=== PATIENT | male | born 1985 | race Caucasian/White ===

== ENCOUNTER → 2018-04-28 09:22 | Outpatient (REF) | payer SELFPAY | LOC: OM 09:22 | PROVIDERS: Visit Provider Nurse Practitioner Family | DX: Z02.83 Encounter for blood-alcohol and blood-drug test (principal) ==

== ENCOUNTER → 2018-04-28 09:23 | Outpatient (REF) | payer SELFPAY | LOC: OM 09:23 | PROVIDERS: Visit Provider Nurse Practitioner Family | DX: Z02.1 Encounter for pre-employment examination (principal) ==

== ENCOUNTER 2018-06-07 15:41 | Emergency (ER) | payer SELFPAY ==
[2018-06-07 15:52] VITALS: BP 126/80; PULSE 61; RESP 18; TEMP 36.8; O2SAT 99
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
[2018-06-07 17:30] LABS: Abs Immature Grans 0.01 k/cumm (0.0-0.09); Absolute Basophil Count 0.04 k/cumm (0.0-0.2); Absolute Eosinophil Count 0.17 k/cumm (0.0-0.7); Absolute Monocyte Count 0.71 k/cumm (0.11-0.7); Basophils % 0.4; Eosinophils % 1.8; HCT 44.5 % (40.0-50.0); Immature Grans % 0.1; Lymphocytes % 31.5; Mean Corp. HGB Concentration 33.7 g/dL (32.0-36.0); Mean Corpuscular Hemoglobin 30.4 pg (27.0-33.0); Mean Corpuscular Volume 90.3 fL (80-95); Mean Platelet Volume 10.9 fL (8.0-11.0); Monocytes % 7.5; Neutrophils % 58.7; Platelet Count 217 x1000/uL (130-400); RBC 4.93 m/cumm (4.50-6.00); RBC Distribution Width 12.9 % (11.8-14.1); White Blood Cell Count 9.53 k/cumm (4.4-10.8)
[2018-06-07 17:38] LABS: Bilirubin Negative (Negative); Blood Negative (Negative); Clarity Clear; Glucose Negative (Negative); Ketones Negative (Negative); Leukocyte Esterase Negative (Negative); Nitrite Negative (Negative); Urobilinogen 0.2 EU/dL (Up TO 0.2); pH 5.5 (5-8)
[2018-06-07] MEDS: Lidocaine 5% Patch 1 PATCH TP (17:43)
[2018-06-07 17:44] LABS: ALT 18 U/L (12-78); AST 22 U/L (15-37); Albumin 4.1 g/dL (3.4-5.0); Alkaline Phosphatase 68 U/L (46-116); Anion Gap 7.3 mmol/L (3-11); BUN 14 mg/dL (7-18); Bilirubin, Total 0.4 mg/dL (0.2-1.0); CO2 30.7 mmol/L (21.0-32.0); Chloride 101 mmol/L (98-107); Glucose 88 mg/dL (70-100); Magnesium 1.9 mg/dL (1.8-2.4); Potassium 4.1 mmol/L (3.5-5.1); Sodium 139 mmol/L (136-145); Total Protein 7.5 g/dL (6.4-8.2)
[2018-06-07] MEDS: Normal Saline 1,000 ML 150 ML IV (17:44)
[2018-06-07 17:45] LABS: Troponin I < 0.02 ng/mL (0.00-0.06)
--- NOTE | 2018-06-08 09:09 | PDOC.ERCMPRO ---
Care Management Progress Note 06/08/18-Pt seen on 06/07/18 with back pain by LYDIA Malin. Referral for f/u within one week and pcp establish sent to [facility] as Narendra Alvarado is registered nurse practitioner.
--- NOTE | 2018-06-18 16:36 | NUR.NOTE ---
IV D/C'D at 1830 Nursing Note:
== END 2018-06-07 19:15 | disposition home or self-care (01) ==
PROVIDERS: Emergency Provider Physician Assistant
DX: M53.3 Sacrococcygeal disorders, not elsewhere classified (principal); M54.41 Lumbago with sciatica, right side
CPT/HCPCS: 80053; 93005; 99283; 81003; 83735; 84484; 85025; 93010

== ENCOUNTER 2018-07-09 17:12 | Emergency (ER) | payer SELFPAY ==
[2018-07-09 17:26] VITALS: BP 137/97; PULSE 78; RESP 18; TEMP 36.7; O2SAT 99
[2018-07-09] MEDS: Penicillin V POTASSIUM 500 MG TAB PO (17:53)
[2018-07-09] MEDS: Ketorolac 60 MG/2 ML VIAL IM (17:53)
--- NOTE | 2018-07-09 18:04 | W.ED.GENAD ---
Discharge Plan Disposition Patient Disposition: HOME Condition: Stable Discharge Details Chief Complaint: FacialProb Clinical Impression: Infected dental caries Primary Care Provider: NONE,NONE ED Provider: Marin Holley Home Meds and New Rx's Prescriptions: New penicillin V potassium 500 mg tablet 500 mg PO QID 7 Days Qty: 28 RF: 0 No Action aspirin-caffeine [Prieto Back and Body] 1 EACH tablet 2 tab PO PRN PRNRF: 0 Discharge Instructions Instructions: Dental Abscess (ED), Dental Caries (ED) Additional Instructions: Return for any new or significant worsening of symptoms. Otherwise take your antibiotics as prescribed and until fully gone and follow-up with a dentist preferably in the next week. Until 2 AM please use acetaminophen as needed for pain control. Then you may take 600 mg of ibuprofen every 6 hours as needed for discomfort. Referrals: Primary Care Provider [Outside] (Follow-up with dentist preferably next week) Discharge Data Discharge Date/Time-TO BE ENTERED AT DEPARTURE: 07/09/18 18:38 Medical Decision Making Patient presents the emergency department chief complaint of dental pain. Patient states his he has had chronic dental issues and has not taken good care of his teeth but over the last 3 days he has noticed significant worsening of his discomfort. Patient denies any injury or trauma does state an old fractured tooth #6 that has been bothering him for a while but biggest concern is some slight swelling to his face and severe pain to tooth #31 and #2. Physical exam shows tenderness to the above-mentioned teeth but no significant fluctuance, induration, tongue and rest of oral cavity is normal and no trismus is noted. Doubt retropharyngeal or peritonsillar abscess, David's angina, severe abscess. Patient does have mild right-sided anterior cervical lymphadenopathy otherwise exam is unremarkable. Patient states that he does not have any insurance and does not have much financial resources. Patient placed up on Pen-V K for 1 week. Patient offered dental block emergency department which he declined at this time. Patient was given IM ketorolac for pain control. Patient encouraged to take antibiotic as prescribed until fully completed and use dsyq-axk-[id number] pain medication as needed for discomfort. After discussion of diagnosis and plan of care patient has no further needs, questions, or concerns and states clear understanding to return to the emergency department for any worsening symptoms. HPI General Mode of arrival: ambulatory. Date/Time Provider Initiated Documentation: 07/09/18 17:30. Limitations to Documentation: no limitations. Information obtained by: patient. History of Present Illness 33 year old M presents to the emergency department with the chief complaint of Dental pain, described as severe, with intensity rated at 10. Quality is described as sharp, and is localized to the mouth. and it has been constant. No relieving factors improve symptom(s), Patient notes no other symptoms.. Patient did receive the following treatments prior to arrival, NSAID Related Data Home Medications Medication Instructions Recorded Confirmed aspirin-caffeine [Prieto Back & 2 tab PO PRN PRN 10/27/16 07/09/18 Body Caplet] penicillin V potassium 500 mg PO QID 7 Days #28 tab 07/09/18 Previous Rx's Medication Instructions Recorded penicillin V potassium 500 mg PO QID 7 Days #28 tab 07/09/18 Allergies Allergy/AdvReac Type Severity Reaction Status Date / Time iodine Allergy Intermediate rash/swelli Unverified 06/07/18 15:57 ng codeine AdvReac Mild vomiting Unverified 06/07/18 15:57 General Stated Complaint: FacialProb ANH: 3 Review of Systems Constitutional Denies chills and Denies fever(s) ENT Reports as per HPI, Denies change in voice, Reports dental pain, Denies dysphagia, Reports mouth pain and Denies tongue swelling Cardiovascular Denies chest pain and Denies dyspnea Respiratory Denies dyspnea Gastrointestinal Denies dysphagia Integumentary/Breasts Denies rash Allergic/Immunologic Denies tongue swelling PFS Social History Smoking/Tobacco Use Status: Current every day Exam Const General: cooperative Orientation: alert, awake and oriented x3 Limitations: mental status not altered [facility] Head: normal to inspection, normocephalic and atraumatic Ears: hearing grossly normal bilaterally, normal mastoids bilaterally and no periauricular adenopathy General nose exam: external nose normal Mouth: oropharynx normal, no drooling, no muffled voice, normal tongue and no trismus Teeth and gingiva: abnormal tooth or associated gingiva, caries, poor dentition and other (Partially fractured tooth #6 with erythema surrounding the base of the tooth) Throat: posterior oropharynx normal, tonsils normal and uvula midline Eyes General: appearance normal, both eyes and all related structures Pupils: PERRL Neck Neck: normal visual inspection, full ROM, no lymphadenopathy, no meningeal signs, trachea midline, supple, no anterior neck swelling and no midline deformity Resp Effort & Inspection: normal respiratory effort and able to speak in complete sentences Course Vital Signs Temperature 36.7 C 07/09/18 17:26 Pulse 78 07/09/18 17:26 Respiratory Rate 18 07/09/18 17:26 Blood Pressure 137/97 H 07/09/18 17:26 Pulse Oximetry 99 07/09/18 17:26 Temperature 36.7 C 07/09/18 17:26 Temperature Source Skin 07/09/18 17:26 Pulse 78 07/09/18 17:26 Respiratory Rate 18 07/09/18 17:26 Respiratory Effort 07/09/18 17:30 Blood Pressure 137/97 H 07/09/18 17:26 Blood Pressure Position Sitting 07/09/18 17:26 Pulse Oximetry 99 07/09/18 17:26 Oxygen Delivery Method Room Air 07/09/18 17:26 Oxygen Flow Rate 0 07/09/18 17:26 Pain Level 10 07/09/18 17:53
--- NOTE | 2018-07-09 18:20 | NUR.NOTE ---
Nursing Note: Per [employer] VO, patient given 3 tabs of penicillin vk 500 mg for home use
[2018-07-09] MEDS: Penicillin V POTASSIUM 500 MG TAB 1500 MG (18:24)
== END 2018-07-09 18:38 | disposition home or self-care (01) ==
PROVIDERS: Emergency Provider Nurse Practitioner Family
DX: K04.7 Periapical abscess without sinus (principal); F17.210 Nicotine dependence, cigarettes, uncomplicated
CPT/HCPCS: 96372; 99284; J1885

== ENCOUNTER 2018-08-21 10:38 | Emergency (ER) | payer MEDICAID, SELFPAY ==
[2018-08-21 10:42] VITALS: BP 110/87; PULSE 66; RESP 16; TEMP 36.9; O2SAT 99
--- NOTE | 2018-08-21 11:01 | W.ED.GENAD ---
Discharge Plan Disposition Patient Disposition: HOME Condition: Good Discharge Details Chief Complaint: DentalOral Clinical Impression: Dental abscess Primary Care Provider: None,None ED Provider: Kendall Osorio Home Meds and New Rx's Prescriptions: New penicillin V potassium 500 mg tablet 500 mg PO QID Qty: 40 RF: 0 Discharge Instructions Instructions: Dental Abscess (ED) Referrals: Marin Mcknight [DENTIST] - Sindhu Jung DDS [DENTIST] - Gretchen Sue DDS [MD CONSULTING PHYSICIAN] - Medical Decision Making With history of IVDU and recurrent dental abscess we will treat with Pen VK for ten days. We discussed the risk of IVDU and dental infection and complications with pericarditis. He did not want to stay for any cardiac workup for his intermittent CP. I explained he should return if symptoms worsen. Otherwise with dentist SEAN. He verbally agreed. HPI General Date/Time Provider Initiated Documentation: 08/21/18 10:40. Limitations to Documentation: no limitations. Information obtained by: patient and family. History of Present Illness 33 year old M presents to the emergency department with the chief complaint of dental abscess, HPI Narrative: 33 y/o male here with c/o dental pain with abscess. Has chronic dental issues with last antibiotics for dental abscess approximately one month ago, prescribed out of this ED. Last night he felt a pop and drainage to the right lower back dentition. He has previous history of IVDU but not for a few years. Denies fever or chills. Last time his face and throat swelled up and he is concerned that might happen again. He has a dentist and previously was offered root canal and/or losing the tooth. He was trying to salvage the tooth but feels he may have to have them pulled. Related Data Home Medications Medication Instructions Recorded Confirmed penicillin V potassium 500 mg PO QID #40 tab 08/21/18 Previous Rx's Medication Instructions Recorded penicillin V potassium 500 mg PO QID #40 tab 08/21/18 Allergies Allergy/AdvReac Type Severity Reaction Status Date / Time iodine Allergy Intermediate rash/swelli Unverified 08/21/18 10:47 ng codeine AdvReac Mild vomiting Unverified 08/21/18 10:47 General Stated Complaint: DentalOral ANH: 4 Review of Systems Eyes Reports system reviewed and no additional complaints, except as docu ENT Reports dental pain (with abscess) Cardiovascular Reports chest pain (intermittently ) Respiratory Reports system reviewed and no additional complaints, except [facility] Gastrointestinal Reports system reviewed and no additional complaints, except as [facility] Neurologic Reports system reviewed and no additional complaints, except as [facility] Social History Smoking/Tobacco Use Status: Current every day Exam Const General: cooperative, comfortable and no acute distress Nutritional Appearance: well nourished Orientation: alert, awake and oriented x3 HENMT Head: atraumatic Ears: hearing grossly normal bilaterally, external ears normal and TM's normal bilaterally General nose exam: external nose normal and nares normal Mouth: oral mucosae normal, lip normal, tongue normal, oropharynx normal and moist mucous membranes Teeth and gingiva: dentition normal and gingiva abnormal tender (at tooth number 32 and behind) Throat: posterior oropharynx normal Eyes General: appearance normal, both eyes and all related structures Neck Neck: normal visual inspection, full ROM and no lymphadenopathy Resp Effort & Inspection: normal respiratory effort Auscultation: clear to auscultation bilaterally Cardio Rate: regular rate Rhythm: regular rhythm Heart Sounds: S1 normal, S2 normal and no murmurs Skin General skin exam: no rashes or lesions noted Neuro General: alert, awake, oriented x3 and gait normal Extrem General: full ROM and normal capillary refill Psych Appearance: grossly normal and well kempt Mental Status: mental status grossly normal Speech and Movement: speech and movement normal Mood: congruent mood Affect: normal affect Attitude: cooperative Course Vital Signs Temperature 36.9 C 08/21/18 10:42 Pulse 66 08/21/18 10:42 Respiratory Rate 16 08/21/18 10:42 Blood Pressure 110/87 08/21/18 10:42 Pulse Oximetry 99 08/21/18 10:42 Temperature 36.9 C 08/21/18 10:42 Temperature Source Skin 08/21/18 10:42 Pulse 66 08/21/18 10:42 Respiratory Rate 16 08/21/18 10:42 Respiratory Effort Non-Labored 08/21/18 10:45 Blood Pressure 110/87 08/21/18 10:42 Pulse Oximetry 99 08/21/18 10:42 Pain Level 2 08/21/18 10:48
--- NOTE | 2018-08-21 11:05 | ED.GENADUL_ITS ---
Discharge Plan Disposition Patient Disposition: HOME Condition: Good Discharge Details Chief Complaint: DentalOral Clinical Impression: Dental abscess Primary Care Provider: None,None ED Provider: Kendall Osorio Home Meds and New Rx's Prescriptions: New penicillin V potassium 500 mg tablet 500 mg PO QID Qty: 40 RF: 0 Discharge Instructions Instructions: Dental Abscess (ED) Referrals: Marin Mcknight [DENTIST] - Sindhu Jung DDS [DENTIST] - Gretchen Sue DDS [MD CONSULTING PHYSICIAN] - Medical Decision Making With history of IVDU and recurrent dental abscess we will treat with Pen VK for ten days. We discussed the risk of IVDU and dental infection and complications with pericarditis. He did not want to stay for any cardiac workup for his intermittent CP. I explained he should return if symptoms worsen. Otherwise with dentist SEAN. He verbally agreed. HPI General Date/Time Provider Initiated Documentation: 08/21/18 10:40 . Limitations to Documentation: no limitations . Information obtained by: patient and family . History of Present Illness 33 year old M presents to the emergency department with the chief complaint of dental abscess, HPI Narrative: 33 y/o male here with c/o dental pain with abscess. Has chronic dental issues with last antibiotics for dental abscess approximately one month ago, prescribed out of this ED. Last night he felt a pop and drainage to the right lower back dentition. He has previous history of IVDU but not for a few years. Denies fever or chills. Last time his face and throat swelled up and he is concerned that might happen again. He has a dentist and previously was offered root canal and/or losing the tooth. He was trying to salvage the tooth but feels he may have to have them pulled. Related Data Home Medications Medication Instructions Recorded Confirmed penicillin V potassium 500 mg PO QID #40 tab 08/21/18 Previous Rx's Medication Instructions Recorded penicillin V potassium 500 mg PO QID #40 tab 08/21/18 Allergies Allergy/AdvReac Type Severity Reaction Status Date / Time iodine Allergy Intermediate rash/swelli Unverified 08/21/18 10:47 ng codeine AdvReac Mild vomiting Unverified 08/21/18 10:47 General Stated Complaint: DentalOral ANH: 4 Review of Systems Eyes Reports system reviewed and no additional complaints, except as docu ENT Reports dental pain (with abscess) Cardiovascular Reports chest pain (intermittently ) Respiratory Reports system reviewed and no additional complaints, except [facility] Gastrointestinal Reports system reviewed and no additional complaints, except as [facility] Neurologic Reports system reviewed and no additional complaints, except as [facility] Social History Smoking/Tobacco Use Status: Current every day Exam Const General: cooperative, comfortable and no acute distress Nutritional Appearance: well nourished Orientation: alert, awake and oriented x3 HENMT Head: atraumatic Ears: hearing grossly normal bilaterally, external ears normal and TM's normal bilaterally General nose exam: external nose normal and nares normal Mouth: oral mucosae normal, lip normal, tongue normal, oropharynx normal and moist mucous membranes Teeth and gingiva: dentition normal and gingiva abnormal tender (at tooth number 32 and behind) Throat: posterior oropharynx normal Eyes General: appearance normal, both eyes and all related structures Neck Neck: normal visual inspection, full ROM and no lymphadenopathy Resp Effort & Inspection: normal respiratory effort Auscultation: clear to auscultation bilaterally Cardio Rate: regular rate Rhythm: regular rhythm Heart Sounds: S1 normal, S2 normal and no murmurs Skin General skin exam: no rashes or lesions noted Neuro General: alert, awake, oriented x3 and gait normal Extrem General: full ROM and normal capillary refill Psych Appearance: grossly normal and well kempt Mental Status: mental status grossly normal Speech and Movement: speech and movement normal Mood: congruent mood Affect: normal affect Attitude: cooperative Course Vital Signs Temperature 36.9 C 08/21/18 10:42 Pulse 66 08/21/18 10:42 Respiratory Rate 16 08/21/18 10:42 Blood Pressure 110/87 08/21/18 10:42 Pulse Oximetry 99 08/21/18 10:42 Temperature 36.9 C 08/21/18 10:42 Temperature Source Skin 08/21/18 10:42 Pulse 66 08/21/18 10:42 Respiratory Rate 16 08/21/18 10:42 Respiratory Effort Non-Labored 08/21/18 10:45 Blood Pressure 110/87 08/21/18 10:42 Pulse Oximetry 99 08/21/18 10:42 Pain Level 2 08/21/18 10:48
== END 2018-08-21 11:18 | disposition home or self-care (01) ==
LOC: ER 11:18
PROVIDERS: Emergency Provider Nurse Practitioner Family
DX: R68.84 Jaw pain (principal); K04.7 Periapical abscess without sinus
CPT/HCPCS: 99283

== ENCOUNTER 2018-09-27 20:12 | Outpatient (REF) | payer MEDICAID, SELFPAY ==
[2018-09-27 21:12] LABS: ALT 26 U/L (12-78); AST 28 U/L (15-37); Albumin 4.2 g/dL (3.4-5.0); Alkaline Phosphatase 68 U/L (46-116); Anion Gap 8.1 mmol/L (3-11); BUN 19 mg/dL (7-18); Bilirubin, Total 0.3 mg/dL (0.2-1.0); CO2 28.9 mmol/L (21.0-32.0); CREATININE 0.95 mg/dL (0.70-1.30); Calcium 9.4 mg/dL (8.5-10.1); Chloride 103 mmol/L (98-107); Glucose 82 mg/dL (70-100); Sodium 140 mmol/L (136-145); Total Protein 7.1 g/dL (6.4-8.2)
[2018-09-27 21:45] LABS: Abs Immature Grans 0.01 k/cumm (0.0-0.09); Absolute Basophil Count 0.04 k/cumm (0.0-0.2); Absolute Eosinophil Count 0.13 k/cumm (0.0-0.7); Absolute Lymphocyte Count 2.85 k/cumm (1.2-3.4); Absolute Monocyte Count 0.38 k/cumm (0.11-0.7); Absolute Neutrophil Count 5.25 k/cumm (1.2-6.7); Basophils % 0.5; Eosinophils % 1.5; Immature Grans % 0.1; Lymphocytes % 32.9; Mean Corp. HGB Concentration 34.1 g/dL (32.0-36.0); Mean Corpuscular Hemoglobin 30.8 pg (27.0-33.0); Mean Corpuscular Volume 90.1 fL (80-95); Mean Platelet Volume 11.8 fL (8.0-11.0); Monocytes % 4.4; Neutrophils % 60.6; Platelet Count 209 x1000/uL (130-400); RBC 4.55 m/cumm (4.50-6.00); RBC Distribution Width 12.7 % (11.8-14.1); White Blood Cell Count 8.66 k/cumm (4.4-10.8)
[2018-09-29 11:30] LABS: Hepatitis C Ab w Rflx HCV PCR Reactive (NEGAT)
[2018-09-30 15:40] LABS: HCV RNA Detection Quantitative Undetected IU/mL (UNDECT)
== END 2018-09-27 20:32 ==
LOC: NCHCN 20:12
PROVIDERS: Visit Provider Nurse Practitioner Family
DX: F43.20 Adjustment disorder, unspecified (principal); B19.20 Unspecified viral hepatitis C without hepatic coma; F19.10 Other psychoactive substance abuse, uncomplicated; M54.5 Low back pain; M54.31 Sciatica, right side; K04.7 Periapical abscess without sinus
CPT/HCPCS: 80053; 86803; 85025; 87522

== ENCOUNTER 2018-12-26 19:08 | Emergency (ER) | payer MEDICAID, SELFPAY ==
[2018-12-26 19:16] VITALS: BP 135/76; PULSE 64; RESP 17; TEMP 36.6; O2SAT 100
--- NOTE | 2018-12-26 19:34 | W.ED.GENAD ---
Discharge Plan Disposition Patient Disposition: HOME Condition: Good Discharge Details Chief Complaint: DentalOral Clinical Impression: Pain, dental Primary Care Provider: Adriana Mercer ED Provider: Walt Beatty Home Meds and New Rx's Prescriptions: New acetaminophen [Mapap Extra Strength] 500 MG tablet 1,000 mg PO Q6H 5 Days Qty: 60 RF: 0 ibuprofen [Motrin IB] 200 MG tablet 600 mg PO Q6H 5 Days Qty: 60 RF: 0 clindamycin HCl 150 mg capsule 450 mg PO TID 7 Days Qty: 63 RF: 0 Discharge Instructions Instructions: Toothache (ED) Additional Instructions: Please take the medication as directed. Please follow-up immediately with your dentist. Please take the antibiotic with yogurt to prevent any diarrhea. If you notice any worsening of your symptoms, or any new symptoms such as vomiting, diarrhea, fever, chills, shortness of breath, chest pain, numbness, weakness, or fainting , please return immediately to the emergency department for reevaluation. Please follow up with your primary care provider as soon as possible for reassessment and reevaluation. As always, it was a pleasure participating in your medical care today. Referrals: Adriana Mercer [Primary Care Provider] - Medical Decision Making This is a 33-year-old male who presents for evaluation of left frontal upper dental pain for the last 24 hours. Physical exam demonstrates evidence of poor dentition, no evidence of a significantly fractured tooth. No evidence of abscess requiring drainage. Physical exam is concerning for colitis, most likely secondary to chronic underlying dental caries and infection. We will start clindamycin for the patient as he is tolerated this well before. He does not want a dental block. We discussed red flags which return the importance of close follow-up with his dentist as well as Tylenol Motrin at home. The patient understands. I have extensively reviewed the treatment plan and discharge instructions with the patient. I have addressed all patient concerns at this time. The patient was made aware of what symptoms to monitor for that would warrant a return to the emergency department. Discussed the plan with the patient, they demonstrate verbal understanding and agreement with our assessment and plan at this time. HPI General Date/Time Provider Initiated Documentation: 12/26/18 19:34. HPI Narrative: This is a 33-year-old male with past medical history of dental caries, who is already had these from 2-3 place, who presents today for evaluation of left frontal upper tooth pain. It occurred 24 hours while he was eating, he was chewing something hard and felt a pop. Since then he has had notable pain for his left upper frontal tooth. He denies any fever or chills. He has had similar symptoms like this in the past which have required antibiotics before. He denies any fever, chills, headache, chest pain, shortness of breath. He denies any other medical problems, IV illicit drug use or other pertinent history. He has contacted his dentist who recommended antibiotics prior to evaluation for tooth extraction. Related Data Home Medications Medication Instructions Recorded Confirmed acetaminophen [Mapap Extra 1,000 mg PO Q6H 5 Days #60 tab 12/26/18 Strength] clindamycin HCl 450 mg PO TID 7 Days #63 cap 12/26/18 ibuprofen [Motrin Ib] 600 mg PO Q6H 5 Days #60 tab 12/26/18 Previous Rx's Medication Instructions Recorded acetaminophen [Mapap Extra 1,000 mg PO Q6H 5 Days #60 tab 12/26/18 Strength] clindamycin HCl 450 mg PO TID 7 Days #63 cap 12/26/18 ibuprofen [Motrin Ib] 600 mg PO Q6H 5 Days #60 tab 12/26/18 Allergies Allergy/AdvReac Type Severity Reaction Status Date / Time iodine Allergy Intermediate rash/swelli Unverified 12/26/18 19:19 ng codeine AdvReac Mild vomiting Unverified 12/26/18 19:19 General Stated Complaint: DentalOral ANH: 4 Review of Systems Review of Systems All systems reviewed & are unremarkable except as noted in HPI and below PFSH Social History Smoking/Tobacco Use Status: Current every day Drug use: Daily Substance use type: marijuana Do you feel safe at home: Yes Do you feel safe in your relationship?: Yes Exam Narrative Exam Narrative: 1.Const: Well-nourished, Well-developed, appearing stated age 2.Eyes: PERRL, no conjunctival injection, and symmetrical lids. 3.ENT: Atraumatic external nose and ears. Moist MM. Neck: Symmetric, trachea midline, No thyromegaly. Mildly poor dentition throughout, left upper tooth #11 demonstrates notable tenderness, no evidence of fracture or abscess. No evidence of periapical swelling. No signs of discharge. No evidence of perioral or periodontal abscess. 4.CVS: +S1/S2, No murmurs or gallops. Peripheral pulses 2+ and equal in all extremities. Brisk capillary refill in all extremities. 5.RESP: Unlabored respiratory effort. Clear to auscultation bilaterally. No wheezes rales or rhonchi 6.GI: Soft, Nontender/Nondistended, No hepatosplenomegaly. No guarding or rebound. 7.MSK: Normocephalic/Atraumatic, Extremities w/o deformity or ttp No cyanosis or clubbing, Normal movement of all extremities 8.Skin: Warm, Dry. No rashes or lesions. 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 Sensation grossly intact, no focal neurologic deficits. 10.Psych: (AAO) x3. Appropriate mood and affect Course Vital Signs Temperature 36.6 C 12/26/18 19:16 Pulse 64 12/26/18 19:16 Respiratory Rate 17 12/26/18 19:16 Blood Pressure 135/76 12/26/18 19:16 Pulse Oximetry 100 12/26/18 19:16 Temperature 36.6 C 12/26/18 19:16 Temperature Source Temporal Artery Scan 12/26/18 19:16 Pulse 64 12/26/18 19:16 Respiratory Rate 17 12/26/18 19:16 Respiratory Effort Non-Labored 12/26/18 19:19 Blood Pressure 135/76 12/26/18 19:16 Blood Pressure Position Sitting 12/26/18 19:16 Pulse Oximetry 100 12/26/18 19:16 Oxygen Delivery Method Room Air 12/26/18 19:16 Oxygen Flow Rate 0 12/26/18 19:16 Pain Level 4 12/26/18 19:16
[2018-12-26 19:45] VITALS: BP 135/76; PULSE 64; RESP 17; TEMP 36.6; O2SAT 100
== END 2018-12-26 19:50 | disposition home or self-care (01) ==
PROVIDERS: Emergency Provider Student in an Organized Health Care Education/Training Program; PCP Nurse Practitioner
DX: K08.89 Other specified disorders of teeth and supporting structures (principal); F17.210 Nicotine dependence, cigarettes, uncomplicated
CPT/HCPCS: 99283

== ENCOUNTER 2019-01-14 12:09 | Emergency (ER) | payer MEDICAID, SELFPAY ==
[2019-01-14 12:12] VITALS: BP 138/88; PULSE 98; RESP 20; TEMP 37.1; O2SAT 96
[2019-01-14 12:17] VITALS: RESP 20
--- NOTE | 2019-01-14 12:32 | ED.GENADUL_ITS ---
Discharge Plan Disposition Patient Disposition: HOME Condition: Improving Discharge Details Chief Complaint: GenMedical Clinical Impression: Frontal sinusitis Primary Care Provider: Adriana Mercer ED Provider: Srinivas Crump Home Meds and New Rx's Prescriptions: New amoxicillin-pot clavulanate 875-125 mg tablet 1 tab PO BID 10 Days Qty: 20 RF: 0 Discharge Instructions Instructions: Sinusitis (ED) Additional Instructions: Please stop the previously prescribed Clindamycin and begin Augmentin. Follow-up with Chadd in clinic at [facility] for recheck. Call for an appointment time. May continue Tylenol and ibuprofen as prescribed previously. Medical Decision Making 33-year-old male presents complaining of headache, recurrent dental infection, as well as chest tightness and anxiety due to legal issues regarding in the custody of a child. He is afebrile, anxious, but well-appearing with normal blood pressure, pulse in the 90s. Differential diagnosis is broad in this gentleman and therefore screening head CT ordered to rule out acute sinusitis, screening EKG and troponin obtained given his complaints of chest tightness, as well screening basic chemistries obtained patient given oral Ativan. CT does reveal mild sinusitis of the frontal and ethmoid sinuses. No acute brain findings. Labs are reassuring. Discussed findings with patient. I feel he will have better response to Augmentin and will have him discontinue the clindamycin. He understands need to follow-up with dentistry as well as in primary care clinic for recheck. Stable for discharge to home at this time Lab Data Lab results reviewed: Yes I reviewed the patient's lab results. Laboratory Results - last 24 hr 01/14/19 01/14/19 12:57 12:57 WBC 8.13 RBC 4.42 L Hgb 13.4 L Hct 39.8 L MCV 90.0 MCH 30.3 MCHC 33.7 RDW 12.4 Plt Count 171 MPV 10.4 Immature Gran % 0.1 Neutrophils % 53.7 Lymphocytes % 37.5 Monocytes % 5.7 Eosinophils % 2.5 Basophils % 0.5 Absolute Neutrophils 4.37 Absolute Lymphocytes 3.05 Absolute Monocytes 0.46 Absolute Eosinophils 0.20 Absolute Basophils 0.04 Sodium 139 Potassium 4.0 Chloride 104 Carbon Dioxide 27.3 Anion Gap 7.7 BUN 16 Creatinine 0.86 Estimated GFR/1.73 m2 >= 60.00 Glucose 86 Calcium 9.1 Total Bilirubin 0.2 AST 22 ALT 29 Alkaline Phosphatase 56 Troponin I < 0.02 Total Protein 6.6 Albumin 3.6 ECG Data Attestation: I personally reviewed and interpreted this ECG (s) as follows: Interpretation: Normal sinus rhythm with a rate of 91, QRS is narrow, no ST segment elevation HPI General Mode of arrival: ambulatory . Date/Time Provider Initiated Documentation: 01/14/19 12:09 . Limitations to Documentation: no limitations . Information obtained by: patient . History of Present Illness 33 year old M presents to the emergency department with the chief complaint of Headache and anxiety and tooth pain, described as moderate, Quality is described as aching, dull and constant, and is localized to the head, face and mouth. Patient reports no radiation. Patient started experiencing this day(s) and it has been constant. No relieving factors improve symptom(s), No exacerbating factors reported . Patient notes other (Anxiety regarding custody of daughter and chest tightness); denies fever/chills, loss of appetite and nausea/vomiting. Patient did receive the following treatments prior to arrival, none Related Data Home Medications Medication Instructions Recorded Confirmed amoxicillin-pot clavulanate 1 tab PO BID 10 Days #20 tab 01/14/19 Previous Rx's Medication Instructions Recorded amoxicillin-pot clavulanate 1 tab PO BID 10 Days #20 tab 01/14/19 Allergies Allergy/AdvReac Type Severity Reaction Status Date / Time iodine Allergy Intermediate rash/swelli Unverified 01/14/19 12:16 ng codeine AdvReac Mild vomiting Unverified 01/14/19 12:16 General Stated Complaint: GenMedical ANH: 3 Review of Systems Review of Systems Taking clindamycin since yesterday. Admits to a great deal of stress regarding custody of his daughter. Positive anxiety. No fall or trauma. No facial numbness or weakness. No change to hearing. 8 systems reviewed and otherwise neg PFSH Social History Smoking/Tobacco Use Status: Current every day Alcohol Intake: former Drug use: Daily Substance use type: marijuana Do you feel safe at home: Yes Do you feel safe in your relationship?: Yes Exam Narrative Exam Narrative: GEN: awake, alert, oriented 3. Pleasant, well groomed, interactive and anxious. HEAD: Normocephalic, atraumatic ENT: Mucous membranes moist, oropharynx with few dental caries, tender to percussion of maxillary central incisors, External ear exam unremarkable EYES: PERRL, EOMI NECK: Full ROM, no MICHI, no menigismus CHEST/RESP: Nontender, clear to auscultation bilateral, no wheeze/rhonchi/rales CARDIOVASCULAR: RRR, no murmur, rub spencer. 2+ Rad pulse bilateral ABDOMEN: Soft, nontender, no mass. +Bowel sounds EXT: Full ROM, no edema, no rash Neuro: Grossly normal neurologic exam, conversant, interactive. Psych: Speech fluent, thoughts congruent, affect anxious Course Vital Signs Temperature 37.1 C 01/14/19 12:12 Pulse 98 H 01/14/19 12:12 Respiratory Rate 20 01/14/19 12:12 Blood Pressure 138/88 01/14/19 12:12 Pulse Oximetry 96 01/14/19 12:12 Temperature 37.1 C 01/14/19 12:12 Temperature Source Temporal Artery Scan 01/14/19 12:12 Pulse 98 H 01/14/19 12:12 Respiratory Rate 20 01/14/19 12:17 Respiratory Effort Non-Labored 01/14/19 12:17 Respiratory Depth Normal 01/14/19 12:17 Respiratory Pattern Normal 01/14/19 12:17 Blood Pressure 138/88 01/14/19 12:12 Pulse Oximetry 96 01/14/19 12:12 Oxygen Delivery Method Room Air 01/14/19 12:12 Oxygen Flow Rate 0 01/14/19 12:12 Pain Level 0 01/14/19 12:12
[2019-01-14] MEDS: Acetaminophen 500 MG TAB 1000 MG PO (13:05)
[2019-01-14] MEDS: LORazepam 1 MG TAB PO (13:05)
[2019-01-14 13:06] LABS: Abs Immature Grans 0.01 k/cumm (0.0-0.09); Absolute Basophil Count 0.04 k/cumm (0.0-0.2); Absolute Lymphocyte Count 3.05 k/cumm (1.2-3.4); Absolute Monocyte Count 0.46 k/cumm (0.11-0.7); Absolute Neutrophil Count 4.37 k/cumm (1.2-6.7); Basophils % 0.5; Eosinophils % 2.5; HCT 39.8 % (40.0-50.0); HGB 13.4 g/dL (13.5-17.5); Immature Grans % 0.1; Lymphocytes % 37.5; Mean Corp. HGB Concentration 33.7 g/dL (32.0-36.0); Mean Corpuscular Hemoglobin 30.3 pg (27.0-33.0); Mean Platelet Volume 10.4 fL (8.0-11.0); Monocytes % 5.7; Neutrophils % 53.7; Platelet Count 171 x1000/uL (130-400); RBC 4.42 m/cumm (4.50-6.00); RBC Distribution Width 12.4 % (11.8-14.1); White Blood Cell Count 8.13 k/cumm (4.4-10.8)
--- NOTE | 2019-01-14 13:25 | DI.CT_ITS ---
SYMPTOMS/DIAGNOSIS: RECENT DENTAL INFECTIONS, HEADACHE CRANIAL CT: Noncontrast cranial CT was performed. The ventricular system is normal in appearance. There is no evidence of acute intracranial hemorrhage, mass effect or midline shift. The orbital and temporal bone structures appear intact. Please see accompanying sinus CT for evaluation of the paranasal sinuses. CONCLUSION: No evidence of intracranial process. SINUS CT: CT examination of the paranasal sinuses was performed without contrast administration. There is mild mucoperiosteal thickening involving frontal and ethmoid sinuses bilaterally and minimal mucoperiosteal thickening is present in the maxillary antra bilaterally. The ostiomeatal complexes of the maxillary antra appear intact bilaterally. Sphenoid sinuses are clear. No bony abnormality seen. CONCLUSION: Findings consistent with minimal chronic sinusitis predominantly involving frontal and ethmoid sinuses.
[2019-01-14 13:28] LABS: ALT 29 U/L (12-78); AST 22 U/L (15-37); Albumin 3.6 g/dL (3.4-5.0); Alkaline Phosphatase 56 U/L (46-116); Anion Gap 7.7 mmol/L (3-11); BUN 16 mg/dL (7-18); Bilirubin, Total 0.2 mg/dL (0.2-1.0); CO2 27.3 mmol/L (21.0-32.0); CREATININE 0.86 mg/dL (0.70-1.30); Calcium 9.1 mg/dL (8.5-10.1); Chloride 104 mmol/L (98-107); Glucose 86 mg/dL (70-100); Sodium 139 mmol/L (136-145); Total Protein 6.6 g/dL (6.4-8.2)
[2019-01-14 13:30] LABS: Troponin I < 0.02 ng/mL (0.00-0.06)
== END 2019-01-14 13:40 | disposition home or self-care (01) ==
LOC: ER 13:43
PROVIDERS: Emergency Provider Emergency Medicine; PCP Nurse Practitioner
DX: J01.10 Acute frontal sinusitis, unspecified (principal); F41.9 Anxiety disorder, unspecified; K04.7 Periapical abscess without sinus
CPT/HCPCS: 36415; 80053; 93005; 99285; 70450; 70486; 84484; 85025; 93010; 99284

== ENCOUNTER 2019-02-14 13:27 | Emergency (ER) | payer MEDICAID, SELFPAY ==
[2019-02-14 13:32] VITALS: BP 126/76; PULSE 82; RESP 20; TEMP 36.8; O2SAT 100
--- NOTE | 2019-02-14 14:00 | W.ED.GENAD ---
Discharge Plan Discharge Details Chief Complaint: Nausea/Vomit/Diar Primary Care Provider: Adriana Mercer ED Provider: Katina Bermeo Home Meds and New Rx's Prescriptions: No Action ibuprofen 600 mg Tablet 600 mg PO TID RF: 0 Discharge Data Discharge Date/Time-TO BE ENTERED AT DEPARTURE: 02/14/19 16:48 Medical Decision Making Rashid Penn is a 33 y/o man with h/o IVDU, hepatitis C, who presented to the emergency department with 5 days of watery stool after multiple courses of abx in the recent past. Denies abd pain. Pt is well and non-toxic appearing on exam, benign cardiopulmonary and abd exam, appears well hydrated. Concern for c. diff vs other possible instestinal pathogen, possible metabolic/lyte disturbance. Plan for screening labs, stool studies. CMP okay. Pt provided stool sample. C. diff not yet resulted. Pt states that he would like to leave, wants to go eat dinner, and does not want to wait any longer for his test results. He states that he wants to leave now, and would like to be called in the am with results. He drank fluids without issue in the ED. I had a lengthy discussion with the Pt re: risks of leaving [facility]MA inc /permanent disability, Pt continued to wish to leave, states he is tired of waiting and feels overall fine. I had a lengthy discussion with the Pt re: RTED precautions, that he may change his mind at any time and RTED, and importance of outpt f/u. Pt verbalized understanding of the plan and was amenbale. All questions answered. Pt dced to home with clear plan for outpt f/u. Pt elected to leave ED without d/c paperwork, d/c information discussed in detail prior to his departure. I contacted the Pt on the evening of 02/15/19 by phone, flagyl prescribed, Pt feeling somewhat improved after one dose, no fevers or pain, outpt f/u has been scheduled. I again discussed RTED precautions, importance of outpt f/u. Medical Records Medical records reviewed: Yes I reviewed the patient's medical records. Lab Data Lab results reviewed: Yes I reviewed the patient's lab results. HPI General Mode of arrival: ambulatory. Date/Time Provider Initiated Documentation: 02/14/19 13:35. Limitations to Documentation: no limitations. Information obtained by: patient, family, RN notes reviewed and old records reviewed. HPI Narrative: Rashid Penn is a 33-year-old man with history of hepatitis C, IV drug use, poor dentition presenting to the emergency department with diarrhea. Patient reports that he has been treated 9 times with antibiotics for dental infection in the past year. He reports that he finished his last course of antibiotics for dental infection approximately 1.5 weeks ago. Patient reports that several days after that he had a tooth removed. He reports that after the tooth removal and approximately 5 days ago, he developed copious watery diarrhea. Patient reports that he has too many episodes of diarrhea to count per day. He reports his symptoms have been unchanged since onset and are severe. No bloody or dark stool. Patient reports that since the dental extraction he has had pain in his left forehead when he clenches his jaw, but otherwise has no pain. No fevers, no vomiting, no rash, no shortness of breath, no cough. He states he has been eating and drinking as usual, but has a bowel movement essentially immediately after any PO intake. Related Data Home Medications Medication Instructions Recorded Confirmed ibuprofen 600 mg PO TID 02/14/19 02/14/19 Allergies Allergy/AdvReac Type Severity Reaction Status Date / Time iodine Allergy Intermediate rash/swelli Unverified 02/14/19 13:34 ng codeine AdvReac Mild vomiting Unverified 02/14/19 13:34 General Stated Complaint: Nausea/Vomit/Diar NAH: 3 Review of Systems Review of Systems Constitutional: denies fevers Eyes: denies eye pain ENT: reports pain in his left hindu when clenching his jaw, denies dental pain, sore throat Cardiovascular: denies chest pain Respiratory: denies SOB, cough GI: denies abdominal pain, vomiting, reports diarrhea : denies flank pain MSK: denies back pain, neck pain, arthralgias, myalgias Skin: denies rash Neuro: denies headaches, weakness PFSH Social History Smoking/Tobacco Use Status: Current every day Alcohol Intake: former Drug use: Daily Substance use type: marijuana Do you feel safe at home: Yes Do you feel safe in your relationship?: Yes Exam Narrative Exam Narrative: Constitutional: well and [id number], pleasant, conversing normally, walking about the ED without issue HENT: head atraumatic/normocephalic/normal inspection, mucous membranes moist, dental extraction site healing well without erythema or discharge, no intraoral lesion, no TTP over left TMJ, over left facial bones, or over area of pain in left hindu, no facial rash Eyes: conjunctiva normal, sclera normal, pupils 3mm b/l Neck: no stridor, normal ROM, trachea midline Resp: normal work of breathing, LCTAB Cardio: normal rate, normal rhythm, no murmur appreciated GI: abdomen soft, non-tender, non-distended Skin: warm, dry, normal color, no rash Neuro: alert, not altered, grossly non-focal, normal tone Ext: moving all extremities equally Psych: normal mood, normal affect, normal behavior Course Vital Signs Temperature 36.8 C 02/14/19 13:32 Pulse 82 02/14/19 13:32 Respiratory Rate 20 02/14/19 13:32 Blood Pressure 126/76 02/14/19 13:32 Pulse Oximetry 100 02/14/19 13:32 Temperature 36.8 C 02/14/19 13:32 Temperature Source Temporal Artery Scan 02/14/19 13:32 Pulse 82 02/14/19 13:32 Respiratory Rate 20 02/14/19 13:32 Respiratory Effort Non-Labored 02/14/19 13:32 Blood Pressure 126/76 02/14/19 13:32 Blood Pressure Position Sitting 02/14/19 13:32 Pulse Oximetry 100 02/14/19 13:32 Oxygen Delivery Method Room Air 02/14/19 13:32 Oxygen Flow Rate 0 02/14/19 13:32 Pain Level 3 02/14/19 13:32
[2019-02-14 16:08] LABS: Abs Immature Grans 0.03 k/cumm (0.0-0.09); Absolute Basophil Count 0.04 k/cumm (0.0-0.2); Absolute Eosinophil Count 0.09 k/cumm (0.0-0.7); Absolute Monocyte Count 0.81 k/cumm (0.11-0.7); Basophils % 0.3; Eosinophils % 0.7; HCT 42.9 % (40.0-50.0); Immature Grans % 0.2; Lymphocytes % 17.7; Mean Corpuscular Volume 88.6 fL (80-95); Mean Platelet Volume 10.5 fL (8.0-11.0); Monocytes % 6.4; Neutrophils % 74.7; Platelet Count 190 x1000/uL (130-400); RBC 4.84 m/cumm (4.50-6.00); RBC Distribution Width 12.3 % (11.8-14.1); White Blood Cell Count 12.62 k/cumm (4.4-10.8)
[2019-02-14 16:09] LABS: Bilirubin Negative (Negative); Blood Negative (Negative); Clarity Clear; Glucose Negative (Negative); Ketones Negative (Negative); Leukocyte Esterase Negative (Negative); Nitrite Negative (Negative); Specific Gravity <= 1.005 (1.005-1.025); Urobilinogen 0.2 EU/dL (Up TO 0.2); pH 5.5 (5-8)
[2019-02-14 16:11] LABS: Absolute Lymphocyte Count 2.23 k/cumm (1.2-3.4); Absolute Neutrophil Count 9.43 k/cumm (1.2-6.7)
--- NOTE | 2019-02-14 16:11 | ED.GENADUL_ITS ---
Discharge Plan Discharge Details Chief Complaint: Nausea/Vomit/Diar Primary Care Provider: Adriana Mercer ED Provider: Katina Bermeo Home Meds and New Rx's Prescriptions: No Action ibuprofen 600 mg Tablet 600 mg PO TID RF: 0 Discharge Data Discharge Date/Time-TO BE ENTERED AT DEPARTURE: 02/14/19 16:48 Medical Decision Making Rashid Penn is a 33 y/o man with h/o IVDU, hepatitis C, who presented to the emergency department with 5 days of watery stool after multiple courses of abx in the recent past. Denies abd pain. Pt is well and non-toxic appearing on exam, benign cardiopulmonary and abd exam, appears well hydrated. Concern for c. diff vs other possible instestinal pathogen, possible metabolic/lyte disturbance. Plan for screening labs, stool studies. CMP okay. Pt provided stool sample. C. diff not yet resulted. Pt states that he would like to leave, wants to go eat dinner, and does not want to wait any longer for his test results. He states that he wants to leave now, and would like to be called in the am with results. He drank fluids without issue in the ED. I had a lengthy discussion with the Pt re: risks of leaving [facility] /permanent disability, Pt continued to wish to leave, states he is tired of waiting and feels overall fine. I had a lengthy discussion with the Pt re: RTED precautions, that he may change his mind at any time and RTED, and importance of outpt f/u. Pt verbalized understanding of the plan and was amenbale. All questions answered. Pt dced to home with clear plan for outpt f/u. Pt elected to leave ED without d/c paperwork, d/c information discussed in detail prior to his departure. I contacted the Pt on the evening of 02/15/19 by phone, flagyl prescribed, Pt feeling somewhat improved after one dose, no fevers or pain, outpt f/u has been scheduled. I again discussed RTED precautions, importance of outpt f/u. Medical Records Medical records reviewed: Yes I reviewed the patient's medical records. Lab Data Lab results reviewed: Yes I reviewed the patient's lab results. HPI General Mode of arrival: ambulatory . Date/Time Provider Initiated Documentation: 02/14/19 13:35 . Limitations to Documentation: no limitations . Information obtained by: patient, family, RN notes reviewed and old records reviewed . HPI Narrative: Rashid Penn is a 33-year-old man with history of hepatitis C, IV drug use, poor dentition presenting to the emergency department with diarrhea. Patient reports that he has been treated 9 times with antibiotics for dental infection in the past year. He reports that he finished his last course of antibiotics for dental infection approximately 1.5 weeks ago. Patient reports that several days after that he had a tooth removed. He reports that after the tooth removal and approximately 5 days ago, he developed copious watery diarrhea. Patient reports that he has too many episodes of diarrhea to count per day. He reports his symptoms have been unchanged since onset and are severe. No bloody or dark stool. Patient reports that since the dental extraction he has had pain in his left forehead when he clenches his jaw, but otherwise has no pain. No fevers, no vomiting, no rash, no shortness of breath, no cough. He states he has been eating and drinking as usual, but has a bowel movement essentially immediately after any PO intake. Related Data Home Medications Medication Instructions Recorded Confirmed ibuprofen 600 mg PO TID 02/14/19 02/14/19 Allergies Allergy/AdvReac Type Severity Reaction Status Date / Time iodine Allergy Intermediate rash/swelli Unverified 02/14/19 13:34 ng codeine AdvReac Mild vomiting Unverified 02/14/19 13:34 General Stated Complaint: Nausea/Vomit/Diar ANH: 3 Review of Systems Review of Systems Constitutional: denies fevers Eyes: denies eye pain ENT: reports pain in his left roman catholic when clenching his jaw, denies dental pain, sore throat Cardiovascular: denies chest pain Respiratory: denies SOB, cough GI: denies abdominal pain, vomiting, reports diarrhea : denies flank pain MSK: denies back pain, neck pain, arthralgias, myalgias Skin: denies rash Neuro: denies headaches, weakness PFSH Social History Smoking/Tobacco Use Status: Current every day Alcohol Intake: former Drug use: Daily Substance use type: marijuana Do you feel safe at home: Yes Do you feel safe in your relationship?: Yes Exam Narrative Exam Narrative: Constitutional: well and [id number], pleasant, conversing normally, walking about the ED without issue HENT: head atraumatic/normocephalic/normal inspection, mucous membranes moist, dental extraction site healing well without erythema or discharge, no intraoral lesion, no TTP over left TMJ, over left facial bones, or over area of pain in left roman catholic, no facial rash Eyes: conjunctiva normal, sclera normal, pupils 3mm b/l Neck: no stridor, normal ROM, trachea midline Resp: normal work of breathing, LCTAB Cardio: normal rate, normal rhythm, no murmur appreciated GI: abdomen soft, non-tender, non-distended Skin: warm, dry, normal color, no rash Neuro: alert, not altered, grossly non-focal, normal tone Ext: moving all extremities equally Psych: normal mood, normal affect, normal behavior Course Vital Signs Temperature 36.8 C 02/14/19 13:32 Pulse 82 02/14/19 13:32 Respiratory Rate 20 02/14/19 13:32 Blood Pressure 126/76 02/14/19 13:32 Pulse Oximetry 100 02/14/19 13:32 Temperature 36.8 C 02/14/19 13:32 Temperature Source Temporal Artery Scan 02/14/19 13:32 Pulse 82 02/14/19 13:32 Respiratory Rate 20 02/14/19 13:32 Respiratory Effort Non-Labored 02/14/19 13:32 Blood Pressure 126/76 02/14/19 13:32 Blood Pressure Position Sitting 02/14/19 13:32 Pulse Oximetry 100 02/14/19 13:32 Oxygen Delivery Method Room Air 02/14/19 13:32 Oxygen Flow Rate 0 02/14/19 13:32 Pain Level 3 02/14/19 13:32
[2019-02-14 16:19] LABS: ALT 20 U/L (12-78); AST 20 U/L (15-37); Alkaline Phosphatase 67 U/L (46-116); Anion Gap 6.6 mmol/L (3-11); BUN 18 mg/dL (7-18); Bilirubin, Total 0.3 mg/dL (0.2-1.0); CO2 29.4 mmol/L (21.0-32.0); CREATININE 0.92 mg/dL (0.70-1.30); Calcium 9.4 mg/dL (8.5-10.1); Chloride 102 mmol/L (98-107); Glucose 91 mg/dL (70-100); Potassium 3.9 mmol/L (3.5-5.1); Sodium 138 mmol/L (136-145); Total Protein 7.4 g/dL (6.4-8.2)
--- NOTE | 2019-02-15 08:55 | W.ED.FU ---
Follow Up Plan: Patient called the emergency department and requesting results. Results were reviewed and patient was C. difficile positive which was not noted on yesterday's documentation or visit. Patient continues to have symptoms. Discussed oral hydration methods with patient and called in vancomycin 125mg every 6 hours for 10 days. Review of yesterday's vital signs show that vital signs are stable with no significant tachycardia hypotension and over the phone not stating any worsening of condition discontinued symptoms. Called primary care office to have them contact patient for follow-up appointment and reexamination. Return precautions were discussed over the phone.
--- NOTE | 2019-02-15 09:50 | NUR.NOTE ---
Appt made for patient with pcp Chadd Quigley 02/21/19 at 12:15Nursing Note:
[2019-02-16 11:26] LABS: Campylobacter PCR SEE COMMENTS; Salmonella PCR SEE COMMENTS; Shiga Toxin PCR SEE COMMENTS; Shigella/Enteroinvasive Ecoli SEE COMMENTS
== END 2019-02-14 16:48 ==
PROVIDERS: Emergency Provider Student in an Organized Health Care Education/Training Program; PCP Nurse Practitioner
DX: R19.7 Diarrhea, unspecified (principal); Z53.29 Procedure and treatment not carried out because of patient's decision for other reasons
CPT/HCPCS: 36415; 80053; 87505; 99283; 81003; 85025; 87324

== ENCOUNTER 2019-04-18 11:31 | Emergency (ER) | payer MEDICAID, SELFPAY ==
[2019-04-18 11:40] VITALS: BP 116/68; PULSE 72; RESP 15; TEMP 36.5; O2SAT 100
[2019-04-18 12:31] LABS: Bilirubin Negative (Negative); Blood Negative (Negative); Clarity Clear (Clear); Glucose Negative (Negative); Ketones Negative (Negative); Leukocyte Esterase Negative (Negative); Nitrite Negative (Negative); Specific Gravity 1.015 (1.005-1.025); Urobilinogen 0.2 EU/dL (Up TO 0.2)
--- NOTE | 2019-04-18 12:54 | W.ED.GENAD ---
Discharge Plan Disposition Patient Disposition: HOME Condition: Good Discharge Details Chief Complaint: Urinary Clinical Impression: Encounter for medical screening examination Primary Care Provider: Chadd Quigley ED Provider: Walt Beatty Home Meds and New Rx's Prescriptions: No Action ibuprofen 600 mg Tablet 600 mg PO TID RF: 0 Discharge Instructions Additional Instructions: You will be contacted if your urine screens come back positive. Please follow-up closely with your primary care provider. If you notice any worsening of your symptoms, or any new symptoms such as burning when you pee, discharge from your penis, vomiting, diarrhea, fever, chills, shortness of breath, chest pain, numbness, weakness, or fainting , please return immediately to the emergency department for reevaluation. Please follow up with your primary care provider as soon as possible for reassessment and reevaluation. As always, it was a pleasure participating in your medical care today. Referrals: Chadd Quigley, COMPANY DOCTOR [Primary Care Provider] - Discharge Data Discharge Date/Time-TO BE ENTERED AT DEPARTURE: 04/18/19 13:09 Medical Decision Making This is a pleasant 33-year-old male who presents today for evaluation of medical screening exam. The patient significant other was diagnosed with bacterial vaginosis 2 weeks ago. She received a full course of Flagyl. At one episode of intercourse after this. The patient significant other has symptoms of mild nausea and epigastric pain, and Jed is concerned that this may be secondary to continued bacterial vaginosis and wants to be checked. He also wants to be checked for all other STDs. We discussed that the bacterial vaginosis diagnosis is just an overgrowth of normal bacteria and not true STI. The patient will be checked for gonorrhea, chlamydia, and trichomoniasis. He denies any other complaints at this time. Urine will be sent for testing. Patient will be contacted if his results are positive by case management. I have extensively reviewed the treatment plan and discharge instructions with the patient. I have addressed all patient concerns at this time. The patient was made aware of what symptoms to monitor for that would warrant a return to the emergency department. Discussed the plan with the patient, they demonstrate verbal understanding and agreement with our assessment and plan at this time. HPI General Date/Time Provider Initiated Documentation: 04/18/19 11:39. HPI Narrative: This is a 33-year-old male with a past medical history of previous C. difficile, dental caries and infections in the past, who presents today for evaluation of STD check. Patient states that 2 to 3 weeks ago his significant other was diagnosed with bacterial vaginosis. She received a full course of treatment, and then they had intercourse once after words. Since then the patient has had no complications, urethral discharge, dysuria, frequency, or testicular pain whatsoever. However he states he wants to be checked for STDs just to make sure nothing is getting missed. We did discuss that bacterial vaginosis is not an STD, but rather just an overgrowth of normal bacteria. Patient would still like to be tested at this time. No other complaints or modifying factors, he has no other concerns. Related Data Home Medications Medication Instructions Recorded Confirmed ibuprofen 600 mg PO TID 02/14/19 04/18/19 Allergies Allergy/AdvReac Type Severity Reaction Status Date / Time iodine Allergy Intermediate rash/swelli Unverified 04/18/19 11:47 ng codeine AdvReac Mild vomiting Unverified 04/18/19 11:47 General Stated Complaint: Urinary ANH: 4 Review of Systems Review of Systems All systems reviewed & are unremarkable except as noted in HPI and below PFSH Social History Smoking/Tobacco Use Status: Current every day Alcohol Intake: former Drug use: Daily Substance use type: marijuana Do you feel safe at home: Yes Do you feel safe in your relationship?: Yes Exam Narrative Exam Narrative: 1.Const: Well-nourished, Well-developed, appearing stated age 2.Eyes: PERRL, no conjunctival injection, and symmetrical lids. 3.ENT: Atraumatic external nose and ears. Moist MM. Neck: Symmetric, trachea midline, No thyromegaly. 4.CVS: +S1/S2, No murmurs or gallops. Peripheral pulses 2+ and equal in all extremities. Brisk capillary refill in all extremities. 5.RESP: Unlabored respiratory effort. Clear to auscultation bilaterally. No wheezes rales or rhonchi 6.GI: Soft, Nontender/Nondistended, No hepatosplenomegaly. No guarding or rebound. Genital exam demonstrates normally distended bilaterally descended testicles, no testicular, or penile tenderness. No urethral discharge. Normal cremasteric reflex bilaterally. 7.MSK: Normocephalic/Atraumatic, Extremities w/o deformity or ttp No cyanosis or clubbing, Normal movement of all extremities 8.Skin: Warm, Dry. No rashes or lesions. 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 Sensation grossly intact, no focal neurologic deficits. 10.Psych: (AAO) x3. Appropriate mood and affect Course Vital Signs Temperature 36.5 C 04/18/19 11:40 Pulse 72 04/18/19 11:40 Respiratory Rate 15 04/18/19 11:40 Blood Pressure 116/68 04/18/19 11:40 Pulse Oximetry 100 04/18/19 11:40 Temperature 36.5 C 04/18/19 11:40 Temperature Source Temporal Artery Scan 04/18/19 11:40 Pulse 72 04/18/19 11:40 Respiratory Rate 15 04/18/19 11:40 Respiratory Effort Non-Labored 04/18/19 11:46 Blood Pressure 116/68 04/18/19 11:40 Blood Pressure Position Sitting 04/18/19 11:40 Pulse Oximetry 100 04/18/19 11:40 Oxygen Delivery Method Room Air 04/18/19 11:40 Oxygen Flow Rate 0 04/18/19 11:40 Pain Level 0 04/18/19 11:40 Lab/Test Results Lab/Test Results: Laboratory Tests Range/Units 04/18/19 12:18 Urine Color (Yellow) Yellow Urine Clarity (Clear) Clear Urine pH (5-8) 7.0 Ur Specific [place] (1.005-1.025) 1.015 Urine Protein (Negative) mg/dL Negative Urine Ketones (Negative) mg/dL Negative Urine Blood (Negative) Negative Urine Nitrite (Negative) Negative Urine Bilirubin (Negative) Negative Urine Urobilinogen (Up TO 0.2) EU/dL 0.2 Ur Leukocyte Esterase (Negative) Negative Urine Glucose (Negative) mg/dL Negative
[2019-04-18 13:08] VITALS: PULSE 72; RESP 15
[2019-04-18 15:30] LABS: Bacteria Rare HPF (Negative); C & S Indicated? No; Casts Negative LPF (Negative); Crystals Negative HPF (Negative); Epithelial Cells Negative HPF (Negative); Mucus Negative (Negative); Other Cells Negative (Negative); RBC 0-2 (0-2); WBC Negative HPF (0-5)
[2019-04-19 14:11] LABS: Chlamydia Result Negative; GC Result Negative; Specimen Description URINE
== END 2019-04-18 13:09 | disposition home or self-care (01) ==
PROVIDERS: Emergency Provider Student in an Organized Health Care Education/Training Program; PCP Nurse Practitioner Family
DX: Z11.3 Encounter for screening for infections with a predominantly sexual mode of transmission (principal); Z11.8 Encounter for screening for other infectious and parasitic diseases
CPT/HCPCS: 87491; 87591; 99282; 81003; 81015

== ENCOUNTER 2019-05-24 10:51 | Outpatient (REF) | payer MEDICAID, SELFPAY ==
[2019-05-24 19:08] LABS: HCT 48.1 % (40.0-50.0); HGB 16.3 g/dL (13.5-17.5); Mean Corp. HGB Concentration 33.9 g/dL (32.0-36.0); Mean Corpuscular Volume 88.6 fL (80-95); Mean Platelet Volume 11.7 fL (8.0-11.0); Platelet Count 235 x1000/uL (130-400); RBC 5.43 m/cumm (4.50-6.00); RBC Distribution Width 12.5 % (11.8-14.1); White Blood Cell Count 11.05 k/cumm (4.4-10.8)
[2019-05-24 19:13] LABS: Bilirubin Negative (Negative); Blood Trace-intact (Negative); Clarity Clear (Clear); Glucose Negative (Negative); Ketones Trace mg/dL (Negative); Leukocyte Esterase Negative (Negative); Nitrite Negative (Negative); Specific Gravity 1.015 (1.005-1.025); Urobilinogen 0.2 EU/dL (Up TO 0.2); pH 7.5 (5-8)
[2019-05-24 19:54] LABS: Epithelial Cells Negative HPF (Negative); RBC 0-2 (0-2); WBC Negative HPF (0-5)
[2019-05-24 19:55] LABS: Bacteria Rare HPF (Negative); C & S Indicated? No; Casts Negative LPF (Negative); Crystals Negative HPF (Negative); Mucus Negative (Negative); Other Cells Negative (Negative)
[2019-05-24 19:56] LABS: ALT 24 U/L (16-63); AST 34 U/L (15-37); Albumin 5.2 g/dL (3.4-5.0); Alkaline Phosphatase 76 U/L (46-116); Anion Gap 9.5 mmol/L (3-11); BUN 14 mg/dL (7-18); Bilirubin, Total 0.7 mg/dL (0.2-1.0); CO2 28.5 mmol/L (21.0-32.0); CREATININE 1.04 mg/dL (0.70-1.30); Calcium 10.1 mg/dL (8.5-10.1); Chloride 101 mmol/L (98-107); Glucose 78 mg/dL (70-100); Potassium 4.9 mmol/L (3.5-5.1); Sodium 139 mmol/L (136-145); Total Protein 8.7 g/dL (6.4-8.2)
[2019-05-26 11:12] LABS: HIV-1/2 Ag & Ab Screen Negative (NEGAT)
[2019-05-26 11:51] LABS: Syphilis Serology (RPR) Negative (Negative)
[2019-05-26 13:23] LABS: Chlamydia Result Negative; GC Result Negative; Specimen Description URINE
== END 2019-05-24 11:11 ==
LOC: NCHCN 10:51
PROVIDERS: PCP Nurse Practitioner Family; Visit Provider Nurse Practitioner Family
DX: K62.5 Hemorrhage of anus and rectum (principal); R63.4 Abnormal weight loss; R36.9 Urethral discharge, unspecified; Z11.4 Encounter for screening for human immunodeficiency virus [HIV]; Z11.3 Encounter for screening for infections with a predominantly sexual mode of transmission
CPT/HCPCS: 80053; 85027; 87389; 87491; 87591; 81003; 81015; 86592

== ENCOUNTER 2019-07-13 19:00 | Emergency (ER) | payer MEDICAID, SELFPAY ==
[2019-07-13 19:08] VITALS: BP 119/87; PULSE 97; RESP 16; TEMP 36.6; O2SAT 96
--- NOTE | 2019-07-13 19:13 | ED.GENADUL_ITS ---
Discharge Plan Disposition Patient Disposition: HOME Condition: Good Discharge Details Chief Complaint: EyeProblem Clinical Impression: Foreign body in eye, Abrasion of eyelid Primary Care Provider: Chadd Quigley ED Provider: Myrtle Funez Home Meds and New Rx's Prescriptions: Continued ibuprofen 600 mg Tablet 600 mg PO TID RF: 0 Discharge Instructions Instructions: Erythromycin (Into the eye), Eye Foreign Body (ED) Additional Instructions: Small nasreen debris was removed from her eye. Please apply 1/2 inch erythromycin ointment to your left eye 4 times daily. [facility] If you develop increased pain, fevers/chills, discharge, change in your vision or other new/worsening symptoms please seek care urgently once again. Referrals: Chadd Quigley, MIDDLE CARD TENDER [Primary Care Provider] - Discharge Data Discharge Date/Time-TO BE ENTERED AT DEPARTURE: 07/13/19 19:55 Medical Decision Making Patient is a 34-year-old male presenting today with chief complaint of foreign body sensation left eye. He reports that yesterday he was cutting wood for hardwood floor and since that time is had foreign body sensation. Denies any visual changes. States that he has washed the eye multiple occasions and has not had improvement of his symptoms. Is not having pain in the eye but rather foreign body sensation and the eye feels scratchy. No fevers or chills. Up-to-date on tetanus. On exam, he has a small dust like particles that uptake foreseen, these were able to remove the Q-tip. Patient had immediate improvement of his symptoms with tetracaine. He does have what appears to be a abrasion on the inside of the upper lid that uptake floor seen. Unforeseen is not utilized, unable to appreciate this defect. This is likely with the patient's feeling is probably from a piece of wood got into his eye that has subsequently been removed. Patient will be treated with erythromycin ointment. He was given strict return precautions. Advise follow-up with [facility] eye care in the next 48 hours. All the questions and concerns were addressed and he is in agreement with this plan. HPI General Mode of arrival: ambulatory . Date/Time Provider Initiated Documentation: 07/13/19 19:02 . Limitations to Documentation: no limitations . Information obtained by: patient, family () and RN notes reviewed . History of Present Illness 34 year old M presents to the emergency department with the chief complaint of sensation of FB in left eye, described as moderate, Quality is described as aching, and is localized to the eyes. Patient reports no radiation. Patient started experiencing this day(s) (1) and it has been constant. No relieving factors improve symptom(s), No exacerbating factors reported . Patient notes no other symptoms.; denies fever/chills, headaches, nausea/vomiting, rash and other (no change in visual changes). Patient did receive the following treatments prior to arrival, other (washed eye multiple times) Related Data Home Medications Medication Instructions Recorded Confirmed ibuprofen 600 mg PO TID 02/14/19 07/13/19 Allergies Allergy/AdvReac Type Severity Reaction Status Date / Time iodine Allergy Intermediate rash/swelli Unverified 07/13/19 19:10 ng codeine AdvReac Mild vomiting Unverified 07/13/19 19:10 General Stated Complaint: EyeProblem ANH: 3 Review of Systems Constitutional Constitutional: Reports as per HPI, Denies chills, Denies fatigue, Denies fever(s) and Denies headache(s) Eyes Eyes: Reports as per HPI ENT Ears, Nose, Mouth, and Throat: Denies headache(s) Cardiovascular Cardiovascular: Reports as per HPI, Denies chest pain and Denies lightheadedness Respiratory Respiratory: Denies cough Integumentary/Breasts Skin/Breast: Reports as per HPI, Denies rash, Denies skin pain and Denies skin swelling Neurologic Neurologic: Denies headache(s) and Denies radicular pain Endocrine Endocrine: Denies fatigue [facility] Medical History Abnormal weight loss (Acute) Acute stress reaction (Acute) Blurred vision (Acute) Chronic abdominal pain (Acute) Hepatitis C antibody test positive (Acute) Lower back pain (Acute) Polysubstance abuse (Acute) Rectal bleeding (Acute) Sciatica (Acute) Social History Smoking/Tobacco Use Status: Current every day Tobacco Type: cigarettes Alcohol Intake: former Drug use: Daily Substance use type: marijuana Do you feel safe at home: Yes Do you feel safe in your relationship?: Yes Exam Const General: cooperative, healthy appearing, comfortable, no acute distress, well developed and well groomed Nutritional Appearance: average body habitus and well nourished Orientation: alert, awake and oriented x3 [facility] Head: normal to inspection, normocephalic and atraumatic Ears: hearing grossly normal bilaterally and external ears normal General nose exam: external nose normal and nares normal Face and sinus: normal facial exam and face symmetric Mouth: oral mucosae normal, lip normal and moist mucous membranes Eyes Visual [place]: normal visual thurston by confrontation Alignment and Position: alignment normal and position normal Periorbital: periorbital findings normal Eyelids: eyelid abnormality left upper eyelid (uptake of flouroscein showing abrasion, no FB) Conjunctivae: conjunctivae normal Sclera: sclerae normal Cornea: corneas normal and fluorescein used (small dust-like particles noted in floating in the eye, removed with qtip) Pupils: PERRL, normal by confrontation and accommodation normal EOM: EOM intact bilaterally Resp Effort & Inspection: normal respiratory effort, able to speak in complete sentences and no respiratory distress Skin General skin exam: no rashes or lesions noted Neuro General: alert, awake and oriented x3 Cranial Nerves: CN's II-XI intact bilaterally Cognition: normal cognition Speech: speech normal Gait: normal gait Psych Appearance: grossly normal and well kempt Mental Status: mental status grossly normal Speech and Movement: speech and movement normal Course Vital Signs Vital signs: Vital Signs Temperature 36.6 C 07/13/19 19:08 Pulse 97 H 07/13/19 19:08 Respiratory Rate 16 07/13/19 19:08 Blood Pressure 119/87 07/13/19 19:08 Pulse Oximetry 96 07/13/19 19:08 Temperature 36.6 C 07/13/19 19:08 Temperature Source Tympanic 07/13/19 19:08 Pulse 97 H 07/13/19 19:08 Respiratory Rate 16 07/13/19 19:08 Respiratory Effort Non-Labored 07/13/19 19:11 Blood Pressure 119/87 07/13/19 19:08 Pulse Oximetry 96 07/13/19 19:08 Pain Level 0 07/13/19 19:08
[2019-07-13 19:54] VITALS: BP 119/87; PULSE 97; RESP 16; O2SAT 96
== END 2019-07-13 19:55 | disposition home or self-care (01) ==
PROVIDERS: Emergency Provider Physician Assistant; PCP Nurse Practitioner Family
DX: T15.82XA Foreign body in other and multiple parts of external eye, left eye, initial encounter (principal); S00.212A Abrasion of left eyelid and periocular area, initial encounter; X58.XXXA Exposure to other specified factors, initial encounter
CPT/HCPCS: 99283

== ENCOUNTER 2019-08-25 15:45 | Outpatient (REF) | payer MEDICAID, SELFPAY ==
[2019-08-25 18:23] LABS: HCT 43.4 % (40.0-50.0); HGB 14.5 g/dL (13.5-17.5); Mean Corp. HGB Concentration 33.4 g/dL (32.0-36.0); Mean Corpuscular Hemoglobin 30.1 pg (27.0-33.0); Mean Platelet Volume 10.9 fL (8.0-11.0); Platelet Count 241 x1000/uL (130-400); RBC 4.82 m/cumm (4.50-6.00); RBC Distribution Width 12.7 % (11.8-14.1); White Blood Cell Count 10.48 k/cumm (4.4-10.8)
[2019-08-25 18:43] LABS: ALT 18 U/L (16-63); AST 46 U/L (15-37); Albumin 4.7 g/dL (3.4-5.0); Alkaline Phosphatase 71 U/L (46-116); Anion Gap 10.2 mmol/L (3-11); BUN 23 mg/dL (7-18); Bilirubin, Total 0.4 mg/dL (0.2-1.0); CO2 28.8 mmol/L (21.0-32.0); CREATININE 1.01 mg/dL (0.70-1.30); Calcium 9.6 mg/dL (8.5-10.1); Calculated LDL 170 mg/dL; Chloride 102 mmol/L (98-107); Cholesterol 250 mg/dL (<200); Glucose 74 mg/dL (74-106); HDL Cholesterol 66 mg/dL (40-60); Potassium 4.3 mmol/L (3.5-5.1); Sodium 141 mmol/L (136-145); Total Protein 7.9 g/dL (6.4-8.2); Triglyceride 73 mg/dL (<150)
[2019-08-25 18:57] LABS: Amylase 78 U/L (25-115)
[2019-08-29 10:26] LABS: PSA, Screening 0.4 ng/mL (0.0-2.5)
== END 2019-08-25 16:05 ==
LOC: NCHCN 15:45
PROVIDERS: PCP Nurse Practitioner Family; Visit Provider Nurse Practitioner Family
DX: R10.9 Unspecified abdominal pain (principal); R36.9 Urethral discharge, unspecified; Z12.5 Encounter for screening for malignant neoplasm of prostate; Z13.220 Encounter for screening for lipoid disorders; Z00.00 Encounter for general adult medical examination without abnormal findings
CPT/HCPCS: 80053; 80061; 84153; 85027; 82150; 87086

== ENCOUNTER 2019-08-26 11:56 | Emergency (ER) | payer MEDICAID, SELFPAY ==
[2019-08-26 12:04] VITALS: BP 149/78; PULSE 75; RESP 14; TEMP 36.6; O2SAT 99
--- NOTE | 2019-08-26 12:15 | ED.GENADUL_ITS ---
Discharge Plan Disposition Patient Disposition: HOME Condition: Improving Discharge Details Chief Complaint: GI Bleed Clinical Impression: Hematochezia Primary Care Provider: Chadd Quigley ED Provider: Srinivas Crump Home Meds and New Rx's Prescriptions: Discontinued ibuprofen 600 mg Tablet 600 mg PO TID RF: 0 Discharge Instructions Instructions: Rectal Bleeding (ED) Additional Instructions: Return if you develop a fever, vomiting, persistent GI bleeding, or any other acute concerns. I have asked care management to arrange an outpatient follow-up for you in surgery clinic. The office #[phone]. We have asked for you to have an afternoon appointment. Avoid aspirin or ibuprofen. Medical Decision Making 34-year-old male presents from home. He states he awoke normally and then approximately midmorning developed right lower quadrant pain and tenesmus. He went to the bathroom and had a bloody bowel movement with ongoing right lower quadrant pain. Positive bloody mucus on rectal exam. He arrives he is afebrile with a pulse 75, pressure 149/78. States that he wishes to defer opiate analgesics and acetaminophen due to previous history of opiate dependence and liver failure. Differential diagnosis includes colitis, diverticulitis, internal hemorrhoid. Patient referred for laboratory testing and CT images. Laboratory reveals a white blood cell count of 11, hematocrit 41, platelets 241. Chemistries reassuring, AST 43, ALT 29. CT of the abdomen and pelvis was obtained without contrast due to the patient's iodine allergy. This is without acute findings. Patient remained stable and improved. Case discussed over the phone with Dr. Turcios who agrees with outpatient follow-up in surgery clinic for probable colonoscopy. Patient informed as to return precautions. HPI General Mode of arrival: ambulatory . Date/Time Provider Initiated Documentation: 08/26/19 12:01 . Limitations to Documentation: no limitations . Information obtained by: patient . History of Present Illness 34 year old M presents to the emergency department with the chief complaint of Bright red blood per rectum and right lower quadrant abdominal pain today, described as moderate, Quality is described as dull and constant, and is localized to the abdomen and right. Patient reports no radiation. Patient started experiencing this hour(s) and it has been constant. No relieving factors improve symptom(s), No exacerbating factors reported . Patient notes no other symptoms.. Patient did receive the following treatments prior to arrival, none Related Data Allergies Allergy/AdvReac Type Severity Reaction Status Date / Time iodine Allergy Intermediate rash/swelli Unverified 08/26/19 12:06 ng codeine AdvReac Mild vomiting Unverified 08/26/19 12:06 General Stated Complaint: GI Bleed ANH: 2 Review of Systems Narrative: 6 systems reviewed and otherwise negative. [facility] Medical History Abnormal weight loss (Acute) Acute stress reaction (Acute) Blurred vision (Acute) Chronic abdominal pain (Acute) Hepatitis C antibody test positive (Acute) Lower back pain (Acute) Polysubstance abuse (Acute) Rectal bleeding (Acute) Sciatica (Acute) Social History Smoking/Tobacco Use Status: Current every day Tobacco Type: cigarettes Alcohol Intake: current Alcohol Intake frequency: holidays/special occasions only Drug use: Daily Substance use type: marijuana Do you feel safe at home: Yes Do you feel safe in your relationship?: Yes Exam Narrative Exam Narrative: GEN: awake, alert, oriented 3. Pleasant, well groomed, interactive. HEAD: Normocephalic, atraumatic ENT: Mucous membranes moist, oropharynx unremarkable, External ear exam unremarkable EYES: PERRL, EOMI NECK: Full ROM, no MICHI, no menigismus CHEST/RESP: Nontender, clear to auscultation bilateral, no wheeze/rhonchi/rales CARDIOVASCULAR: RRR, no murmur, rub spencer. 2+ Rad pulse bilateral ABDOMEN: Soft, tender in the right lower quadrant to palpation, no mass. +Bowel sounds. Rectal exam with trace bloody mucus that is guaiac positive, no mass. EXT: Full ROM, no edema, no rash Neuro: Grossly normal neurologic exam, conversant, interactive. Psych: Speech fluent, thoughts congruent, affect anxious Course Vital Signs Vital signs: Vital Signs Temperature 36.6 C 08/26/19 12:04 Pulse 75 08/26/19 12:04 Respiratory Rate 14 08/26/19 12:04 Blood Pressure 149/78 H 08/26/19 12:04 Pulse Oximetry 99 08/26/19 12:04 Temperature 36.6 C 08/26/19 12:04 Temperature Source Temporal Artery Scan 08/26/19 12:04 Pulse 75 08/26/19 12:04 Respiratory Rate 14 08/26/19 12:04 Respiratory Effort Non-Labored 08/26/19 12:05 Blood Pressure 149/78 H 08/26/19 12:04 Blood Pressure Position Sitting 08/26/19 12:04 Pulse Oximetry 99 08/26/19 12:04 Oxygen Delivery Method Room Air 08/26/19 12:04 Oxygen Flow Rate 0 08/26/19 12:04 Pain Level 7 08/26/19 12:04
[2019-08-26] MEDS: Normal Saline 1,000 ML 1000 ML IV (12:19)
[2019-08-26 12:28] LABS: Abs Immature Grans 0.02 k/cumm (0.0-0.09); Absolute Basophil Count 0.05 k/cumm (0.0-0.2); Absolute Eosinophil Count 0.11 k/cumm (0.0-0.7); Absolute Lymphocyte Count 2.79 k/cumm (1.2-3.4); Absolute Monocyte Count 0.69 k/cumm (0.11-0.7); Absolute Neutrophil Count 7.69 k/cumm (1.2-6.7); Basophils % 0.4; HCT 41.3 % (40.0-50.0); HGB 14.3 g/dL (13.5-17.5); Immature Grans % 0.2; Lymphocytes % 24.6; Mean Corp. HGB Concentration 34.6 g/dL (32.0-36.0); Mean Corpuscular Hemoglobin 30.9 pg (27.0-33.0); Mean Corpuscular Volume 89.2 fL (80-95); Mean Platelet Volume 10.3 fL (8.0-11.0); Monocytes % 6.1; Neutrophils % 67.7; Platelet Count 241 x1000/uL (130-400); RBC 4.63 m/cumm (4.50-6.00); RBC Distribution Width 12.7 % (11.8-14.1); White Blood Cell Count 11.36 k/cumm (4.4-10.8)
--- NOTE | 2019-08-26 12:35 | DI.CT_ITS ---
EXAM: CT ABDOMEN PELVIS WO CLINICAL HISTORY: RLQ pain, hematochezia, iodine allergy TECHNIQUE: Imaging Protocol: Axial computed tomography images with coronal and sagittal reformatted images were created and reviewed. COMPARISON: No exams were available for comparison FINDINGS: ABDOMEN: Lung Bases: Normal where visualized. Liver: Normal density. No measurable mass. Gallbladder and biliary tract: No radiodense calculus or dilation. Pancreas: Normal density, no abnormal calcifications or inflammatory process. Spleen: Normal. Kidneys: Normal size, contour and axis. No radiodense stones or obstructive uropathy. No masses seen. Adrenal glands: No masses seen. Lymph nodes: Within normal limits. Abdominal Aorta: Abdominal portion non-dilated. PELVIS: Bladder: Symmetric distention, no gross wall thickening. Bowel: No obstruction or bowel wall thickening. Normal appendix. Peritoneal cavity: No ascites, collection or mesenteric inflammatory response. Reproductive organs: Within normal limits. Bones: Within normal limits. IMPRESSION: Unremarkable CT scan of the abdomen and pelvis. The findings were discussed with the emergency department on the date of the examination. DATA REPOSITORY: All CT scans at this facility are submitted to the National Radiology Data Registry (NRDR) Dose Index Registry (DIR) with the [employer] ([employer]). RADIATION OPTIMIZATION: All CT scans at this facility use at least one of these dose optimization te chniques: automated exposure control; mA and/or kV adjustment per patient size (includes targeted exa ms where dose is matched to clinical indication); or iterative reconstruction.
[2019-08-26 12:39] LABS: Prothrombin Time 10.4 sec (9.3-11.0)
[2019-08-26 12:44] LABS: ALT 29 U/L (16-63); AST 43 U/L (15-37); Albumin 4.5 g/dL (3.4-5.0); Alkaline Phosphatase 64 U/L (46-116); Anion Gap 11.7 mmol/L (3-11); BUN 17 mg/dL (7-18); Bilirubin, Total 0.5 mg/dL (0.2-1.0); CO2 23.3 mmol/L (21.0-32.0); CREATININE 0.94 mg/dL (0.70-1.30); Calcium 9.5 mg/dL (8.5-10.1); Chloride 105 mmol/L (98-107); Glucose 96 mg/dL (74-106); Magnesium 1.8 mg/dL (1.8-2.4); Sodium 140 mmol/L (136-145); Total Protein 7.9 g/dL (6.4-8.2)
[2019-08-26 13:33] VITALS: BP 123/82; PULSE 71; RESP 20; TEMP 36.5; O2SAT 98
--- NOTE | 2019-08-26 15:41 | NUR.NOTE ---
Nursing Note: Referral to [facility] for follow up Jackelin Berger.
== END 2019-08-26 13:42 | disposition home or self-care (01) ==
PROVIDERS: Emergency Provider Emergency Medicine; PCP Nurse Practitioner Family
DX: K92.1 Melena (principal)
CPT/HCPCS: 80053; 96360; 99284; 74176; 83735; 85025; 85610; 85730

== ENCOUNTER 2019-11-05 08:55 | Emergency (ER) | payer MEDICAID, SELFPAY ==
[2019-11-05 08:58] VITALS: BP 128/90; PULSE 91; RESP 15; TEMP 36.4; O2SAT 100
--- NOTE | 2019-11-05 09:09 | W.ED.GENAD ---
Discharge Plan Disposition Patient Disposition: HOME Condition: Stable Discharge Details Chief Complaint: DentalOral Clinical Impression: Abscess, dental Primary Care Provider: Chadd Quigley ED Provider: Fatimah Parker Home Meds and New Rx's Prescriptions: New penicillin V potassium 500 mg tablet 500 mg PO QID Qty: 40 RF: 0 Continued naproxen sodium 220 mg tablet 220 mg PO BID Qty: 60 RF: 1 Discharge Instructions Instructions: Dental Abscess (ED) Additional Instructions: Ice to the cheek for swelling if needed. Use antibiotic as prescribed. Continue Naprosyn previously prescribed if needed with food. Warm salt water rinses after eating or drinking as discussed. Keep head of bed elevated if needed for comfort. Follow-up promptly with your dentist as discussed. Return for worsening, concerning or alarming symptoms sooner if needed Medical Decision Making Pleasant 34-year-old patient presenting for concern of dental pain for the last several weeks. History of many dental abscesses in the past. Patient reports he was able to drain area in the last few weeks however persistent dental pain. Patient requesting antibiotics. Declines any pain medication. Patient has a plan to call his dentist on Thursday. Patient has area of swelling which is evident over tooth #7 on the gumline with no obvious facial swelling associated. Consistent with early dental abscess. Will provide penicillin. Patient does report antibiotic induced diarrhea which was likely the result of several courses of antibiotics, and clindamycin. Patient denies any difficulty eating or drinking. Is sleeping without difficulty. No other concerns or complaints at this time. Will provide penicillin antibiotic and encourage dental follow-up as he plans on Thursday. Encouraged return for any worsening, alarming or concerning symptoms. Patient reports his understanding. The patient was stable and requested discharge. Prior to discharge, my usual and customary return precautions were reviewed with the patient - this included follow-up instructions and reasons to return to the Emergency Department if conditions worsens, does not improve as expected, or other new concerns arise. HPI General Date/Time Provider Initiated Documentation: 11/05/19 08:56. HPI Narrative: This is a pleasant 34-year-old patient presenting to the emergency room for dental pain in tooth #7 for the last several weeks. Patient reports he has had several dental infections. Patient reports this tooth seemed abscess which he was able to drain spontaneously however reports persistent pain at the site. Does have a plan to call dentist on Thursday. Patient has a known dental caries requiring extraction. Patient denies fever, chills, nausea, vomiting. No systemic symptoms. Eating and drinking without difficulty. No significant facial swelling. Patient does have an history of antibiotic-induced diarrhea when taking clindamycin. No voice change or trismus Related Data Home Medications Medication Instructions Recorded Confirmed naproxen sodium 220 mg tablet 220 mg PO BID #60 tab 10/18/19 11/05/19 penicillin V potassium 500 mg PO QID #40 tab 11/05/19 Previous Rx's Medication Instructions Recorded naproxen sodium 220 mg tablet 220 mg PO BID #60 tab 10/18/19 penicillin V potassium 500 mg PO QID #40 tab 11/05/19 Allergies Allergy/AdvReac Type Severity Reaction Status Date / Time iodine Allergy Intermediate rash/swelli Unverified 11/05/19 09:01 ng codeine AdvReac Mild vomiting Unverified 11/05/19 09:01 General Stated Complaint: DentalOral ANH: 5 Review of Systems All systems reviewed & are unremarkable except as noted in HPI and below Constitutional Constitutional: Denies chills, Denies fatigue, Denies fever(s), Denies headache(s) and Denies malaise ENT Ears, Nose, Mouth, and Throat: Denies bleeding gums, Reports dental pain, Denies headache(s), Denies nasal congestion, Denies sinus pain, Denies sinus pressure and Denies sore throat Respiratory Respiratory: Denies cough Integumentary/Breasts Skin/Breast: Denies erythema and Denies rash Neurologic Neurologic: Denies headache(s) Endocrine Endocrine: Denies fatigue [facility] Medical History Abnormal weight loss (Acute) Acute stress reaction (Acute) Blurred vision (Acute) Chronic abdominal pain (Acute) Hepatitis C antibody test positive (Acute) Lower back pain (Acute) Polysubstance abuse (Acute) Rectal bleeding (Acute) Sciatica (Acute) Scrotal pain (Acute) Social History Smoking/Tobacco Use Status: Current every day Tobacco Type: cigarettes Smoking packs per day: 0.5 Smoking cigarettes per day: 10.0 Alcohol Intake: current Alcohol Intake frequency: a few times a month Drug use: Daily Substance use type: marijuana Do you feel safe at home: Yes Do you feel safe in your relationship?: Yes Exam Narrative Exam Narrative: CONST: Healthy appearing patient, in no acute distress. Well hydrated. Alert and oriented. HENMT: Head nomocephalic, normal to inspection. Atraumatic. Hearing grossly normal. TMs appear normal bilaterally, no pharyngeal erythema. Patient with swelling of the gumline with small area consistent with abscess at tooth #7. No focal fluctuation. No facial swelling associated. Minimal tenderness. EYES: General normal appearance. Alignment normal. Eyelids normal. Conjunctiva normal. NECK: Normal visual inspection. FROM. Trachea midline. No Midline tenderness. Cervical lymphadenopathy present SKIN: Normal. Dry. No rashes. NEURO: Alert and awake. Speech clear. PSYCH: Normal affect. Cooperative. Course Vital Signs Vital signs: Vital Signs Temperature 36.4 C L 11/05/19 08:58 Pulse 91 H 11/05/19 08:58 Respiratory Rate 15 11/05/19 08:58 Blood Pressure 128/90 11/05/19 08:58 Pulse Oximetry 100 11/05/19 08:58 Temperature 36.4 C L 11/05/19 08:58 Temperature Source Temporal Artery Scan 11/05/19 08:58 Pulse 91 H 11/05/19 08:58 Respiratory Rate 15 11/05/19 08:58 Respiratory Effort Non-Labored 11/05/19 09:00 Blood Pressure 128/90 11/05/19 08:58 Pulse Oximetry 100 11/05/19 08:58 Oxygen Delivery Method Room Air 11/05/19 08:58 Oxygen Flow Rate 0 11/05/19 08:58 Pain Level 0 11/05/19 08:58
== END 2019-11-05 09:11 | disposition home or self-care (01) ==
PROVIDERS: Emergency Provider Physician Assistant; PCP Nurse Practitioner Family
DX: R68.84 Jaw pain (principal); K04.7 Periapical abscess without sinus
CPT/HCPCS: 99283

== ENCOUNTER 2022-07-10 14:49 | Emergency (ER) | payer MEDICAID, SELFPAY ==
[2022-07-10 14:58] VITALS: BP 129/90; PULSE 76; RESP 14; TEMP 36.8; O2SAT 100
--- NOTE | 2022-07-10 15:44 | W.ED.GENAD ---
Discharge Plan Disposition Patient Disposition: HOME Condition: Stable Discharge Details Chief Complaint: EyeProblem Clinical Impression: Acute foreign body of left cornea, Corneal abrasion Primary Care Provider: Chadd Bermudez ED Provider: Nabil Bermeo Discharge Instructions Instructions: Erythromycin (Into the eye), Corneal Abrasion (ED) Additional Instructions: Please use erythromycin eye ointment as discussed and reviewed. Apply 0.5 inch ribbon to left eye, 4 times a day, for the next 1 week. Please follow-up with [facility] eye clinic. Call to schedule a follow-up appointment today. Return to the ER immediately for any worsening or new concerning symptoms. Referrals: [facility] [Outside] Medical Decision Making 37yo male here with foreign body left eye. Tetracaine drops were applied and cornea examined with Rajput lamp and fluorescein staining. Small speck of gravel or dirt identified at 5:00 was removed with Q-tip. Patient has small corneal abrasion in the area. Erythromycin prophylactic antibiotic administered. Patient notes tetanus is up-to-date. Plan for outpatient follow-up with eye rn transitional care. Plan discussed with the patient and usual customary discharge instructions were reviewed. HPI General Mode of arrival: ambulatory. Date/Time Provider Initiated Documentation: 07/10/22 15:25. Limitations to Documentation: no limitations. Information obtained by: patient. HPI Narrative: 37-year-old male presents with chief complaint of concern for foreign body left eye. Patient notes he was working on a roof and wind blew debris into his face. He states about 3 hours later he noticed sensation of foreign body in his eye that was uncomfortable and moderate intensity. He flushed his eye with water and saline and continues to have discomfort. No visual changes. Related Data Allergies Allergy/AdvReac Type Severity Reaction Status Date / Time iodine Allergy Intermediate rash/swelli Unverified 07/10/22 15:04 ng codeine AdvReac Mild vomiting Unverified 07/10/22 15:04 General Stated Complaint: EyeProblem ANH: 4 Review of Systems Eyes Eyes: Reports as per HPI PFSH All Active Problems Abscess, dental (Acute) Acute foreign body of left cornea (Acute) Corneal abrasion (Acute) Scrotal pain (Acute) Medical History Abnormal weight loss Acute stress reaction Blurred vision Chronic abdominal pain Hepatitis C antibody test positive Lower back pain Polysubstance abuse Rectal bleeding Sciatica Social History Smoking/Tobacco Use Status: Current every day Tobacco Type: cigarettes Smoking packs per day: 0.5 Smoking cigarettes per day: 10.0 Smoking risk assessment performed?: Yes Alcohol Intake: current Alcohol Intake frequency: a few times a month Drug use: Daily Substance use type: marijuana Do you feel safe at home: Yes Do you feel safe in your relationship?: Yes Exam Const General: cooperative Orientation: alert Eyes Alignment and Position: alignment normal Periorbital: periorbital findings normal Eyelids: eyelids normal Conjunctivae: conjunctivae normal Sclera: sclerae normal Cornea: corneas abnormal on the left fluorescein used and foreign body other (speck of dirt 5:00); without a rust ring Pupils: PERRL EOM: EOM intact bilaterally Course Vital Signs Vital signs: Vital Signs Temperature 36.8 C 07/10/22 14:58 Pulse 76 07/10/22 14:58 Respiratory Rate 14 07/10/22 14:58 Blood Pressure 129/90 07/10/22 14:58 Pulse Oximetry 100 07/10/22 14:58 Temperature 36.8 C 07/10/22 14:58 Temperature Source Temporal Artery Scan 07/10/22 14:58 Pulse 76 07/10/22 14:58 Respiratory Rate 14 07/10/22 14:58 Blood Pressure 129/90 07/10/22 14:58 Blood Pressure Position Sitting 07/10/22 14:58 Pulse Oximetry 100 07/10/22 14:58 Oxygen Delivery Method Room Air 07/10/22 14:58 Oxygen Flow Rate 0 07/10/22 14:58 Procedures FB Removal Eye Time Out performed: Yes Location: eye (L) Topical anesthetic used: tetracaine Foreign body: other (gravel) Evidence of corneal penetration: No Technique: cotton tip swab Procedure performed under: direct visualization with magnification Post-procedure medication: ophthalmic antibiotic Patient tolerated procedure: well and no complications
[2022-07-10] MEDS: Fluorescein STRIPS 100/BOX 1 MG OP (15:47)
[2022-07-10] MEDS: Erythromycin Ophth Oint 3.5 GM TUBE OP (15:47)
[2022-07-10] MEDS: Balanced Salt Solution 15 ML BTL OP (15:47)
[2022-07-10] MEDS: Tetracaine 0.5% 4 ML BTL OP (15:47)
== END 2022-07-10 15:50 | disposition home or self-care (01) ==
PROVIDERS: Emergency Provider Student in an Organized Health Care Education/Training Program; PCP Nurse Practitioner Family
DX: T15.02XA Foreign body in cornea, left eye, initial encounter (principal); X58.XXXA Exposure to other specified factors, initial encounter
CPT/HCPCS: 99283

== ENCOUNTER 2022-07-23 16:30 | Emergency (ER) | payer MEDICAID, SELFPAY ==
[2022-07-23 16:50] VITALS: BP 142/84; PULSE 75; RESP 20; TEMP 36.5; O2SAT 98
--- NOTE | 2022-07-23 18:00 | DI.RAD_ITS ---
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 TECHNIQUE: 2D digital imaging was performed of the right hand. Three images were obtained. AP, late ral and oblique views were obtained. COMPARISON: No exams were available for comparison FINDINGS: BONES: No acute fracture is present. No bony destructive lesion is seen. There is a chronic deformity of the proximal phalanx of the 2nd finger. JOINTS: No dislocation present. SOFT TISSUE: Normal. IMPRESSION: No acute abnormality. DATA REPOSITORY: RADIATION DOSE DELIVERED:
--- NOTE | 2022-07-23 18:56 | DI.VRAD_ITS ---
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 Views: 3 or more views. COMPARISON: No relevant prior studies available. FINDINGS: Bones/joints: Chronic deformity of the proximal 2nd phalanx. No acute fracture or dislocation. There is no erosive changes noted core periostitis Soft tissues: No significant swelling IMPRESSION: No acute findings. Dictated and Authenticated by: Sancho Hess MD. Ordering:KEIKO Salcido MD
--- NOTE | 2022-07-23 19:03 | ED.GENADUL_ITS ---
Discharge Plan Disposition Patient Disposition: HOME Condition: Stable Discharge Details Clinical Impression: Hand swelling Primary Care Provider: Irvin Quigley RN,Chadd ED Provider: Loly Dumont Discharge Instructions Additional Instructions: Compressive wrap around her hand to decrease swelling overnight Ibuprofen 600 mg every 8 hours with food to decrease swelling Repeat assessment in 48 hours with persistent swelling, elevate is much as possible, apply ice Return earlier should he have new or worsening complaints Discharge Data Discharge Date/Time-TO BE ENTERED AT DEPARTURE: 07/23/22 19:17 Medical Decision Making xray without acute abnormality per radiology interpretation my review Da wrap applied for compression Return precautions discussed and patient expressed understanding Medical Records Medical records reviewed: Yes I reviewed the patient's medical records. Lab Data Lab results reviewed: Yes I reviewed the patient's lab results. HPI General Date/Time Provider Initiated Documentation: 07/23/22 17:55 . HPI Narrative: This 37-year-old male Related Data Allergies Allergy/AdvReac Type Severity Reaction Status Date / Time iodine Allergy Intermediate rash/swelli Unverified 07/10/22 15:04 ng codeine AdvReac Mild vomiting Unverified 07/10/22 15:04 General Stated Complaint: Orthopedic ANH: 4 Review of Systems All systems reviewed & are unremarkable except as noted in HPI and below PFSH All Active Problems (Updated 07/23/22 @ 19:04 by LYDIA Bowles) Abscess, dental (Acute) Acute foreign body of left cornea (Acute) Corneal abrasion (Acute) Hand swelling (Acute) Scrotal pain (Acute) Medical History (Updated 07/23/22 @ 19:04 by LYDIA Bowles) Abnormal weight loss Acute stress reaction Blurred vision Chronic abdominal pain Hepatitis C antibody test positive Lower back pain Polysubstance abuse Rectal bleeding Sciatica Social History Smoking/Tobacco Use Status: Current every day Tobacco Type: cigarettes Smoking packs per day: 0.5 Smoking cigarettes per day: 10.0 Smoking risk assessment performed?: Yes Alcohol Intake: current Alcohol Intake frequency: a few times a month Drug use: Daily Substance use type: former substance user and marijuana Do you feel safe at home: Yes Do you feel safe in your relationship?: Yes Exam Const General: cooperative Orientation: alert and oriented x3 Skin General skin exam: no rashes or lesions noted Neuro General: patient alert Extrem Other: right hand swelling and tenderness, dorsal tenderness and swelling Course Vital Signs Vital signs: Vital Signs Temperature 36.5 C 07/23/22 16:50 Pulse 75 07/23/22 16:50 Respiratory Rate 20 07/23/22 16:50 Blood Pressure 142/84 H 07/23/22 16:50 Pulse Oximetry 98 07/23/22 16:50 Temperature 36.5 C 07/23/22 16:50 Temperature Source Tympanic 07/23/22 16:50 Pulse 75 07/23/22 16:50 Respiratory Rate 20 07/23/22 16:50 Respiratory Effort 07/23/22 18:49 Blood Pressure 142/84 H 07/23/22 16:50 Blood Pressure Position Sitting 07/23/22 16:50 Pulse Oximetry 98 07/23/22 16:50 Oxygen Delivery Method Room Air 07/23/22 16:50 Oxygen Flow Rate 0 07/23/22 16:50 Pain Level 4 07/23/22 16:50
== END 2022-07-23 19:17 | disposition home or self-care (01) ==
PROVIDERS: Emergency Provider Physician Assistant
DX: R22.31 Localized swelling, mass and lump, right upper limb (principal); M79.641 Pain in right hand
CPT/HCPCS: 99283; 73130; 99282

== ENCOUNTER 2022-09-03 10:57 | Outpatient (REF) | payer MEDICAID, SELFPAY ==
[2022-09-03 15:13] LABS: Abs Immature Grans 0.02 10^3/uL (0.0-0.06); Absolute Basophil Count 0.07 10^3/uL (0.0-0.2); Absolute Eosinophil Count 0.08 10^3/uL (0.0-0.7); Absolute Monocyte Count 0.45 10^3/uL (0.1-0.8); Basophils % 0.8; Eosinophils % 0.9; HCT 45.6 % (40.0-50.0); HGB 15.3 g/dL (13.5-17.5); Immature Grans % 0.2; Lymphocytes % 31.3; MCH 30.5 pg (27.0-33.0); MCHC 33.6 % (32.0-36.0); MCV 91 fL (80-95); MPV 10.7 fL (8.0-11.0); Monocytes % 5.2; Neutrophils % 61.6; Platelet Count 310 10^3/uL (130-400); RBC 5.02 10^6/uL (4.36-5.78); RDW 12.5 % (11.8-14.1); RDW-SD 41.2 fL; WBC 8.62 10^3/uL (4.4-10.8)
[2022-09-03 16:36] LABS: ALT 21 U/L (16-63); AST 33 U/L (15-37); Albumin 4.3 g/dL (3.4-5.0); Alkaline Phosphatase 87 U/L (46-116); Anion Gap 6.9 mmol/L (3-11); BUN 17 mg/dL (7-18); Bilirubin, Total 0.5 mg/dL (0.2-1.0); CO2 28.1 mmol/L (21.0-32.0); CREATININE 1.1 mg/dL (0.70-1.30); Calcium 9.8 mg/dL (8.5-10.1); Chloride 103 mmol/L (98-107); Estimated GFR 87.57 (mL/min/1.73m2); Glucose 97 mg/dL (74-106); Potassium 4.5 mmol/L (3.5-5.1); Sodium 138 mmol/L (136-145); TSH (W/Ref FT4) 0.78 uIU/mL (0.36-3.74); Total Protein 7.8 g/dL (6.4-8.2)
[2022-09-03 16:49] LABS: Calculated LDL 145 mg/dL (<100); Cholesterol 220 mg/dL (<200); HDL Cholesterol 63 mg/dL (40-60); Triglyceride 63 mg/dL (<150)
[2022-09-04 08:48] LABS: HBs Antibody, Quant 203.7 mIU/mL (See Note); Hepatitis B Surface Ab Positive (See Note)
[2022-09-04 09:35] LABS: Hep A Total Ab w Rflx IgM Negative (Negative)
[2022-09-04 09:39] LABS: HIV-1/2 Ag & Ab Screen Negative (Negative)
[2022-09-04 09:40] LABS: Hepatitis B Surface Ag Negative (Negative)
[2022-09-04 09:49] LABS: Syphilis Serology (RPR) Negative (Negative)
[2022-09-04 10:05] LABS: Hepatitis C Ab w Rflx HCV PCR Reactive (Negative)
[2022-09-05 11:16] LABS: HCV RNA Qualitative Undetected (Undetected)
== END 2022-09-03 10:58 | disposition home or self-care (01) ==
LOC: NCHCN 10:57
PROVIDERS: Visit Provider Nurse Practitioner Family
DX: R10.9 Unspecified abdominal pain (principal); F11.21 Opioid dependence, in remission; R76.0 Raised antibody titer; F17.210 Nicotine dependence, cigarettes, uncomplicated; Z11.4 Encounter for screening for human immunodeficiency virus [HIV]; Z11.3 Encounter for screening for infections with a predominantly sexual mode of transmission; E78.00 Pure hypercholesterolemia, unspecified
CPT/HCPCS: 80053; 80061; 86706; 86709; 86803; 87340; 87389; 87522; 84443; 85025; 86592

== ENCOUNTER 2022-12-15 02:45 | Emergency (ER) | payer MEDICAID, SELFPAY ==
[2022-12-15 01:44] VITALS: BP 116/87; PULSE 110; RESP 16; TEMP 37.4; O2SAT 97
--- NOTE | 2022-12-15 02:00 | DI.CT_ITS ---
Exam(s) CT ABDOMEN PELVIS WO EXAM: CT ABDOMEN PELVIS WO CLINICAL HISTORY: right flank pain. TECHNIQUE: Imaging Protocol: Axial computed tomography images with coronal and sagittal reformatted images were created and reviewed CONTRAST MATERIAL: Intravenous: none Oral: None COMPARISON: CT CT ABDOMEN PELVIS WO from 08/26/2019 FINDINGS: VISUALIZED LUNG BASES: There is an unchanged 4 millimeter nodule in the lateral basal segment of the right lower lobe, unchanged from 2019 and therefore benign. There is also a similar size unchanged n odule in the lateral basal segment left lower, also unchanged from 2019 and therefore benign. There increased markings in the dependent aspects of both lower lobes-posterior basal segments. No associa trent pleural effusions.. ABDOMEN: There is no ascites. No free air. Multiple similar appearing densities are noted in the region the fundus of the stomach which are probably ingested tablets. Other similar finding seen in the duodenu m. No bowel obstruction. LIVER: There are no obvious focal hepatic lesions evident of this noninfused study. GALLBLADDER/BILIARY: No obvious gallbladder pathology. CBD is not dilated. PANCREAS: No evidence of pancreatic mass nor dilatation of the pancreatic duct. SPLEEN: Spleen is not enlarged. No obvious intrasplenic lesions. ADRENALS: There are no significant adrenal masses. KIDNEYS:No cysts evident. No solid renal masses. No calculi nor hydronephrosis. . ABDOMINAL AORTA: Abdominal aorta is not enlarged. LYMPH NODES: There is no retroperitoneal nor paraaortic adenopathy. ABDOMINAL WALL: No evidence of significant anterior abdominal wall nor inguinal hernia. GI: There is no evidence of bowel obstruction, free air, nor abscess. PELVIS: LYMPH NODES: There is no intrapelvic nor inguinal adenopathy. GI: No evidence of appendicitis.No evidence of sigmoid diverticulitis. URINARY BLADDER: No calculi nor obvious masses evident REPRODUCTIVE: Prostate not enlarged. OSSEOUS: No significant osseous lesions. No fractures. Multilevel degenerative disc space narrowing, most prominent at L2-3 level. IMPRESSION: 1. Multiple similar appearing densities in the stomach and duodenum which are probably ingested table ts. 2. No evidence of bowel obstruction or other significant focal findings in the abdomen and pelvis. 3. There is no ascites RADIATION DOSE DELIVERED: 671.85mGy.cm Total DLP DATA REPOSITORY: All CT scans at this facility are submitted to the National Radiology Data Registry (NRDR) Dose Index Registry (DIR) with the [employer] (A[employer]). RADIATION OPTIMIZATION: All CT scans at this facility use at least one of these dose optimization te chniques: automated exposure control; mA and/or kV adjustment per patient size (includes targeted exa ms where dose is matched to clinical indication); or iterative reconstruction.
--- NOTE | 2022-12-15 02:04 | ED.GENADUL_ITS ---
Discharge Plan Disposition Patient Disposition: Home Discharge Details Clinical Impression: Back pain Primary Care Provider: Irvin Quigley RN,Chadd ED Provider: Ryan Sanchez Home Meds and New Rx's Prescriptions: New lidocaine [Lidoderm] 5 % adhesive patch,medicated 1 patch topical DAILY Qty: 15 0RF Rx Instructions: leave on most painful area for up to 12 hrs cyclobenzaprine 5 mg tablet 5 mg PO QHS PRN (Reason: muscle spasm) Qty: 10 0RF No Action aspirin 325 mg Tablet 325 mg PO BID Discharge Instructions Instructions: Back Pain (ED) Additional Instructions: Please follow-up with your primary care physician. Medical Decision Making 37-year-old male presents with right lower back and flank discomfort of the past 3 days. Afebrile, tachycardic on arrival, appears uncomfortable, no midline spinal tenderness no signs of trauma. Point tenderness over thoracolumbar region right side. Consider renal colic, lower suspicion for pyelonephritis, muscles consider musculoskeletal discomfort such as paraspinal muscle spasm. Low suspicion for spinal cord injury or aortic pathology. Screening labs imaging analgesia anti-inflammatory 3: 20 patient resting comfortably no acute distress. Likely musculoskeletal in nature; patient denies recent ingestion or recent imaging. HPI General Date/Time Provider Initiated Documentation: 12/15/22 03:17 . HPI Narrative: 37-year-old male presents with right flank pain over the past 3 days. Denies urinary symptoms. Denies history of kidney stones. Related Data Home Medications Medication Instructions Recorded Confirmed aspirin 325 mg tablet 325 mg PO BID 12/15/22 12/15/22 cyclobenzaprine 5 mg tablet 5 mg PO QHS PRN muscle spasm #10 12/15/22 tabs lidocaine 5 % topical patch 1 patch topical DAILY #15 ea 12/15/22 (Lidoderm) Previous Rx's Medication Instructions Recorded cyclobenzaprine 5 mg tablet 5 mg PO QHS PRN muscle spasm #10 12/15/22 tabs lidocaine 5 % topical patch 1 patch topical DAILY #15 ea 12/15/22 (Lidoderm) Allergies Allergy/AdvReac Type Severity Reaction Status Date / Time iodine Allergy Intermediate rash/swelli Unverified 12/15/22 01:56 ng codeine AdvReac Mild vomiting Unverified 12/15/22 01:56 General Stated Complaint: Abd Prob ANH: 3 Review of Systems Narrative: Review of Systems Constitutional: negative Eyes: negative ENT: negative Cardiovascular: negative Respiratory: negative Gastrointestinal: negative : negative Musculoskeletal: Flank pain Skin: negative Neurologic: negative Psych: negative PFSH All Active Problems (Updated 12/15/22 @ 03:22 by Ryan Sanchez MD) Abscess, dental (Acute) Back pain (Acute) Scrotal pain (Acute) Medical History (Updated 12/15/22 @ 03:22 by Ryan Sanchez MD) Abnormal weight loss Acute stress reaction Blurred vision Chronic abdominal pain Hepatitis C antibody test positive Lower back pain Polysubstance abuse Rectal bleeding Sciatica Social History Smoking/Tobacco Use Status: Current every day Tobacco Type: cigarettes Smoking packs per day: 0.5 Smoking cigarettes per day: 10.0 Smoking risk assessment performed?: Yes Alcohol Intake: current Alcohol Intake frequency: a few times a month Drug use: Daily Substance use type: former substance user and marijuana Do you feel safe at home: Yes Do you feel safe in your relationship?: Yes Exam Narrative Exam Narrative: Physical Examination General: alert, awake, cooperative, appears uncomfortable HEENT: normocephalic, atraumatic; PERRL, EOM intact, conjunctiva normal; no nasal discharge; moist mucous membranes, oral and pharyngeal mucosa normal, tolerating secretions Neck: supple, trachea midline; full ROM Chest: normal to inspection Respiratory: normal respiratory effort, speaking in full sentences, clear to auscultation, no wheezing, rales or rhonchi Cardiac: regular rate, regular rhythm, S1S2 intact, no murmurs rubs or gallops GI: abdomen soft, non-tender, non-distended; no palpable mass or hepatosplenomegaly Back: Point tenderness over right paraspinal lower thoracic or lumbar region Skin: no lesions, rashes or trauma appreciated Neuro: AAOx3, normal speech, moving all extremities Psych: Appropriate mood and affect Course Vital Signs Vital signs: Vital Signs Temperature 37.4 C 12/15/22 01:44 Pulse 110 H 12/15/22 01:44 Respiratory Rate 16 12/15/22 01:44 Blood Pressure 116/87 12/15/22 01:44 Pulse Oximetry 97 12/15/22 01:44 Temperature 37.4 C 12/15/22 01:44 Temperature Source Temporal Artery Scan 04/03/23 01:44 Pulse 110 H 12/15/22 01:44 Respiratory Rate 16 12/15/22 01:44 Respiratory Effort Normal 12/15/22 01:44 Blood Pressure 116/87 12/15/22 01:44 Blood Pressure Position Sitting 12/15/22 01:44 Pulse Oximetry 97 12/15/22 01:44 Pain Level 6 12/15/22 01:44
[2022-12-15] MEDS: Normal Saline 500 ML 1000 ML IV (02:11)
[2022-12-15] MEDS: Ketorolac 15 MG/ML VIAL IVP (02:12)
[2022-12-15] MEDS: LORazepam 2 MG/ML VIAL 1 MG IVP (02:12)
[2022-12-15 02:15] LABS: Bilirubin Negative (Negative); Blood Negative (Negative); Clarity Clear (Clear); Glucose Negative (Negative); Ketones Negative (Negative); Leukocyte Esterase Negative (Negative); Nitrite Negative (Negative); Specific Gravity >= 1.030 (1.005-1.025); Urobilinogen 0.2 mg/dL (Up to 0.2)
[2022-12-15 02:16] LABS: Abs Immature Grans 0.09 10^3/uL (0.0-0.06); Absolute Basophil Count 0.09 10^3/uL (0.0-0.2); Absolute Monocyte Count 1.25 10^3/uL (0.1-0.8); Basophils % 0.5; Eosinophils % 0.8; HCT 42.5 % (40.0-50.0); HGB 14.3 g/dL (13.5-17.5); Immature Grans % 0.5; Lymphocytes % 18.1; MCH 30.8 pg (27.0-33.0); MCHC 33.6 % (32.0-36.0); MCV 92 fL (80-95); MPV 10.4 fL (8.0-11.0); Monocytes % 7.3; Neutrophils % 72.8; Platelet Count 241 10^3/uL (130-400); RBC 4.64 10^6/uL (4.36-5.78); RDW 12.9 % (11.8-14.1); WBC 17.14 10^3/uL (4.4-10.8)
[2022-12-15 02:19] LABS: Absolute Eosinophil Count 0.14 10^3/uL (0.0-0.7); Absolute Neutrophil Count 12.48 10^3/uL (1.2-6.7)
--- NOTE | 2022-12-15 03:14 | DI.VRAD_ITS ---
PROCEDURE INFORMATION: Exam: CT Abdomen And Pelvis Without Contrast Exam date and time: 12/15/2022 2:23 AM Age: 37 years old Clinical indication: Other: Right flank pain TECHNIQUE: Imaging protocol: Computed tomography of the abdomen and pelvis without contrast. Radiation optimization: All CT scans at this facility use at least one of these dose optimization techniques: automated exposure control; mA and/or kV adjustment per patient size (includes targeted exams where dose is matched to clinical indication); or iterative reconstruction. COMPARISON: CT ABDOMEN PELVIS WO 08/26/2019 12:35 PM FINDINGS: Liver: Normal. No mass. Gallbladder and bile ducts: Normal. No calcified stones. No ductal dilation. Pancreas: Normal. No ductal dilation. Spleen: Normal. No splenomegaly. Adrenal glands: Normal. No mass. Kidneys and ureters: Normal. No hydronephrosis. Stomach and bowel: Numerous high attenuation foci in the stomach and bowel compatible with ingested tablets. No evidence of bowel obstruction. No mucosal thickening. Appendix: Normal appendix. Intraperitoneal space: Unremarkable. No free air. No significant fluid collection. Vasculature: Unremarkable. No abdominal aortic aneurysm. Lymph nodes: Unremarkable. No enlarged lymph nodes. Urinary bladder: Unremarkable as visualized. Reproductive: Unremarkable as visualized. Bones/joints: Degenerative disc disease of the lumbar spine. No acute fracture. Soft tissues: Unremarkable. IMPRESSION: 1. No acute findings. 2. Numerous suspected ingested tablets. Correlate clinically. Dictated and Authenticated by: Colin Chiang MD. Ordering:FRANK Davis MD
[2022-12-15] MEDS: Cyclobenzaprine 10 MG TAB PO (03:28)
[2022-12-15] MEDS: Lidocaine 5% Patch 1 PATCH TP (03:29)
[2022-12-15 03:32] LABS: ALT 23 U/L (16-63); AST 21 U/L (15-37); Albumin 3.7 g/dL (3.4-5.0); Alkaline Phosphatase 88 U/L (46-116); BUN 16 mg/dL (7-18); Bilirubin, Total 0.3 mg/dL (0.2-1.0); CREATININE 1.2 mg/dL (0.70-1.30); Chloride 105 mmol/L (98-107); Estimated GFR 78.89 (mL/min/1.73m2); Glucose 98 mg/dL (74-106); Potassium 3.6 mmol/L (3.5-5.1); Sodium 142 mmol/L (136-145); Total Protein 7.1 g/dL (6.4-8.2)
[2022-12-15 03:47] VITALS: BP 129/73; PULSE 58; RESP 16; TEMP 37.4; O2SAT 100
== END 2022-12-15 03:56 | disposition home or self-care (01) ==
PROVIDERS: Emergency Provider Emergency Medicine
DX: M54.50 Low back pain, unspecified (principal); R10.9 Unspecified abdominal pain; R00.0 Tachycardia, unspecified
CPT/HCPCS: 80053; 96361; 96374; 96375; 99284; 74176; 81003; 85025; J1885; J2060

== ENCOUNTER 2024-07-17 08:13 | Emergency (ER) | payer MEDICAID, SELFPAY ==
[2024-07-17] VITALS (13 sets, daily range): BP systolic 120–133; BP diastolic 85–96; PULSE 57–74; RESP 11–18; TEMP 36.6; O2SAT 98–100
--- NOTE | 2024-07-17 07:45 | RT.EKG_ITS ---
APPROVED REPORT Exam: Resting ECG Reason for Exam: chest pain Patient Location: E HR:56 bpm ECG Measurements Heart Rate 56 AXIS NV 131 P 73 QRSd 101 QRS 97 QT 436 T 52 QTc 420 Conclusion Sinus bradycardia, rate 56 No interval abnormalities No ectopy No STEMI
--- NOTE | 2024-07-17 08:06 | W.ED.GENAD ---
Discharge Plan Disposition Patient Disposition: Home Condition: Stable Discharge Details Clinical Impression: Chest pain of unknown etiology, Dental caries noted on examination Primary Care Provider: Irvin Quigley RN,Chadd ED Provider: Ida Mason Home Meds and New Rx's Prescriptions: New amoxicillin-pot clavulanate 875-125 mg tablet 1 tab PO BID 6 Days Qty: 12 0RF No Action aspirin 325 mg Tablet 325 mg PO BID buprenorphine-naloxone [Suboxone] 8-2 mg film 1 film sublingual DAILY Patient Comments: attempting to taper Discharge Instructions Instructions: Chest Pain, Adult ED Additional Instructions: You were seen in the emergency department today for evaluation of chest pain. In our department you had a full physical examination performed, had laboratory studies that were reassuring and does not show any sign of damage to your heart. You had an x-ray that was normal, and your chest pain improved over the course of your time in the emergency department. Additionally, you had some evidence of dental carry disease, for which we are starting you on antibiotics. You need to follow-up with your dentist, and make an appointment as soon as possible for evaluation and potential extraction. You also need to contact your primary care provider and schedule a visit for reassessment to discuss this emergency department visit and any other symptoms that change, worsen, or persist. While taking antibiotics we do recommend that you either take probiotics or eat yogurt to avoid diarrhea and GI upset. You can also utilize Tylenol or ibuprofen for management of pain. Please continue all of your medications as prescribed, and thank you for allowing us to be part of your care. HPI General Mode of arrival: EMS. Date/Time Provider Initiated Documentation: 07/17/24 08:44. Limitations to Documentation: no limitations. Information obtained by: patient, EMS and old records reviewed. HPI Narrative: HPI: This is a 39-year-old male patient with a past medical history significant for polysubstance use disorder in remission, history of poor dentition, and a family history of early cardiac disease who is presenting for evaluation of 3 days of chest pain. The patient reports that he began to feel this pain in the center of his chest, it occasionally radiates to his back. The patient endorses that the pain is worse with movement, supine positioning, and deep breath. He has not had pain like this in the past. Denies shortness of breath, leg swelling, cough, or recent fever. He was given aspirin by EMS, nitroglycerin which slightly improved his pain but did not resolve it, and had a nonischemic EKG. The patient also reports that he struggling with a dental abscess, states that he has a history of very poor dentition and needs to get his teeth extracted. He has not yet been able to schedule with a dentist for this procedure. States that he is still able to maintain his p.o. intake despite sensitivity and dental pain. Tries to avoid [id number] medications for pain management Exam: Gen: Awake and alert, in no apparent distress HEENT: Non-icteric sclera, conjunctiva noninjected. The patient has poor dentition with generalized dental carry disease, no appreciable apical abscesses, no facial swelling, no mandibular floor swelling Neck: Supple, full range of motion Lungs: No apparent respiratory distress, normal respiratory effort. Lung sounds clear and equal b/l CV: Appears well perfused, heart with bradycardic rate and regular rhythm, no murmurs auscultated Abdomen: Non-distended, soft MSK: Moves 4 extremities without apparent limitation in ROM, no peripheral edema, no unilateral calf swelling or tenderness Skin: Visualized skin without rashes, cyanosis. Neuro: Normal Gait, no obvious focal deficits or facial asymmetry. Speaks in full, clear sentences. Psych: Appropriate for situation. MDM: This is a 39-year-old male patient presenting for evaluation of 3 days of chest pain. My differential includes but is not limited to ACS including STEMI, NSTEMI, unstable angina, certainly considered pericarditis and myocarditis. I considered aortic disease that this patient reassuringly has no pulse deficits, severe hypertension, or neurological deficits. I considered endocarditis in this patient given his remote history of IVDU, though he is reassuringly without fever, murmur, or secondary skin findings. I considered pneumonia, pulmonary edema, pleural effusion, pneumothorax. Considered costochondritis, pleurisy, chest wall pain. I considered pulmonary embolism though this patient is low risk and does meet PERC criteria for rule out. I am reassured by his hemodynamic stability, and obtained an EKG which shows no evidence of ischemia, interval abnormality, or ectopy. We will obtain laboratory studies to include CBC, CMP, troponin, and obtain the chest x-ray. ED Course: I independently interpreted the laboratory studies, which show no significant leukocytosis, anemia, or thrombocytopenia. The chemistry panel is without evidence of electrolyte abnormality, kidney dysfunction, or liver injury. Troponin was undetectable, and by our high-sensitivity troponin protocol this patient does not require delta troponin. Independently interpreted the patient's x-ray image, which shows no evidence of abnormalities which might account for his symptoms. On reassessment the patient reports that his pain is significantly improved and he feels reassured by the laboratory evaluation. I did provide him with a course of antibiosis for his dental disease, and the patient will contact his dentist and his primary care provider to schedule follow-up visits. I recommended Tylenol and ibuprofen for management of any ongoing symptoms. At this time, the patient has had a full medical evaluation and is safe for discharge to home. They are hemodynamically stable, ambulatory, and tolerating PO. They are understanding of the follow-up plan and return precautions. They left our facility without incident. Ida Mason MD Related Data Home Medications ?Medication ?Instructions ?Recorded ?Confirmed aspirin 325 mg tablet 325 mg PO BID 12/15/22 07/17/24 amoxicillin 875 mg-potassium 1 tab PO BID 6 days #12 tabs 07/17/24 clavulanate 125 mg tablet buprenorphine 8 mg-naloxone 2 mg 1 film sublingual DAILY 07/17/24 07/17/24 sublingual film (Suboxone) Previous Rx's ?Medication ?Instructions ?Recorded amoxicillin 875 mg-potassium 1 tab PO BID 6 days #12 tabs 07/17/24 clavulanate 125 mg tablet Allergies Allergy/AdvReac Type Severity Reaction Status Date / Time iodine Allergy Severe Anaphylaxis Unverified 07/17/24 08:03 codeine AdvReac Mild vomiting Unverified 12/15/22 01:56 General Stated Complaint: Chest Pain ANH: 2 Course Vital Signs Vital signs: Vital Signs Temperature 36.6 C 07/17/24 08:00 Pulse 59 L 07/17/24 08:00 Respiratory Rate 16 07/17/24 08:00 Blood Pressure 133/96 H 07/17/24 08:00 Pulse Oximetry 99 07/17/24 08:00 Temperature 36.6 C 07/17/24 08:00 Temperature Source Oral 07/17/24 08:00 Pulse 59 L 07/17/24 08:00 Respiratory Rate 16 07/17/24 08:00 Respiratory Effort Normal, Non-Labored 07/17/24 08:03 Blood Pressure 133/96 H 07/17/24 08:00 Blood Pressure Position Supine 07/17/24 08:00 Pulse Oximetry 99 07/17/24 08:00 Oxygen Delivery Method Room Air 07/17/24 08:00 Oxygen Flow Rate 0 07/17/24 08:00 Pain Level 5 07/17/24 08:00 Comment ngt/asa NEWS [employer] 07/17/24 08:00 Medical Decision Making Quality:SDOH Health Related Social Needs: No Data to Display PFSH All Active Problems (Updated 07/17/24 @ 08:56 by Ida Mason MD) Dental caries noted on examination (Acute) Chest pain of unknown etiology (Acute) Abscess, dental (Acute) Scrotal pain (Acute) Medical History (Updated 07/17/24 @ 08:56 by Ida Mason MD) Chronic abdominal pain Polysubstance abuse Lower back pain Sciatica Hepatitis C antibody test positive Acute stress reaction Blurred vision Rectal bleeding Abnormal weight loss Social History Smoking/Tobacco Use Status: Current every day Tobacco Type: cigarettes Smoking packs per day: 0.5 Smoking cigarettes per day: 10.0 Smoking risk assessment performed?: Yes Alcohol Intake: current Alcohol Intake frequency: a few times a month Alcohol type: beer Drug use: Daily Substance use type: former substance user and marijuana Details: on suboxone, attempting to cut down Housing: apartment Do you feel safe at home: Yes Do you feel safe in your relationship?: Yes
[2024-07-17 08:19] LABS: Abs Immature Grans 0.05 10^3/uL (0.0-0.06); Absolute Basophil Count 0.07 10^3/uL (0.0-0.2); Absolute Eosinophil Count 0.31 10^3/uL (0.0-0.7); Absolute Lymphocyte Count 3.06 10^3/uL (1.2-3.4); Absolute Monocyte Count 0.72 10^3/uL (0.1-0.8); Basophils % 0.6 %; Eosinophils % 2.7 %; HCT 43.7 % (40.0-50.0); HGB 14.5 g/dL (13.5-17.5); Immature Grans % 0.4 %; Lymphocytes % 26.4 %; MCHC 33.2 % (32.0-36.0); MCV 91 fL (80-95); MPV 10.1 fL (8.0-11.0); Monocytes % 6.2 %; Neutrophils % 63.7 %; Platelet Count 216 10^3/uL (130-400); RBC 4.83 10^6/uL (4.36-5.78); WBC 11.58 10^3/uL (4.4-10.8)
[2024-07-17 08:20] LABS: Absolute Neutrophil Count 7.38 10^3/uL (1.2-6.7)
--- NOTE | 2024-07-17 08:29 | DI.RAD_ITS ---
Exam(s) XR CHEST 2V PA LATERAL EXAM: XR CHEST 2V PA LATERAL CLINICAL HISTORY: CP TECHNIQUE: 2D digital imaging was performed. Two views. COMPARISON: CR ABD FLAT UPRIGHT PA CHEST from 12/02/2013 FINDINGS: HEART: Normal size. Aorta: Not dilated. PULMONARY VASCULATURE: Normal. MEDIASTINUM: Unremarkable. LUNGS: Clear. PLEURAL SPACE: No pleural effusion or pneumothorax. BONE:Unremarkable for age. SOFT TISSUES: Unremarkable. IMPRESSION: No acute abnormality. DATA REPOSITORY: RADIATION DOSE DELIVERED:
[2024-07-17 08:34] LABS: ALT 22 U/L (16-63); AST 23 U/L (15-37); Albumin 3.9 g/dL (3.4-5.0); Alkaline Phosphatase 105 U/L (46-116); BUN 20 mg/dL (7-18); Bilirubin, Total 0.28 mg/dL (0.2-1.0); Calcium 9.4 mg/dL (8.5-10.1); Chloride 106 mmol/L (98-107); Estimated GFR 96.97 (mL/min/1.73m2); Glucose 105 mg/dL (74-106); Magnesium 2.2 mg/dL (1.8-2.4); Potassium 4.2 mmol/L (3.5-5.1); Sodium 144 mmol/L (136-145); Total Protein 7.4 g/dL (6.4-8.2)
[2024-07-17 08:38] LABS: Troponin I < 4 ng/L (<or=76)
[2024-07-17] MEDS: Amox. 875/Clav. 125, 2 TABS/BTL 1 TAB PO (09:33)
--- NOTE | 2024-07-17 10:11 | DI.VRAD_ITS ---
PROCEDURE INFORMATION: Exam: XR Chest Exam date and time: 07/17/2024 8:29 AM Age: 39 years old Clinical indication: Other: Chest pain TECHNIQUE: Imaging protocol: Radiologic exam of the chest. Views: 2 views. COMPARISON: CT ABDOMEN PELVIS WO 12/15/2022 2:23 AM FINDINGS: Lungs: Unremarkable. No consolidation. Pleural spaces: Unremarkable. No pleural effusion. No pneumothorax. Heart/Mediastinum: Unremarkable. No cardiomegaly. Bones/joints: Unremarkable. IMPRESSION: No acute cardiopulmonary process. Dictated and Authenticated by: Mason Crenshaw MD. Ordering:JENNIFER Bowman MD
== END 2024-07-17 09:35 | disposition home or self-care (01) ==
LOC: ER 10:30
PROVIDERS: Emergency Provider Emergency Medicine
DX: R07.9 Chest pain, unspecified (principal); K02.9 Dental caries, unspecified; F17.210 Nicotine dependence, cigarettes, uncomplicated; Z79.82 Long term (current) use of aspirin
CPT/HCPCS: 36415; 80053; 93005; 99285; 71046; 83735; 84484; 85025; 93010; 99284

== ENCOUNTER 2024-10-04 11:51 | Emergency (ER) | payer MEDICAID, SELFPAY ==
[2024-10-04] VITALS (36 sets, daily range): BP systolic 122–160; BP diastolic 79–110; PULSE 49–94; RESP 9–22; TEMP 36.6–36.7; O2SAT 96–100
--- NOTE | 2024-10-04 12:30 | W.ED.GENAD ---
Discharge Plan Disposition Patient Disposition: Home Condition: Stable Discharge Details Clinical Impression: Hypercalcemia, Hyperkalemia, Abdominal pain of unknown cause Primary Care Provider: None,None ED Provider: Walt Tran Home Meds and New Rx's Prescriptions: Continued aspirin 325 mg Tablet 325 mg PO BID buprenorphine-naloxone [Suboxone] 8-2 mg film 1 film sublingual DAILY Patient Comments: attempting to taper Discharge Instructions Instructions: Hypercalcemia (DC), Abdominal Pain, Adult ED, Hyperkalemia Additional Instructions: You were seen in the emergency department for your abdominal pain of unknown cause, you need an upper endoscopy as you have some gastric wall thickening on your CT scan, you state you have a history of peptic ulcer disease this could account for this finding but I am recommending you see the general surgery practice for an outpatient endoscopy. You have elevated calcium and potassium, we do not need to prescribe any medicines for this right now but you do need an outpatient recheck please contact your primary care's office and see if they can arrange for outpatient labs in 1 to 2 weeks, return to the ER for any acute worsening, any palpitations or chest pain, any severe abdominal pain with fever, intractable nausea or vomiting. We did lower your potassium through means of IV medicines to help shift potassium from your bloodstream into your cells to normalize your cardiac rhythm. Please return to the emergency department for any emergent concerns, please follow-up with your primary care provider for these issues as they need to be addressed through a thorough outpatient workup. Referrals: [facility] [Provider Group] HPI General Date/Time Provider Initiated Documentation: 10/04/24 12:29. HPI Narrative: 39 year-old male presents to ED today by POV/ambulating with a chief complaint of generalized abdominal pain with onset for the past two weeks. Quality described as generalized upper and umbilical abdominal pain, no radiation to fever, vomiting, hematemesis, coffee-ground emesis, black stools- endorses history of PUD, denies chest pain, denies urinary changes, denies URI symptoms or SOB. Severity is described as moderate. Palliating factors include nothing specific attempted- patient does not like to take artificial medications. Provoking factors include nothing specific. Events leading up to the incident/Associated Symptoms: Patient has been incarcerated for some time, takes care of his elderly parents currently. Patient not anticoagulated. Related Data Home Medications ?Medication ?Instructions ?Recorded ?Confirmed aspirin 325 mg tablet 325 mg PO BID 12/15/22 07/17/24 buprenorphine 8 mg-naloxone 2 mg 1 film sublingual DAILY 07/17/24 07/17/24 sublingual film (Suboxone) Allergies Allergy/AdvReac Type Severity Reaction Status Date / Time iodine Allergy Severe Anaphylaxis Unverified 07/17/24 08:03 codeine AdvReac Mild vomiting Unverified 12/15/22 01:56 General Stated Complaint: Abd Prob ANH: 3 Review of Systems All systems reviewed & are unremarkable except as noted in HPI and below Exam Narrative Exam Narrative: GENERAL APPEARANCE: Well-nourished, non-toxic, awake and alert, atraumatic, no acute distress. SKIN: Warm, pink, dry, intact, without rashes/lesions/ulcerations. HEAD: Normocephalic, atraumatic, normal hair distribution for gender/age. EYES: Normal conjunctiva, no exudates on lids/lashes. ENT: Nares patent, no circumoral cyanosis, no facial swelling NECK: Supple, trachea midline, painless cervical ROM. LUNGS/CHEST: Lungs CTA bilaterally- no rhonchi/rales/wheezes diffusely, non-labored respirations, normal A/P diameter, symmetrical expansion, no chest wall deformity HEART (CV/PV): Regular rate and rhythm without murmur, no peripheral edema, no JVD. ABDOMEN: Soft, non-distended, no guarding, umbilical tenderness, negative Polanco sign, no rebound tenderness, no CVA tenderness percussion bilaterally. MSK: Normal ROM, no swelling/deformity to bilateral UEs or LEs, moving all extremities without weakness, no cyanosis, spine midline without tenderness, normal curvature. NEURO: Mental Status AAOx4 - alert to person, place, time, events No facial droop, no forehead involvement. Motor: No focal weakness - strength 5/5 in bilateral UEs and LEs, proximal and distal, symmetric. Sensory: sensation intact to light touch globally. Gait normal: patient ambulated without ataxia into ED room. PSYCH: euthymic, cooperative, pleasant, appropriate speech Course Vital Signs Vital signs: Vital Signs Temperature 36.6 C 10/04/24 11:55 Pulse 94 H 10/04/24 11:55 Respiratory Rate 18 10/04/24 11:55 Blood Pressure 160/82 H 10/04/24 11:55 Pulse Oximetry 98 10/04/24 11:55 Temperature 36.6 C 10/04/24 11:55 Temperature Source Oral 10/04/24 11:55 Pulse 94 H 10/04/24 11:55 Respiratory Rate 18 10/04/24 11:55 Blood Pressure 160/82 H 10/04/24 11:55 Blood Pressure Position Sitting 10/04/24 11:55 Pulse Oximetry 98 10/04/24 11:55 Oxygen Delivery Method Room Air 10/04/24 11:55 Oxygen Flow Rate 0 10/04/24 11:55 Medical Decision Making This dictation utilizes [id number] dictation software and may contain unedited grammatical errors. 39 year-old male presents to ED today by POV/ambulating with a chief complaint of generalized abdominal pain with onset for the past two weeks. Quality described as generalized upper and umbilical abdominal pain, no radiation to fever, vomiting, hematemesis, coffee-ground emesis, black stools- endorses history of PUD, denies chest pain, denies urinary changes, denies URI symptoms or SOB. Severity is described as moderate. Palliating factors include nothing specific attempted- patient does not like to take artificial medications. Provoking factors include nothing specific. Events leading up to the incident/Associated Symptoms: Patient has been incarcerated for some time, takes care of his elderly parents currently. Patients' medical history: Chronic abdominal pain, polysubstance abuse, history of hepatitis C. Family and social history: Denies active IVDU or EtOH, lives at home with elderly parents. Pertinent exam findings / vital signs include generalized umbilical tenderness, no rebound tenderness, negative Polanco sign, benign cardiopulmonary exam, nontoxic vitals, no CVA tenderness percussion bilaterally. Differential / pathologies of concern include SBO, gastroenteritis, gastritis, colitis, pancreatitis, malignancy, dehydration. Diagnostic studies of: -CBC, CMP, magnesium, lactate, lipase, CT ABD/pelvis without contrast. -CBC is benign -CMP shows hyperkalemia of 5.2, hypercalcemia of 10.8 -Magnesium within normal limits -Lipase negative -CT shows thickening of the gastric fundus, recommend EGD outpatient, concern possible gastric malignancy but patient does have history of peptic ulcer disease while incarcerated -EKG was performed and showed peaked T waves, patient is undergoing hyperkalemia treatment Interventions of: -Toradol, Tylenol, calcium gluconate, albuterol, insulin, 1 amp of D50, D5W 1 L, Kayexalate. ED Course/Assessment/Plan: 39-year-old male presents with generalized abdominal pain, concern for possible gastric malignancy versus longstanding history of peptic ulcer disease for gastric fundus thickening, recommend EGD and placed a month surgery follow-up list, he does have electrolyte abnormalities including hyperkalemia with EKG changes which was addressed here. The patient is undergoing treatment for hyperkalemia at this time, unknown source of hypercalcemia, sending out PTH laboratory studies, concerned that these could be related to his thickened gastric fundus and malignancy. [facility] is [facility] out [facility] provider Kaylin Ramirez NP at time of shift change with likely repeat EKG and discharge with resolution of EKG changes. Disposition of Hyperkalemia, Hypercalcemia, Abdominal Pain of Unknown Cause. Patient verbalized understanding of the plan and return to ED criteria and engaged in shared decision making. Medical Records Medical records reviewed: Yes I reviewed the patient's medical records. Lab Data Lab results reviewed: Yes I reviewed the patient's lab results. Labs: Laboratory Tests Range/Units 10/04/24 13:27 WBC (4.4-10.8) 10^3/uL 10.07 RBC (4.36-5.78) 10^6/uL 5.44 Hgb (13.5-17.5) g/dL 16.6 Hct (40.0-50.0) % 49.0 MCV (80-95) fL 90 MCH (27.0-33.0) pg 30.5 MCHC (32.0-36.0) % 33.9 RDW (11.8-14.1) % 12.5 Plt Count (130-400) 10^3/uL 225 MPV (8.0-11.0) fL 9.6 Immature Gran % % 0.3 Neutrophils % % 68.9 Lymphocytes % % 23.0 Monocytes % % 5.6 Eosinophils % % 1.5 Basophils % % 0.7 Nucleated RBC % (0.0-0.3) % 0.0 Absolute Neutrophils (1.2-6.7) 10^3/uL 6.94 H Absolute Lymphocytes (1.2-3.4) 10^3/uL 2.32 Absolute Monocytes (0.1-0.8) 10^3/uL 0.56 Absolute Eosinophils (0.0-0.7) 10^3/uL 0.15 Absolute Basophils (0.0-0.2) 10^3/uL 0.07 VBG Lactate (<or=2.0) mmol/L 1.1 Sodium (136-145) mmol/L 142 Potassium (3.5-5.1) mmol/L 5.2 H Chloride (98-107) mmol/L 105 Carbon Dioxide (21.0-32.0) mmol/L 32.4 H Anion Gap (3-11) mmol/L 4.6 BUN (7-18) mg/dL 20 H Creatinine (0.70-1.30) mg/dL 1.1 Est GFR (CKD-EPI 2020) (mL/min/1.73m2) 86.49 Glucose (74-106) mg/dL 97 Calcium (8.5-10.1) mg/dL 10.8 H Magnesium (1.8-2.4) mg/dL 2.1 Total Bilirubin (0.2-1.0) mg/dL 0.88 AST (15-37) U/L 20 ALT (16-63) U/L 25 Alkaline Phosphatase (46-116) U/L 87 Total Protein (6.4-8.2) g/dL 8.5 H Albumin (3.4-5.0) g/dL 4.7 Lipase (<78) U/L 33 Quality:SDOH Health Related Social Needs: Health related social needs housing instability, housed, with risk of homelessness (Z59.811) PFSH All Active Problems (Updated 10/04/24 @ 14:53 by LYDIA Hernandez) Abdominal pain of unknown cause (Acute) Hyperkalemia (Acute) Hypercalcemia (Acute) Abscess, dental (Acute) Scrotal pain (Acute) Medical History (Updated 10/04/24 @ 14:53 by LYDIA Hernandez) Chronic abdominal pain Polysubstance abuse Lower back pain Sciatica Hepatitis C antibody test positive Acute stress reaction Blurred vision Rectal bleeding Abnormal weight loss Social History Smoking/Tobacco Use Status: Current every day Tobacco Type: cigarettes Smoking packs per day: 0.5 Smoking cigarettes per day: 10.0 Smoking risk assessment performed?: Yes Alcohol Intake: current Alcohol Intake frequency: a few times a month Alcohol type: beer Drug use: Daily Substance use type: former substance user and marijuana Housing: apartment Do you feel safe at home: Yes Do you feel safe in your relationship?: Yes
--- NOTE | 2024-10-04 13:15 | DI.CT_ITS ---
Exam(s) CT ABDOMEN PELVIS WO EXAM: CT ABDOMEN PELVIS WO CLINICAL HISTORY: umbilical tenderness/LLQ. TECHNIQUE: Imaging Protocol: Axial computed tomography images with coronal and sagittal reformatted images were created and reviewed CONTRAST MATERIAL: Intravenous: none Oral: None COMPARISON: CT CT ABDOMEN PELVIS WO from 12/15/2022 FINDINGS: VISUALIZED LUNG BASES: There is a 4 millimeter nodule peripherally located in the lateral basal segme nt left lower lobe, again unchanged. Indeed, unchanged from 2019 and therefore benign. No new lung base nodules noted. No pleural effusions.. ABDOMEN: GI: There is no ascites. There is slight thickening of the wall of the stomach in the region of the fundus, possibly significant (series 7/image 16) no hiatal hernia and the actual GE junction appears unremarkable. Remainder of the stomach appears unremarkable. There are no dilated bowel loops nor o bvious acute inflammatory process LIVER: There are no obvious focal hepatic lesions evident of this noninfused study. GALLBLADDER/BILIARY: No obvious gallbladder pathology. CBD is not dilated. PANCREAS: No evidence of pancreatic mass nor dilatation of the pancreatic duct. SPLEEN: Spleen is not enlarged. No obvious intrasplenic lesions. ADRENALS: There are no significant adrenal masses. KIDNEYS:No cysts evident. No solid renal masses. No calculi nor hydronephrosis. . ABDOMINAL AORTA: Abdominal aorta is not enlarged. LYMPH NODES: There is no retroperitoneal nor paraaortic adenopathy. ABDOMINAL WALL: No evidence of significant anterior abdominal wall nor inguinal hernia. GI: There is no evidence of bowel obstruction, free air, nor abscess. PELVIS: LYMPH NODES: There is no intrapelvic nor inguinal adenopathy. GI: No evidence of appendicitis.No evidence of sigmoid diverticulitis. URINARY BLADDER: No calculi nor obvious masses evident REPRODUCTIVE: Prostate size normal. OSSEOUS: No significant osseous lesions. Multilevel degenerative disc disease with most prominent disc space narrowing evident at L2-3 level. There is mild retrolisthesis of L2 upon L3. No fractures evident. IMPRESSION: 1. There is some abnormal thickening of the stomach wall at the level the fundus, possibly significan t. Recommend follow-up endoscopy to rule out malignancy. 2. No acute inflammatory process in the abdomen and pelvis 3. No ascites. Called by myself to ER provider 10/04/2024 at 2:16 p.m. RADIATION DOSE DELIVERED: 450.46mGy.cm Total DLP DATA REPOSITORY: All CT scans at this facility are submitted to the National Radiology Data Registry (NRDR) Dose Index Registry (DIR) with the [employer] (ACR). RADIATION OPTIMIZATION: All CT scans at this facility use at least one of these dose optimization te chniques: automated exposure control; mA and/or kV adjustment per patient size (includes targeted exa ms where dose is matched to clinical indication); or iterative reconstruction.
[2024-10-04 13:36] LABS: Abs Immature Grans 0.03 10^3/uL (0.0-0.06); Absolute Basophil Count 0.07 10^3/uL (0.0-0.2); Absolute Eosinophil Count 0.15 10^3/uL (0.0-0.7); Absolute Lymphocyte Count 2.32 10^3/uL (1.2-3.4); Absolute Monocyte Count 0.56 10^3/uL (0.1-0.8); Absolute Neutrophil Count 6.94 10^3/uL (1.2-6.7); Basophils % 0.7 %; Eosinophils % 1.5 %; HGB 16.6 g/dL (13.5-17.5); Immature Grans % 0.3 %; Lactate 1.1 mmol/L (<or=2.0); MCH 30.5 pg (27.0-33.0); MCHC 33.9 % (32.0-36.0); MCV 90 fL (80-95); MPV 9.6 fL (8.0-11.0); Monocytes % 5.6 %; Neutrophils % 68.9 %; Platelet Count 225 10^3/uL (130-400); RBC 5.44 10^6/uL (4.36-5.78); RDW 12.5 % (11.8-14.1); WBC 10.07 10^3/uL (4.4-10.8)
[2024-10-04] MEDS: ACETAMINOPHEN 1,000 MG/100 ML BAG 400 MG IVPB (13:50)
[2024-10-04] MEDS: Ketorolac 15 MG/ML VIAL IVP (13:50)
[2024-10-04 13:56] LABS: ALT 25 U/L (16-63); AST 20 U/L (15-37); Albumin 4.7 g/dL (3.4-5.0); Alkaline Phosphatase 87 U/L (46-116); Anion Gap 4.6 mmol/L (3-11); BUN 20 mg/dL (7-18); Bilirubin, Total 0.88 mg/dL (0.2-1.0); CO2 32.4 mmol/L (21.0-32.0); CREATININE 1.1 mg/dL (0.70-1.30); Calcium 10.8 mg/dL (8.5-10.1); Chloride 105 mmol/L (98-107); Estimated GFR 86.49 (mL/min/1.73m2); Glucose 97 mg/dL (74-106); Lipase 33 U/L (<78); Magnesium 2.1 mg/dL (1.8-2.4); Potassium 5.2 mmol/L (3.5-5.1); Sodium 142 mmol/L (136-145); Total Protein 8.5 g/dL (6.4-8.2)
--- NOTE | 2024-10-04 14:45 | RT.EKG_ITS ---
APPROVED REPORT Exam: Resting ECG Reason for Exam: hyperkalemia Patient Location: E HR:55 bpm ECG Measurements Heart Rate 55 AXIS OH 129 P 62 QRSd 97 QRS 88 QT 419 T 62 QTc 400 Conclusion Sinus bradycardia, rate 55 No interval abnormalities No STEMI Peaked T waves, similar to priors
--- NOTE | 2024-10-04 15:39 | ED.PROG_ITS ---
Date of service: 10/04/24 Time of Service: 15:39 Medical Decision Making Care assumed from provider Josh. Chelsea FREEMAN) Please see their initial HPI, PE, and documentation. Discussed patient details and case and pending workup and disposition. Patient is hemodynamically stable, and alert and oriented. At the time of signout awaiting meds for hyperkalemia and reevaluation. Approached by nursing staffing coordinator who is questioning the 25 g of D50 and that the 5W drip. At this time canceled the D5W drip and will just give the ampule of dextrose. Will wait approximately 30 minutes recheck the potassium and EKG. Repeat EKG performed, T wave show less peaking. Normal sinus rhythm. Awaiting repeat BMP. Repeat BMP shows elevation in the potassium to 5.7, upon patient reevaluation he appears very agitated and upset and is requesting to leave he is pulling off of the leads. I did repeat a lab draw for potassium which patient is unwilling to stay for. He also states I am not signing any paperwork. Patient requesting to leave department AMA at this time. Patient requesting to leave AMA. The patient appears clinically sober and is not under the influence of any known substances. Discussed risks and benefits with patient. Patient verbalizes understanding of situation and the risks of leaving including worsening condition, developing disability, including but not limited to . Discussed results of labs and imaging, if they were performed and recommendations for further treatment and/or observation. The patient verbalizes understanding of the results discussed. At this time patient has opted to leave against medical advice. Patient is alert and oriented and has the capacity to make own decisions. Pt took out his IV and refused to sign AMA paperwork. VSS. This text was generated using HelloNatureation system, please disregard any oddities of phrase or misspellings. Medical Records Medical records reviewed: Yes I reviewed the patient's medical records. Lab Data Lab results reviewed: Yes I reviewed the patient's lab results. Labs: Laboratory Tests Range/Units 10/04/24 10/04/24 13:27 17:15 WBC (4.4-10.8) 10^3/uL 10.07 RBC (4.36-5.78) 10^6/uL 5.44 Hgb (13.5-17.5) g/dL 16.6 Hct (40.0-50.0) % 49.0 MCV (80-95) fL 90 MCH (27.0-33.0) pg 30.5 MCHC (32.0-36.0) % 33.9 RDW (11.8-14.1) % 12.5 Plt Count (130-400) 10^3/uL 225 MPV (8.0-11.0) fL 9.6 Immature Gran % % 0.3 Neutrophils % % 68.9 Lymphocytes % % 23.0 Monocytes % % 5.6 Eosinophils % % 1.5 Basophils % % 0.7 Nucleated RBC % (0.0-0.3) % 0.0 Absolute Neutrophils (1.2-6.7) 10^3/uL 6.94 H Absolute Lymphocytes (1.2-3.4) 10^3/uL 2.32 Absolute Monocytes (0.1-0.8) 10^3/uL 0.56 Absolute Eosinophils (0.0-0.7) 10^3/uL 0.15 Absolute Basophils (0.0-0.2) 10^3/uL 0.07 VBG Lactate (<or=2.0) mmol/L 1.1 Sodium (136-145) mmol/L 142 144 Potassium (3.5-5.1) mmol/L 5.2 H 5.7 H Chloride (98-107) mmol/L 105 107 Carbon Dioxide (21.0-32.0) mmol/L 32.4 H 33.1 H Anion Gap (3-11) mmol/L 4.6 3.9 BUN (7-18) mg/dL 20 H 21 H Creatinine (0.70-1.30) mg/dL 1.1 1.1 Est GFR (CKD-EPI 2020) (mL/min/1.73m2) 86.49 86.49 Glucose (74-106) mg/dL 97 85 Calcium (8.5-10.1) mg/dL 10.8 H 11.1 H Magnesium (1.8-2.4) mg/dL 2.1 Total Bilirubin (0.2-1.0) mg/dL 0.88 AST (15-37) U/L 20 ALT (16-63) U/L 25 Alkaline Phosphatase (46-116) U/L 87 Total Protein (6.4-8.2) g/dL 8.5 H Albumin (3.4-5.0) g/dL 4.7 Lipase (<78) U/L 33 Quality:SDOH Health Related Social Needs: Health related social needs housing instability, house d, with risk of homelessness (Z59.811) Discharge Plan Disposition Patient Disposition: Against Medical Advice Condition: Stable Discharge Details Clinical Impression: Hypercalcemia, Hyperkalemia, Abdominal pain of unknown cause Primary Care Provider: None,None ED Provider: Kaylin Ramirez Home Meds and New Rx's Prescriptions: No Action No Known Home Meds Discharge Instructions Instructions: Hypercalcemia (DC), Abdominal Pain, Adult ED, Hyperkalemia Additional Instructions: You were seen in the emergency department for your abdominal pain of unknown cause, you need an upper endoscopy as you have some gastric wall thickening on your CT scan, you state you have a history of peptic ulcer disease this could account for this finding but I am recommending you see the general surgery practice for an outpatient endoscopy. You have elevated calcium and potassium, we do not need to prescribe any medicines for this right now but you do need an outpatient recheck please contact your primary care's office and see if they can arrange for outpatient labs in 1 to 2 weeks, return to the ER for any acute worsening, any palpitations or chest pain, any severe abdominal pain with fever, intractable nausea or vomiting. We did lower your potassium through means of IV medicines to help shift potassium from your bloodstream into your cells to normalize your cardiac rhythm. Please return to the emergency department for any emergent concerns, please follow-up with your primary care provider for these issues as they need to be addressed through a thorough outpatient workup. Referrals: [facility] [Provider Group]
[2024-10-04] MEDS: Albuterol 2.5 MG/3 ML INH SOLN VIAL UPD (16:10)
[2024-10-04] MEDS: Insulin REGULAR-Human 100 UNITS/ML UNIT IV (16:14)
[2024-10-04] MEDS: Dextrose 50%-Water 25 GM/50 ML SYR IVP (16:14)
[2024-10-04] MEDS: Calcium Gluconate 4.65 MEQ/10 ML VIAL 4.65 MG IVP (16:29)
--- NOTE | 2024-10-04 16:45 | RT.EKG_ITS ---
APPROVED REPORT Exam: Resting ECG Reason for Exam: Repeat Patient Location: E HR:64 bpm ECG Measurements Heart Rate 64 AXIS [place] 133 P 88 QRSd 101 QRS 86 QT 396 T 46 QTc 408 Conclusion Sinus rhythm...normal P axis, V-rate 60- [address] segment or T wave abnormalities to suggest occlusive FL
[2024-10-04 17:34] LABS: Anion Gap 3.9 mmol/L (3-11); BUN 21 mg/dL (7-18); CO2 33.1 mmol/L (21.0-32.0); CREATININE 1.1 mg/dL (0.70-1.30); Calcium 11.1 mg/dL (8.5-10.1); Chloride 107 mmol/L (98-107); Estimated GFR 86.49 (mL/min/1.73m2); Glucose 85 mg/dL (74-106); Potassium 5.7 mmol/L (3.5-5.1); Sodium 144 mmol/L (136-145)
== END 2024-10-04 20:49 | disposition left against medical advice (07) ==
PROVIDERS: Physician Assistant; Emergency Provider Registered Nurse Emergency
DX: R10.84 Generalized abdominal pain (principal); E83.52 Hypercalcemia; E87.5 Hyperkalemia; F17.210 Nicotine dependence, cigarettes, uncomplicated; Z79.82 Long term (current) use of aspirin; Z53.29 Procedure and treatment not carried out because of patient's decision for other reasons
CPT/HCPCS: 00123; 36415; 80048; 80053; 83690; 93005; 94640; 96365; 96375; 99285; 74176; 83605; 83735; 84132; 85025; 93010; J0131; J0612; J1815; J1885; J7613

== ENCOUNTER 2024-10-04 19:08 | Emergency (ER) | payer MEDICAID, SELFPAY ==
[2024-10-04] VITALS (8 sets, daily range): BP systolic 128–139; BP diastolic 88–94; PULSE 68–100; RESP 10–18; TEMP 36.4; O2SAT 96–100
--- OUTSIDE RECORDS SUMMARY | 2024-10-04 19:22 | XMS_ITS | Clinical Summary ---
Author Organization [facility] Address [address] [place] [address] Care Team Providers Care Biofuels Technology Manager Name Role Phone Jena Tolliver ROLL GRINDER Primary Care Provider [phone]- [phone] Allergies Active Allergy Reactions Criticality Noted Date Comments Iodine And Iodide Containing Products Swelling,Rash Medications paroxetine (PAXIL CR) 25 mg CR tablet Take 25 mg by mouth daily. Active Active Problems Problem Noted Date Diagnosed Date Anxiety 03/23/2006 Overview (06/10/2010): 10 years Family History Medical History Relation Comments Breast Cancer Other Colon Cancer Other Coronary Artery Disease Other Diabetes Other Relation Status Comments Other Social History Tobacco Use Types Packs/Day Years Used Date Smoking Tobacco: Never Assessed Sex and Gender Information Value Date Recorded Sex Assigned at Not on file Legal Sex Male 17:53 EST Gender Identity Not on file Sexual Orientation Not on file Obstetrics History Plan of Treatment Health Maintenance Due Date Last Done Comments Hepatitis B Vaccine (1 of 3 - 19+ 3-dose series) 2002 COVID-19 Vaccine (2023- season) 2024 Hepatitis C Screen Completed 09/03/2022, 09/03/2022 Procedures Procedure Name Priority Date/Time Associated Diagnosis Comments HEPATITIS C AB W REFLEX TO HCV RNA BY PCR Routine 09/03/2022 10:25 EST from Last 3 Months or Most Recently Relevant to Health Maintenance Results * (ABNORMAL) HEPATITIS C AB W REFLEX TO HCV RNA BY PCR (09/03/2022 10:25 EST) Hep C Antibody Reactive(A ) Negative 09/04/2022 10:01 EST [facility] Comment: Supplemental testing for HCV RNA is ordered to rule out active HCV infection. Index value ??is >=1.00 and <11.00 Blood VENOUS BLOOD / Unknown 09/03/2022 10:25 EST 09/03/2022 21:53 EST us Provider Outr Resulting Lab CHEMISTRY & BLOOD GA S ORDERABLES Final Result [facility] [address] [place] [address] from Last 3 Months or Most Recently Relevant to Health Maintenance Care Teams Biofuels Technology Manager Relationship Specialty Start Date End Date Jena Tolliver FNP [address] [address] PCP - General 05/01/15
--- OUTSIDE RECORDS SUMMARY | 2024-10-04 19:22 | XMS_ITS | Encounter Summary ---
Author Organization [facility] Address [address] [place] [address] Care Team Providers Care Food Mobile Driver Name Role Phone Jena Tolliver DISTRIBUTION SPECIALIST Primary Care Provider [phone]- [phone] Encounter Details Date Type Department Care Team (Late st Contact Info) Description 08/26/2019 Lab Requisition [facility] - [address] [address] Unknown, Provider, Social History Tobacco Use Types Packs/Day Years Used Date Smoking Tobacco: Never Assessed Sex and Gender Information Value Date Recorded Sex Assigned at Not on file Legal Sex Male 17:53 EST Gender Identity Not on file Sexual Orientation Not on file documented as of this encounter Plan of Treatment Not on file documented as of this encounter Procedures Procedure Name Priority Date/Time Associated Diagnosis Comments PSA TOTAL, DIAGNOSTIC Routine 08/25/2019 15:30 EST documented in this encounter Results * PSA TOTAL, DIAGNOSTIC (08/25/2019 15:30 EST) PSA 0.4 0.0 - 2.5 ng/mL 08/29/2019 10:22 EST [facility] Blood VENOUS BLOOD / Unknown 08/25/2019 15:30 EST 08/26/2019 16:16 EST Narrative [facility] - 08/29/2019 10:22 EST NOTE: Serum PSA concentration should not be interpreted as absolute evidence for the presence or absence of malignant disease. Assayed on Siemens ADVIA Cloopenaur XPT using chemiluminescent technology. ??Values obtained by using different assay methods cannot be used interchangeably. us Provider Unknown CHEMISTRY & BLOOD GAS ORDERA BLES Final Result [facility] [address] [place] [address] documented in this encounter Visit Diagnoses Not on filedocumented in this encounter Care Teams Food Mobile Driver Relationship Specialty Start Date End Date Jena Tolliver FNP [address] [address] PCP - General 05/01/15 documented as of this encounter
--- OUTSIDE RECORDS SUMMARY | 2024-10-04 19:22 | XMS_ITS | Referral Summary ---
Author Organization [facility] Address [address] [place] [address] Care Team Providers Care Scrap Separator Name Role Phone Jena Tolliver BOOKING MANAGER Primary Care Provider +1- [phone] Allergies Active Allergy Reactions Criticality Noted Date Comments Iodine And Iodide Containing Products Swelling,Rash Medications paroxetine (PAXIL CR) 25 mg CR tablet Take 25 mg by mouth daily. Active Active Problems Problem Noted Date Diagnosed Date Anxiety 03/23/2006 Overview (06/10/2010): 10 years Social History Tobacco Use Types Packs/Day Years Used Date Smoking Tobacco: Never Assessed Sex and Gender Information Value Date Recorded Sex Assigned at Not on file Legal Sex Male 17:53 EST Gender Identity Not on file Sexual Orientation Not on file Plan of Treatment Not on file Procedures Procedure Name Priority Date/Time Associated Diagnosis Comments HEPATITIS C AB W REFLEX TO HCV RNA BY PCR Routine 09/03/2022 10:25 EST from Last 3 Months or Most Recently Relevant to Health Maintenance Results * (ABNORMAL) HEPATITIS C AB W REFLEX TO HCV RNA BY PCR (09/03/2022 10:25 EST) Hep C Antibody Reactive(A ) Negative 09/04/2022 10:01 EST [facility] Comment: Supplemental testing for HCV RNA is ordered to rule out active HCV infection. Index value ??is >=1.00 and <11.00 Blood VENOUS BLOOD / Unknown 09/03/2022 10:25 EST 09/03/2022 21:53 EST us Provider Outr Resulting Lab CHEMISTRY & BLOOD GA S ORDERABLES Final Result [facility] [address] [place] [address] from Last 3 Months or Most Recently Relevant to Health Maintenance Care Teams Scrap Separator Relationship Specialty Start Date End Date Jena Tolliver FNP [address] [address] PCP - General 05/01/15
--- OUTSIDE RECORDS SUMMARY | 2024-10-04 19:22 | XMS_ITS | Encounter Summary ---
Author Organization [facility] Address [address] [place] [address] Care Team Providers Care Customer Support Executive Name Role Phone Unavailable Primary Care Provider Unavailabl e Encounter Details Date Type Department Care Team (Latest Contact Info) Description 01/05/2001 19:08 EDT Hospital Encounter [facility] Emergency Department - Main [place] [address] [place], [place] [id number] Emergency, Default, MD Discharge Disposition: Home or Self Care Social History Tobacco Use Types Packs/Day Years Used Date Smoking Tobacco: Never Assessed Sex and Gender Information Value Date Recorded Sex Assigned at Not on file Legal Sex Male 17:53 EST Gender Identity Not on file Sexual Orientation Not on file documented as of this encounter Discharge Disposition Disposition Code Departure Means Destination Home or Self Care documented in this encounter Plan of Treatment Not on file documented as of this encounter Visit Diagnoses Not on filedocumented in this encounter
--- OUTSIDE RECORDS SUMMARY | 2024-10-04 19:22 | XMS_ITS | Encounter Summary ---
Author Organization [facility] Address [address] [place] [address] Care Team Providers Care Housekeeper Hospital Name Role Phone Unavailable Primary Care Provider Unavailabl e Encounter Details Date Type Department Care Team (Latest Contact Info) Description 07/18/1999 10:58 EST - 07/18/1999 11:59 EST Hospital Encounter [address] [address] Jona Rizvi MD [address] [place] [phone] Discharge Disposition: Auto Discharge Social History Tobacco Use Types Packs/Day Years Used Date Smoking Tobacco: Never Assessed Sex and Gender Information Value Date Recorded Sex Assigned at Not on file Legal Sex Male 17:53 EST Gender Identity Not on file Sexual Orientation Not on file documented as of this encounter Discharge Disposition Disposition Code Departure Means Destination Auto Discharge documented in this encounter Plan of Treatment Not on file documented as of this encounter Procedures Procedure Name Priority Date/Time Associated Diagnosis Comments WRIST 3 OR MORE VIEWS Routine 01/03/2000 12:16 EDT TIBIA FIBULA 2 VIEWS Routine 07/18/1999 11:32 EST FOOT 3 OR MORE VIEWS Routine 07/18/1999 11:32 EST documented in this encounter Results * WRIST 3 OR MORE VIEWS (01/03/2000 12:16 EDT) Anatomical Region Laterality Modality Other 01/03/2000 12:1 6 EDT Impressions 07/24/2009 12:33 EST IMPRESSION: 1. Question of occult fracture of the distal radius. If further evaluation is warranted, Nuclear Medicine Bone Scan may be helpful. These findings were discussed with Dr. Rizvi at 12:40 p.m. on 01/03/2000. /rml Narrative 07/24/2009 12:33 EST FELL ON CATALAN FLEXED WRIST 5 DAYS AGO POINT TENDERNESS MID WRIST WITH DECR DORSI CATALAN FLEXION RIGHT WRIST 01/03/2000 12:10 CLINICAL HISTORY: Fell on palmar flexed wrist five days ago, point tender over mid wrist with decreased dorsipalmar flexion. Rule out fracture. FINDINGS: Four views were obtained. There is slightly prominent angulation along the volar aspect of the metadiaphysis of the radius, best seen on the lateral view. No definite fracture line is identified. The exam is otherwise normal. Procedure Note Zackery Locke MD - 07/24/2009 FELL ON CATALAN FLEXED WRIST 5 DAYS AGO POINT TENDERNESS MID WRIST WITH DECR DORSI CATALAN FLEXION RIGHT WRIST 01/03/2000 12:10 CLINICAL HISTORY: Fell on palmar flexed wrist five days ago, point tender over mid wrist with decreased dorsipalmar flexion. Rule out fracture. FINDINGS: Four views were obtained. There is slightly prominent angulation along the volar aspect of the metadiaphysis of the radius, best seen on the lateral view. No definite fracture line is identified. The exam is otherwise normal. IMPRESSION IMPRESSION: 1. Question of occult fracture of the distal radius. If further evaluation is warranted, Nuclear Medicine Bone Scan may be helpful. These findings were discussed with Dr. Rizvi at 12:40 p.m. on 01/03/2000. /[facility] Jona Rizvi MD IMG DIAGNOSTIC IMAGING ORDERA BLES Final Result * FOOT 3 OR MORE VIEWS (07/18/1999 11:32 EST) Anatomical Region Laterality Modality Other 07/18/1999 11:3 2 EST Narrative 07/24/2009 8:51 EST SEVERE INJURY 07/15/99 , SWELLING + ECCHYMOSIS, LT FOOT XRAYED 07/16/99 LEFT TIBIA AND FIBULA AND LEFT FOOT 07/18/99 11:20. CLINICAL HISTORY: Severe injury, swelling, and ecchymosis rule out fracture. LEFT TIBIA AND FIBULA: Two views were obtained. Bones and soft tissues are within normal limits. No fracture is identified. LEFT FOOT: Three views were obtained. Bones and soft tissues are within normal limits. No fracture is identified. These findings were communicated to Dr. Rizvi by telephone at 12:00 noon on 07/18/99. /jazmyn Procedure Note Zackery Locke MD - 07/24/2009 SEVERE INJURY 07/15/99 , SWELLING + ECCHYMOSIS, LT FOOT XRAYED 07/16/99 LEFT TIBIA AND FIBULA AND LEFT FOOT 07/18/99 11:20. CLINICAL HISTORY: Severe injury, swelling, and ecchymosis rule out fracture. LEFT TIBIA AND FIBULA: Two views were obtained. Bones and soft tissues are within normal limits. No fracture is identified. LEFT FOOT: Three views were obtained. Bones and soft tissues are within normal limits. No fracture is identified. These findings were communicated to Dr. Rizvi by telephone at 12:00 noon on 07/18/99. /jazmyn Jona Rizvi MD [facility] DIAGNOSTIC IMAGING ORDERA BLES Final Result * TIBIA FIBULA 2 VIEWS (07/18/1999 11:32 EST) Anatomical Region Laterality Modality Other 07/18/1999 11:3 2 EST Narrative 07/24/2009 8:51 EST SEVERE INJURY 07/15/99 , SWELLING + ECCHYMOSIS, LT FOOT XRAYED 07/16/99 Procedure Note Zackery Locke MD - 07/24/2009 SEVERE INJURY 07/15/99 , SWELLING + ECCHYMOSIS, LT FOOT XRAYED 07/16/99 Jona Rizvi MD [facility] DIAGNOSTIC IMAGING ORDERA BLES Final Result documented in this encounter Visit Diagnoses Not on filedocumented in this encounter
--- OUTSIDE RECORDS SUMMARY | 2024-10-04 19:22 | XMS_ITS | Encounter Summary ---
Author Organization [facility] Address [address] [place] [address] Care Team Providers Care Skoog Machine Operator Name Role Phone Jena Tolliver ANIMAL CARE SERVICE WORKER Primary Care Provider +1- [phone] Encounter Details Date Type Department Care Team (Late st Contact Info) Description 09/03/2022 Lab Requisition [facility] Pathology & Laboratory Medicine - [facility] [address] [place] [address] Outr Resulting Lab, Provider Social History Tobacco Use Types Packs/Day Years [...] Procedure Name Priority Date/Time Associated Diagnosis Comments HCV RNA DETECT QUANT Today 09/03/2022 10:25 EST HEPATITIS C AB W REFLEX TO HCV RNA BY PCR Routine 09/03/2022 10:25 EST HEPATITIS A TOTAL ANTIBODY W REFLEX Routine 09/03/2022 10:25 EST HEPATITIS B SURFACE ANTIBODY Routine 09/03/2022 10:25 EST HEPATITIS B SURFACE ANTIGEN Routine 09/03/2022 10:25 EST documented in this encounter Results * HCV RNA DETECT QUANT (09/03/2022 10:25 EST) HCV RNA Qualitative Undetected Undetected 09/05/2022 11:12 EST [facility] Blood VENOUS BLOOD / Unknown 09/03/2022 10:25 EST 09/03/2022 21:53 EST Narrative [facility] - 09/05/2022 11:12 EST The quantification range of this assay is 15 IU/mL to 100,000,000 IU/mL. Testing was performed using the Yamini HCV test ([employer] with the yamini [employer] System. us Provider Outr Resulting Lab CHEMISTRY & BLOOD GA S ORDERABLES Final Result Performing Organization Address [facility] Co de Phone Number [facility] [address] [place] [address] * HEPATITIS B SURFACE ANTIBODY (09/03/2022 10:25 EST) [facility] Hep B Surface Ab, Quantitative 203.7 See Note mIU/mL 09/04/2022 8:43 [facility] Comment: Reference Range for Hep B Surface Ab, Quant: Positive: >= 10.0 mIU/mL Negative: ??< 10.0 mIU/mL Patient is presumed to be immune to infection with Hepatitis B Virus. Hep B Surface Ab, Qualitative Positive See Note 09/04/2022 8:43 [facility] Comment: Reference Range for Hep B Surface Ab, Qual: Unvaccinated: ??Negative Vaccinated: ??Positive Blood VENOUS BLOOD / Unknown 09/03/2022 10:25 EST 09/03/2022 21:53 EST us Provider Outr Resulting Lab CHEMISTRY & BLOOD GA S ORDERABLES Final Result Performing Organization Address [facility] Co de Phone Number [facility] [address] [place] [address] * HEPATITIS B SURFACE ANTIGEN (09/03/2022 10:25 EST) [facility] Hep B Surface Ag Negative Negative 09/04/2022 9:35 EST [facility] Blood VENOUS BLOOD / Unknown 09/03/2022 10:25 EST 09/03/2022 21:53 EST us Provider Outr Resulting Lab CHEMISTRY & BLOOD GA S ORDERABLES Final Result Performing Organization Address [facility] Co de Phone Number [facility] [address] [place] [address] * (ABNORMAL) HEPATITIS C AB W REFLEX TO HCV RNA BY PCR (09/03/2022 10:25 EST) Hep C Antibody Reactive(A ) Negative 09/04/2022 10:01 EST [facility] Comment: Supplemental testing for HCV RNA is ordered to rule out active HCV infection. Index value ??is >=1.00 and <11.00 Blood VENOUS BLOOD / Unknown 09/03/2022 10:25 EST 09/03/2022 21:53 EST us Provider Outr Resulting Lab CHEMISTRY & BLOOD GA S ORDERABLES Final Result Performing Organization Address [facility] Co de Phone Number [facility] [address] [place] [address] * HEPATITIS A TOTAL ANTIBODY W REFLEX (09/03/2022 10:25 EST) Hepatitis A Antibody, Total Negative Negative 09/04/2022 9:30 EST [facility] Blood VENOUS BLOOD / Unknown 09/03/2022 10:25 EST 09/03/2022 21:53 EST Narrative [facility] - 09/04/2022 9:30 EST The result of this assay can be falsely elevated (Positive) due to the consumption of Biotin. us Provider Outr Resulting Lab CHEMISTRY & BLOOD GA S ORDERABLES Final Result Performing Organization Address [facility] Co de Phone Number [facility] [address] [place] [address] documented in this encounter Visit Diagnoses Not on filedocumented in this encounter Care Teams Skoog Machine Operator Relationship Specialty Start Date End Date Jena Tolliver FNP [place] [address] PCP - General 05/01/15 documented as of this encounter
--- OUTSIDE RECORDS SUMMARY | 2024-10-04 19:22 | XMS_ITS | Encounter Summary ---
Author Organization [facility] Address [address] [place] [address] Care Team Providers Care Terminal Operations Manager Name Role Phone Jena Tolliver PLUG MAKING OPERATOR Primary Care Provider +1- [phone] Encounter Details Date Type Department Care Team (Late st Contact Info) Description 09/03/2022 Lab Requisition [facility] Pathology & Laboratory Medicine - [address] [id number] Outr Resulting Lab, Provider Social History Tobacco [...] Procedure Name Priority Date/Time Associated Diagnosis Comments HIV 1/2 ANTIGEN AND ANTIBODY, 4TH GENERATION Routine 09/03/2022 10:25 EST documented in this encounter Results * HIV 1/2 ANTIGEN AND ANTIBODY, 4TH GENERATION (09/03/2022 10:25 EST) HIV 1 and 2 Antibody/p24 Antigen, 4th Generation Negative Negative 09/04/2022 9:35 EST [facility] Comment:If acute HIV-1 infec tion is suspected in a high risk patient, submit plasma specimen for HIV-1 RNA quantitation test. Blood VENOUS BLOOD / Unknown 09/03/2022 10:25 EST 09/03/2022 21:53 EST Narrative [facility] - 09/04/2022 9:35 EST Fourth Generation assay performed on the Siemens Centaur XPT. us Provider Outr Resulting Lab IMMUNOLOGY AND SEROL OGY ORDERABLES Final Result [facility] [address] [place] [address] documented in this encounter Visit Diagnoses Not on filedocumented in this encounter Care Teams Terminal Operations Manager Relationship Specialty Start Date End Date Jena Tolliver FNP [address] [address] PCP - General 05/01/15 documented as of this encounter
--- OUTSIDE RECORDS SUMMARY | 2024-10-04 19:22 | XMS_ITS | Encounter Summary ---
Author Organization [facility] Address [address] [place] [address] Care Team Providers Care Area Safety Manager Name Role Phone Unavailable Primary Care Provider Unavailabl e Encounter Details Date Type Department Care Team (Latest Contact Info) Description 05/20/2000 12:33 EDT Hospital Encounter [address] [address] Ahsan Abarca MD Discharge Disposition: Auto Discharge Social History Tobacco [...] Comments WRIST 3 OR MORE VIEWS Routine 05/20/2000 13:04 EDT documented in this encounter Results * WRIST 3 OR MORE VIEWS (05/20/2000 13:04 EDT) Anatomical Region Laterality Modality Other 05/20/2000 13:0 4 EDT Impressions 07/24/2009 15:15 EST IMPRESSION: Negative examination. /dkd Narrative 07/24/2009 15:15 EST RT WRIST PAIN,INJURED WRIST PLAYING FOOTBALL LAST NIGHT ??R/O FX RIGHT WRIST: 05/20/00 1305 HOURS. HISTORY: Injured while playing football, pain, rule out fracture. Four views were obtained. FINDINGS: The bones and soft tissues are within normal limits. No fracture is identified. Procedure Note Zackery Locke MD - 07/24/2009 RT WRIST PAIN,INJURED WRIST PLAYING FOOTBALL LAST NIGHT R/O FX RIGHT WRIST: 05/20/00 1305 HOURS. HISTORY: Injured while playing football, pain, rule out fracture. Four views were obtained. FINDINGS: The bones and soft tissues are within normal limits. No fracture is identified. IMPRESSION IMPRESSION: Negative examination. /franky Ahsan Abarca MD IMG DIAGNOSTIC IMAGING ORDERABLES Final Result documented in this encounter Visit Diagnoses Not on filedocumented in this encounter
--- OUTSIDE RECORDS SUMMARY | 2024-10-04 19:22 | XMS_ITS | Encounter Summary ---
Author Organization [facility] Address [address] [place] [address] Care Team Providers Care Underwriting Support Manager Name Role Phone Unavailable Primary Care Provider Unavailabl e Encounter Details Date Type Department Care Team (Latest Contact Info) Description 01/03/2000 13:08 EDT Hospital Encounter [facility] Emergency Department - Main [place] [address] [place], [place] [phone] Emergency, Default, MD Discharge Disposition: Home or [...]
--- OUTSIDE RECORDS SUMMARY | 2024-10-04 19:22 | XMS_ITS | Encounter Summary ---
Author Organization [facility] Address [address] [place] [address] Care Team Providers Care Credentialing Coordinator Name Role Phone Unavailable Primary Care Provider Unavailabl e Encounter Details Date Type Department Care Team (Latest Contact Info) Description 07/16/1999 11:25 EST - 07/16/1999 11:59 EST Hospital Encounter [address] [address] Jona Rizvi MD [address] [place] [phone] Discharge Disposition: Auto Discharge Social History Tobacco [...] Procedure Name Priority Date/Time Associated Diagnosis Comments FOOT 3 OR MORE VIEWS Routine 07/16/1999 12:00 EST ANKLE 2 VIEWS Routine 07/16/1999 11:58 EST documented in this encounter Results * FOOT 3 OR MORE VIEWS (07/16/1999 12:00 EST) Anatomical Region Laterality Modality Other 07/16/1999 12:0 0 EST Narrative 07/24/2009 11:35 EST LT ANKLE INJURY 07/15/99, PAIN MULTIPLE VIEW OF THE LEFT FOOT AND ANKLE. 07/16/99 12:00. There is soft tissue swelling but no fracture or dislocation. /vjc Procedure Note Finn Pelayo MD - 07/24/2009 LT ANKLE INJURY 07/15/99, PAIN MULTIPLE VIEW OF THE LEFT FOOT AND ANKLE. 07/16/99 12:00. There is soft tissue swelling but no fracture or dislocation. /vjc Jona Rizvi MD [facility] DIAGNOSTIC IMAGING ORDERA BLES Final Result * ANKLE 2 VIEWS (07/16/1999 11:58 EST) Anatomical Region Laterality Modality Other 07/16/1999 11:5 8 EST Narrative 07/24/2009 11:35 EST LT ANKLE INJURY 07/15/99, PAIN Procedure Note Finn Pelayo MD - 07/24/2009 LT ANKLE INJURY 07/15/99, PAIN Jona Rizvi MD [facility] DIAGNOSTIC IMAGING ORDERA BLES Final Result documented in this encounter Visit Diagnoses Not on filedocumented in this encounter
--- OUTSIDE RECORDS SUMMARY | 2024-10-04 19:22 | XMS_ITS | Encounter Summary ---
Author Organization [facility] Address [address] [place] [address] Care Team Providers Care Ophthalmic Technician Apprentice Name Role Phone Unavailable Primary Care Provider Unavailabl e Encounter Details Date Type Department Care Team (Late st Contact Info) Description 06/10/2010 Abstract [facility] Adult Primary Care - [address] [phone] Franco Saldivar MD 1 [facility] [address] [place] [address] Social History Tobacco Use Types Packs/Day Years [...] Diagnoses Not on filedocumented in this encounter Historical Medications * This list may reflect changes made after this encounter. paroxetine (PAXIL CR) 25 mg CR tablet Take 25 mg by mouth daily. added in this encounter
--- OUTSIDE RECORDS SUMMARY | 2024-10-04 19:22 | XMS_ITS | Encounter Summary ---
Author Organization [facility] Address [address] [place] [address] Care Team Providers Care Office Runner Name Role Phone Unavailable Primary Care Provider Unavailabl e Encounter Details Date Type Department Care Team (Late st Contact Info) Description 03/23/2006 15:49 EDT Hospital Encounter [address] [address] Claude Sanz MD [address] [phone] Haley Alfaro MD [address] [place] [address] Discharge Disposition: Auto Discharge Social History Tobacco [...]
--- OUTSIDE RECORDS SUMMARY | 2024-10-04 19:22 | XMS_ITS | Encounter Summary ---
Author Organization [facility] Address [address] [place] [address] Care Team Providers Care Agricultural Education Instructor Name Role Phone Jena TolliverP Primary Care Provider +1- [phone] Reason for Visit * Reason Onset Date Comments Appointment Related 2015 NO SHOW NPV LIDOFSKY Encounter Details Date Type Department Care Team ([facility] st Contact Info) Description 2015 Telephone [facility] Gastroenterology - [facility] [address] [place], [place] [phone] Claude Cassidy MD PhD [address] [facility], [address] [place] [address] Appointment Related (NO SHOW NPV LIDOFSKY) Social History Tobacco Use Types Packs/Day Years Used Date Smoking Tobacco: Never Assessed Sex and Gender Information Value Date Recorded Sex Assigned at Not on file Legal Sex Male 17:53 EST Gender Identity Not on file Sexual Orientation Not on file documented as of this encounter Miscellaneous Notes * Telephone Encounter - Anat Mahoney - 2015 1434 EDT PCP must contact Dr. Cassidy prior to rescheduling. Patient no showed their NPV today. documented in this encounter Plan of Treatment Not on file documented as of this encounter Visit Diagnoses Not on filedocumented in this encounter Care Teams Agricultural Education Instructor Relationship Specialty Start Date End Date [place] [address] PCP - General 05/01/15 documented as of this encounter
--- OUTSIDE RECORDS SUMMARY | 2024-10-04 19:22 | XMS_ITS | Encounter Summary ---
Author Organization [facility] Address [address] [place] [address] Care Team Providers Care Cable Braider Name Role Phone Jena Tolliver INDIVIDUAL SMALL GROUP INSTRUCTOR Primary Care Provider +1- [phone] Encounter Details Date Type Department Care Team (Late st Contact Info) Description 09/03/2022 Lab Requisition [facility] Pathology & Laboratory Medicine - [address] [address] Outr Resulting Lab, Provider Social History Tobacco [...] Procedure Name Priority Date/Time Associated Diagnosis Comments SYPHILIS SEROLOGY Routine 09/03/2022 10: 25 EST documented in this encounter Results * SYPHILIS SEROLOGY (09/03/2022 10:25 EST) Syphilis Serology Negative Negative 09/04/2022 9:44 EST [facility] Blood VENOUS BLOOD / Unknown 09/03/2022 10:25 EST 09/03/2022 21:53 EST us Provider Outr Resulting Lab IMMUNOLOGY AND SEROL OGY ORDERABLES Final Result [facility] [address] [place] [address] documented in this encounter Visit Diagnoses Not on filedocumented in this encounter Care Teams Cable Braider Relationship Specialty Start Date End Date Jena Tolliver FNP [address] [address] PCP - General 05/01/15 documented as of this encounter
--- OUTSIDE RECORDS SUMMARY | 2024-10-04 19:22 | XMS_ITS | Encounter Summary ---
Author Organization [facility] Address [address] [place] [address] Care Team Providers Care Retail Property Manager Name Role Phone Unavailable Primary Care Provider Unavailabl e Encounter Details Date Type Department Care Team (Late st Contact Info) Description 03/23/2006 Before PRISM Converted Visit (Maple) [facility] - Maple conversion [address] [place] [address] Haley Alfaro MD [address] [place] [address] Social History Tobacco Use Types Packs/Day Years Used Date Smoking Tobacco: Never Assessed Sex and Gender Information Value Date Recorded Sex Assigned at Not on file Legal Sex Male 17:53 EST Gender Identity Not on file Sexual Orientation Not on file documented as of this encounter Plan of Treatment Not on file documented as of this encounter Visit Diagnoses * Evaluation - Haley Alfaro - 09/07/2009 2230 EST Primary Care Internal Medicine [address] [place] [id number] NEW PATIENT EVALUATION - 03/23/2006 NEW PATIENT VISIT: FOCUSED ON MOOD SWINGS PATIENT PROFILE: This is a 20 year old gentleman who lived in [place] as a child and was diagnosed with ADHD when he was [age] years old at [facility]. In [place] he was treated with Ritalin for four to five years and Zoloft beginning at age 10. He stopped all medications at age 12 when he moved to a [facility] in [facility]. During his time [place] he abused alcohol, tobacco and marijuana. He has currently stopped drinking alcohol and stopped smokingmarijuana (4-5 months ago). Since this time he has moved back to [place] and is under house arrest for driving a stolen car. He claims to have bought the car but had no receipt. His chief complaint now is increased mood swings and anger. He gets mad over ???little things?? such as dropping a screwdriver or his children crying. Hes unable to sleep at night and always describes himself as ???always on the go?? . The frequency of these things occurred once every 4-5 days and that hasnow progressed to daily. He associates this increase with his stopping smoking marijuana. He is here now today expecting pharmacotherapy for these mood swings. He is adamantly against any form of counseling or evaluation by a psychiatrist. Review of systems are otherwise negative. Medications: The patient is currently on no medications. Allergies: Iodine/Betadine. This is described as rash and swelling. This occurred at age 4 and is per patients mother. The patient doesnt recall any shortness of breath or neck tightening. Past medical history: ADHD diagnosed at age 7. Past surgical history: None Family history: Father is 45 years old and has had premature coronary artery disease at age 34 (formyocardial infarction). Mom is age 49 and described as healthy. The patient has one brother age 24 and one sister age 30 who are healthy. 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 Currently under house arrestdue to driving a stolen car. Alcohol abuse: patient claims 40- 50 beers per day starting at age 12 and is currently abstinent from alcohol. He says he stopped drinking at age 19. Positive tobacco two packs a day for 12 years (24 pack years). Positive marijuana abuse described as every day and all day for seven years. The patient quit 5-6 months ago. #1 Health maintenance O: On examination blood pressure 1288/2, pulse 84 and regular, Temperature 99.2, respirations 20, weight 182.5. In general: The patient appears healthy with multiple Tattoos on neck, arms, chest and back. Normal body habitus. HEENT: anicteric, pupils equal, round, reactive to light, extra ocular movements are intact. External canals, tympanic membranes clear bilaterally, oropharynx clear. Neck supple, no thyromegaly, no carotid bruits. Lungs are clear to auscultation bilaterally with adequate and equal air entry. Heart is rate and rhythm regular with a normal S1 and S2 only. Neuro: Motor strength is 5/5 bilaterally, no overflow movements, no abnormal left and right discrimination. The patient is alert and oriented times three and knows who the president is. No lower extremity edema, distal pulses palpable 2+ bilaterally. A/P: 20 year old gentleman with behavioral/anxiety/mood disorder. The patient refuses counseling/therapist/psychiatric evaluation at this time although the patient was educated that counseling therapy is best for treating anger/impulse problems. Will try Zoloft 25 mg p.o. daily, initially 12 ?? p.o. daily times four days. Patient educated on side effects. HME: The patient abused tobacco. Has agreed to Habitrol. Was given smoking cessation handout for number to obtain free nicotine transdermal patches. 3. Skin: The patient does not use sunscreen and was advised to use every time when outside. ADDENDUM: 03/25/2006 P: Zoloft is not covered by patients Medicaid, will try Paxil instead 25 mg p.o. daily. Called [facility] in [place]. Follow up in a month. Signed by Micheline Lorenzo MD 04/29/2006 14:06 Tony Urias MBCHBUrsula A McVeigh, MD Dictated by: KOKO Dooley Micheline Lorenzo MD - KOKO Dooley A - lfb Job ID: [id number] Document ID: [id number] cc: Santhosh Licona MD documented in this encounter
--- NOTE | 2024-10-04 19:27 | W.ED.GENAD ---
Discharge Plan Disposition Patient Disposition: Home Condition: Stable Discharge Details Clinical Impression: Gastritis Primary Care Provider: None,None ED Provider: Kaylin Ramirez Home Meds and New Rx's Prescriptions: No Action No Known Home Meds Discharge Instructions Instructions: Gastritis ED Additional Instructions: At this time your potassium level has improved to normal. You may continue to have abdominal cramping and the urge to have a bowel movement which is normal after the medication you received. Please increase oral fluids including water. You do have an inflammation of the lining of your stomach. Please follow-up with general surgery to have an endoscopy or gastroenterology at [facility]. Hill diet for the next few days, increase as tolerated stay away from anything fried fatty spicy or dairy. Follow up with primary care provider in 3-5 days. Return to ED sooner if any worsening or concerns. Thank you for allowing us to care for you today. Referrals: [facility] [Outside] - 2 weeks (Gastroenterology) Chava Alfaro MD [ [facility] STAFF PHYSICIAN] - 1 week (For endoscopy) HPI General Mode of arrival: ambulatory. Date/Time Provider Initiated Documentation: 10/04/24 19:18. Limitations to Documentation: no limitations. Information obtained by: patient, RN notes reviewed and old records reviewed. HPI Narrative: Patient seen here for the second time in the last few hours. Patient left AMA earlier. He reports that he has not had a bowel movement since receiving Kayexalate from his earlier visit. He is having abdominal cramping. He appears calm at this time and is slightly tearful. He is agreeable to have his labs redrawn and get some IV fluids. I did discuss his CT results with him and the thickening of his lining of the stomach and the need for follow-up for an endoscopy he verbalizes understanding. Related Data Home Medications ?Medication ?Instructions ?Recorded ?Confirmed Unknown [No Known Home Meds] 10/04/24 10/04/24 Allergies Allergy/AdvReac Type Severity Reaction Status Date / Time iodine Allergy Severe Anaphylaxis Unverified 10/04/24 19:16 codeine AdvReac Mild vomiting Unverified 10/04/24 19:16 General Stated Complaint: Abd Prob ANH: 3 Review of Systems All systems reviewed & are unremarkable except as noted in HPI and below Gastrointestinal Gastrointestinal: Reports abdominal pain Exam Narrative Exam Narrative: Constitutional: Alert and oriented x3. Appears stated age. Normal body habitus. Head: Normocephalic, no trauma. Eyes: Pupils PERRL, Red reflex noted, EOM's intact. Eyelids symmetrical without lesions, discharge, or swelling. ENT: Bilateral TM's WNL, External ear normal to inspection, no mastoid TTP, swelling, or erythema, Nasal turbinates WNL, no nasal discharge. Normal dentition, Posterior pharynx WNL, no exudate. Chest: RRR, Normal S1, S2, distal pulses intact. Resp: Lungs clear to auscultation bilaterally, no wheezes, rales, or rhonchi. Abdomen: Soft, non-distended, Normoactive bowel sounds all 4 quads. Musculoskeletal: Normal gait, Moves all 4 extremities without difficulty. Skin: No suspicious rashes or lesions. Capillary refill less than 2 sec. Neurologic: Cranial nerves II-XII intact. Alert and oriented x 3. Motor: No deficits noted. Sensory: Intact bilaterally all 4 extremities. Hematologic/Lymphatic: No ecchymosis, no lymphadenopathy. Course Vital Signs Vital signs: Vital Signs Temperature 36.4 C 10/04/24 19:09 Pulse 100 H 10/04/24 19:09 Respiratory Rate 18 10/04/24 19:09 Blood Pressure 139/88 10/04/24 19:09 Pulse Oximetry 100 10/04/24 19:09 Temperature 36.4 C 10/04/24 19:09 Temperature Source Oral 10/04/24 19:09 Pulse 100 H 10/04/24 19:09 Respiratory Rate 18 10/04/24 19:09 Blood Pressure 139/88 10/04/24 19:09 Blood Pressure Position Sitting 10/04/24 19:09 Pulse Oximetry 100 10/04/24 19:09 Oxygen Delivery Method Room Air 10/04/24 19:09 Oxygen Flow Rate 0 10/04/24 19:09 Pain Level 3 10/04/24 19:09 Medical Decision Making Patient seen here for the second time in the last few hours. Patient left AMA earlier. He reports that he has not had a bowel movement since receiving Kayexalate from his earlier visit. He is having abdominal cramping. He appears calm at this time and is slightly tearful. He is agreeable to have his labs redrawn and get some IV fluids. I did discuss his CT results with him and the thickening of his lining of the stomach and the need for follow-up for an endoscopy he verbalizes understanding. IV, BMP, GI cocktail and a liter of fluid ordered. Potassium is improved at 3.6, sodium 143 calcium is 10.3. Will encourage increased oral fluids and follow-up with general surgery for endoscopy due to the thickened stomach lining. Discussed results with patient who verbalized understanding. Patient discharged in hemodynamically stable condition. This text was generated using Achieved[employer]coation system, please disregard any oddities of phrase or misspellings. Medical Records Medical records reviewed: Yes I reviewed the patient's medical records. Lab Data Lab results reviewed: Yes I reviewed the patient's lab results. Labs: Laboratory Tests Range/Units 10/04/24 19:43 Sodium (136-145) mmol/L 143 Potassium (3.5-5.1) mmol/L 3.6 D Chloride (98-107) mmol/L 105 Carbon Dioxide (21.0-32.0) mmol/L 29.9 Anion Gap (3-11) mmol/L 8.1 BUN (7-18) mg/dL 21 H Creatinine (0.70-1.30) mg/dL 1.2 Est GFR (CKD-EPI 2020) (mL/min/1.73m2) 77.92 Glucose (74-106) mg/dL 105 Calcium (8.5-10.1) mg/dL 10.3 H Quality:SDOH Health Related Social Needs: Health related social needs housing instability, housed, with risk of homelessness (Z59.811) PFSH All Active Problems (Updated 10/04/24 @ 20:30 by Kaylin Ramirez NP) Gastritis (Acute) Abdominal pain of unknown cause (Acute) Hyperkalemia (Acute) Hypercalcemia (Acute) Abscess, dental (Acute) Scrotal pain (Acute) Medical History (Updated 10/04/24 @ 20:30 by Kaylin Ramirez NP) Chronic abdominal pain Polysubstance abuse Lower back pain Sciatica Hepatitis C antibody test positive Acute stress reaction Blurred vision Rectal bleeding Abnormal weight loss Social History Smoking/Tobacco Use Status: Current every day Tobacco Type: cigarettes Smoking packs per day: 0.5 Smoking cigarettes per day: 10.0 and e-cigarettes Smoking risk assessment performed?: Yes Alcohol Intake: current Alcohol Intake frequency: a few times a month Alcohol type: beer Drug use: Daily Substance use type: former substance user and marijuana Housing: apartment Do you feel safe at home: Yes Do you feel safe in your relationship?: Yes
[2024-10-04] MEDS: Lidocaine 2% Viscous 15 ML CUP (19:52)
[2024-10-04] MEDS: Mylanta Suspension 30 ML CUP (19:52)
[2024-10-04 20:04] LABS: Anion Gap 8.1 mmol/L (3-11); BUN 21 mg/dL (7-18); CO2 29.9 mmol/L (21.0-32.0); CREATININE 1.2 mg/dL (0.70-1.30); Calcium 10.3 mg/dL (8.5-10.1); Chloride 105 mmol/L (98-107); Estimated GFR 77.92 (mL/min/1.73m2); Glucose 105 mg/dL (74-106); Sodium 143 mmol/L (136-145)
[2024-10-04 20:12] LABS: Potassium 3.6 mmol/L (3.5-5.1)
[2024-10-04] MEDS: Normal Saline 500 ML 1000 ML IV (20:34)
== END 2024-10-04 20:49 | disposition home or self-care (01) ==
PROVIDERS: Emergency Provider Registered Nurse Emergency
DX: K29.70 Gastritis, unspecified, without bleeding (principal); F17.210 Nicotine dependence, cigarettes, uncomplicated; F17.290 Nicotine dependence, other tobacco product, uncomplicated
CPT/HCPCS: 80048; 99283

== ENCOUNTER 2024-10-05 12:19 | Emergency (ER) | payer MEDICAID, SELFPAY ==
--- NOTE | 2024-10-05 12:15 | RT.EKG_ITS ---
APPROVED REPORT Exam: Resting ECG Reason for Exam: palpatations Patient Location: E HR:96 bpm ECG Measurements Heart Rate 96 AXIS MD 127 P 81 QRSd 96 QRS 94 QT 338 T -1 QTc 428 Conclusion Sinus rhythm...normal P axis, V-rate 60- 99
[2024-10-05 12:24] VITALS: BP 139/87; PULSE 99; RESP 18; TEMP 36.6; O2SAT 97
--- NOTE | 2024-10-05 12:28 | ED.GENADUL_ITS ---
Discharge Plan Disposition Patient Disposition: Home Condition: Stable Discharge Details Clinical Impression: Palpitations Primary Care Provider: None,None ED Provider: Kaylin Ramirez Home Meds and New Rx's Prescriptions: No Action No Known Home Meds Discharge Instructions Instructions: Palpitations ED Referrals: Pema Lynne MD [ [facility] STAFF PHYSICIAN] - 2 weeks (palpitations) Lulu Gore RADAR REPAIRER [NURSE PRACTITIONER] - 1 week (Establish as PCP) HPI General Mode of arrival: ambulatory . Date/Time Provider Initiated Documentation: 10/05/24 12:22 . Limitations to Documentation: no limitations . Information obtained by: patient, RN notes reviewed and old records reviewed . HPI Narrative: 39-year-old male presents to the ER with a chief complaint of palpitations which occurred while at rest prior to arrival. He reports that he checked his heart rate with a oximeter that he had at home and it was 130. He reports he can feel his heart beating in his chest. Upon initial presentation he reports he feels much better he was seen here twice yesterday. Had some high potassium which he was treated for. He reports that he did have a stool from the Kayexalate however it was just mostly liquid. Related Data Home Medications ?Medication ?Instructions ?Recorded ?Confirmed Unknown [No Known Home Meds] 10/04/24 10/05/24 Allergies Allergy/AdvReac Type Severity Reaction Status Date / Time iodine Allergy Severe Anaphylaxis Unverified 10/05/24 12:30 codeine AdvReac Mild vomiting Unverified 10/05/24 12:30 General ANH: 3 Review of Systems All systems reviewed & are unremarkable except as noted in HPI and below Cardiovascular Cardiovascular: Reports as per HPI and Reports rapid heart rate Exam Narrative Exam Narrative: Constitutional: Alert and oriented x3. Appears stated age. Normal body habitus. Head: Normocephalic, no trauma. Eyes: Pupils PERRL, Red reflex noted, EOM's intact. Eyelids symmetrical without lesions, discharge, or swelling. ENT: Bilateral TM's WNL, External ear normal to inspection, no mastoid TTP, swelling, or erythema, Nasal turbinates WNL, no nasal discharge. Normal dentition, Posterior pharynx WNL, no exudate. Chest: RRR, Normal S1, S2, distal pulses intact. Resp: Lungs clear to auscultation bilaterally, no wheezes, rales, or rhonchi. Abdomen: Soft, non-distended, Normoactive bowel sounds all 4 quads. Musculoskeletal: Normal gait, Moves all 4 extremities without difficulty. Skin: No suspicious rashes or lesions. Capillary refill less than 2 sec. Neurologic: Cranial nerves II-XII intact. Alert and oriented x 3. Motor: No deficits noted. Sensory: Intact bilaterally all 4 extremities. Hematologic/Lymphatic: No ecchymosis, no lymphadenopathy. Medical Decision Making 39-year-old male presents to the ER with a chief complaint of palpitations which occurred while at rest prior to arrival. He reports that he checked his heart rate with a oximeter that he had at home and it was 130. He reports he can feel his heart beating in his chest. Upon initial presentation he reports he feels much better he was seen here twice yesterday. Had some high potassium which he was treated for. He reports that he did have a stool from the Kayexalate however it was just mostly liquid. EKG was reviewed by myself and Dr. Bermeo ER attending, old EKG available for review, no peaked T waves, normal sinus rhythm. No ischemic changes. Workup unremarkable, CBC shows no leukocytosis, CMP shows potassium 3.8 BUN 20 creatinine 1.0 calcium 9.8 initial troponin 6 which is within normal limits TSH is 0.50. I did discuss the lab results with patient who verbalized understanding. It does sound like a portion of anxiety. I did encourage him to follow-up with his PCP verbalizes understanding patient has been cardiac monitored for his entire stay and has maintained normal sinus rhythm. This text was generated using Scratch Hardation system, please disregard any oddities of phrase or misspellings. Lab Data Lab results reviewed: Yes I reviewed the patient's lab results. Labs: Laboratory Tests Range/Units 10/05/24 13:02 WBC (4.4-10.8) 10^3/uL 7.85 RBC (4.36-5.78) 10^6/uL 5.10 Hgb (13.5-17.5) g/dL 15.6 Hct (40.0-50.0) % 45.8 MCV (80-95) fL 90 MCH (27.0-33.0) pg 30.6 MCHC (32.0-36.0) % 34.1 RDW (11.8-14.1) % 12.3 Plt Count (130-400) 10^3/uL 204 MPV (8.0-11.0) fL 9.6 Immature Gran % % 0.3 Neutrophils % % 71.2 Lymphocytes % % 20.0 Monocytes % % 5.9 Eosinophils % % 1.7 Basophils % % 0.9 Nucleated RBC % (0.0-0.3) % 0.0 Absolute Neutrophils (1.2-6.7) 10^3/uL 5.60 Absolute Lymphocytes (1.2-3.4) 10^3/uL 1.57 Absolute Monocytes (0.1-0.8) 10^3/uL 0.46 Absolute Eosinophils (0.0-0.7) 10^3/uL 0.13 Absolute Basophils (0.0-0.2) 10^3/uL 0.07 Sodium (136-145) mmol/L 141 Potassium (3.5-5.1) mmol/L 3.8 Chloride (98-107) mmol/L 103 Carbon Dioxide (21.0-32.0) mmol/L 30.9 Anion Gap (3-11) mmol/L 7.1 BUN (7-18) mg/dL 20 H Creatinine (0.70-1.30) mg/dL 1.0 Est GFR (CKD-EPI 2020) (mL/min/1.73m2) 96.97 Glucose (74-106) mg/dL 87 Calcium (8.5-10.1) mg/dL 9.8 Magnesium (1.8-2.4) mg/dL 1.8 Total Bilirubin (0.2-1.0) mg/dL 0.97 AST (15-37) U/L 19 ALT (16-63) U/L 22 Alkaline Phosphatase (46-116) U/L 80 Troponin I (<or=76) ng/L 6 Total Protein (6.4-8.2) g/dL 7.7 Albumin (3.4-5.0) g/dL 4.3 TSH (0.36-3.74) uIU/mL 0.50 Quality:SDOH Health Related Social Needs: Health related social needs housing instability, house d, with risk of homelessness (Z59.811) PFSH All Active Problems (Updated 10/05/24 @ 13:51 by Kaylin Ramirez NP) Palpitations (Acute) Gastritis (Acute) Abdominal pain of unknown cause (Acute) Hyperkalemia (Acute) Hypercalcemia (Acute) Abscess, dental (Acute) Scrotal pain (Acute) Medical History (Updated 10/05/24 @ 13:51 by Kaylin Ramirez NP) Chronic abdominal pain Polysubstance abuse Lower back pain Sciatica Hepatitis C antibody test positive Acute stress reaction Blurred vision Rectal bleeding Abnormal weight loss Social History Smoking/Tobacco Use Status: Current every day Tobacco Type: cigarettes Smoking packs per day: 0.5 Smoking cigarettes per day: 10.0 Smoking risk assessment performed?: Yes Alcohol Intake: current Alcohol Intake frequency: a few times a month Alcohol type: beer Drug use: Daily Substance use type: former substance user and marijuana Housing: apartment Do you feel safe at home: Yes Do you feel safe in your relationship?: Yes
[2024-10-05 13:08] LABS: Abs Immature Grans 0.02 10^3/uL (0.0-0.06); Absolute Basophil Count 0.07 10^3/uL (0.0-0.2); Absolute Eosinophil Count 0.13 10^3/uL (0.0-0.7); Absolute Lymphocyte Count 1.57 10^3/uL (1.2-3.4); Absolute Monocyte Count 0.46 10^3/uL (0.1-0.8); Basophils % 0.9 %; Eosinophils % 1.7 %; HCT 45.8 % (40.0-50.0); HGB 15.6 g/dL (13.5-17.5); Immature Grans % 0.3 %; MCH 30.6 pg (27.0-33.0); MCHC 34.1 % (32.0-36.0); MCV 90 fL (80-95); MPV 9.6 fL (8.0-11.0); Monocytes % 5.9 %; Neutrophils % 71.2 %; Platelet Count 204 10^3/uL (130-400); RDW 12.3 % (11.8-14.1); WBC 7.85 10^3/uL (4.4-10.8)
[2024-10-05 13:37] LABS: ALT 22 U/L (16-63); AST 19 U/L (15-37); Albumin 4.3 g/dL (3.4-5.0); Alkaline Phosphatase 80 U/L (46-116); Anion Gap 7.1 mmol/L (3-11); BUN 20 mg/dL (7-18); Bilirubin, Total 0.97 mg/dL (0.2-1.0); CO2 30.9 mmol/L (21.0-32.0); Calcium 9.8 mg/dL (8.5-10.1); Chloride 103 mmol/L (98-107); Estimated GFR 96.97 (mL/min/1.73m2); Glucose 87 mg/dL (74-106); Magnesium 1.8 mg/dL (1.8-2.4); Potassium 3.8 mmol/L (3.5-5.1); Sodium 141 mmol/L (136-145); Total Protein 7.7 g/dL (6.4-8.2); Troponin I 6 ng/L (<or=76)
[2024-10-05 14:03] VITALS: BP 126/77; PULSE 75; RESP 20; O2SAT 100
== END 2024-10-05 14:03 | disposition home or self-care (01) ==
PROVIDERS: Emergency Provider Registered Nurse Emergency
DX: R00.2 Palpitations (principal); F17.210 Nicotine dependence, cigarettes, uncomplicated
CPT/HCPCS: 80053; 93005; 99284; 83735; 84443; 84484; 85025; 93010

== ENCOUNTER 2024-10-14 09:44 | Day surgery (SDC) | payer MEDICAID, SELFPAY ==
--- NOTE | 2024-10-13 15:24 | PDOC.DSDIS_ITS ---
Date of service: 10/14/24 Discharge Plan Disposition Patient Disposition: Home Condition: Good Discharge Details Reason For Visit: diagnostic EGD Attending Provider: Chava Alfaro Primary Care Provider: NEGRA LEE Home Meds and New Rx's Prescriptions: No Action No Known Home Meds Discharge Instructions Additional Instructions: Nini Adkins you are comfortable during the procedure today. Everything went very smoothly. You do have a very little bit of irregularity at the connection between your esophagus and your stomach, which is also known as the GE junction. It appears consistent with some mild gastroesophageal reflux disease. This is separate from the area that was seen on your CT scan. There are no worrisome features to this at the current time, and so long as you do not have any major symptoms of gastroesophageal reflux disease, I do not think you need to do anything differently. With regards to your stomach, that all appears totally normal. As we discussed before hand, I did some biopsies that a few different places in the stomach, including the area that was described in the CT scan to make sure that there is nothing that I am missing by the naked eye exam. This biopsy results will take a week or 2 to get back, and soon as I have them, my office will let you know if they turn anything up. Putting this altogether, however, I suspect the abnormalities on your CT scan were really just secondary to your stomach being emptied at the time, and artifact of the test itself. If you need anything, or have any questions, please do not hesitate to ask, otherwise I will let you know once the biopsy results are available. 1. If tolerated, consume a soft, low fiber diet for 1-2 days. [address] Do not drive, drink alcohol, operate machinery, make critical decisions, or do activities that require coordination or balance for 24 hours. 3. You may experience a sore throat for 24 to 48 hours. You may use throat lozenges or gargle with warm salt water to relieve the discomfort. 4. Because air was put into your stomach during the procedure, you may experience some belching. 5. Go directly to the emergency room if you notice any of the following: Develop chills (warm to touch), or if you have a thermometer and your temperature is above 101 Difficulty breathing or difficultly swallowing Persistent vomiting Severe abdominal pain, other than gas cramps Severe chest pain Black, tarry stools Any bleeding ? exceeding one tablespoon 6. Call your physician if the site where your intravenous was started becomes red, swollen, painful, and warm to touch. 7. Your physician has reviewed your pre-procedure medications. Please continue to take those medications as previously ordered. You will be given specific inf ormation/education regarding any changes to your medications before leaving. Activity:: Activity as Tolerated Diet:: As Tolerated Discharge Orders Discharge Orders: Discharge Order (Routine); Ordered 10/13/24 Ordered By: Chava Alfaro DS: Diagnosis Discharge Diagnosis (1) Gastritis: Status: Acute Asessment and Plan: Follow-up on biopsy results
--- NOTE | 2024-10-13 15:25 | W.PM.ENDDOP ---
Date of service: 10/14/24 Time of Service: 12:16 Endoscopy Report DATE OF PROCEDURE: 10/14/24 PRE-OP DIAGNOSIS: Gastritis POST-OP DIAGNOSIS: other (Normal-appearing EGD) PROCEDURE: EGD with biopsies SURGEON: Chava Alfaro ANESTHESIA TYPE: General:No Airway ESTIMATED BLOOD LOSS: 5 PATHOLOGY: other (Random biopsies of gastric antrum, body, and fundus) COMPLICATIONS: None DISPOSITION: same day INDICATIONS: Jed is a 39 year old man who underwent CT scan for abdominal pain. He was found to have thickening of the gastric fundus and body and he was advised to follow up with an EGD FINDINGS: Mild irregularity of the GE junction at 42 cm from the incisors, otherwise negative appearing EGD PROCEDURE DESCRIPTION: After the initiation of anesthesia, and with the assistance of a bite block, I advanced a standard gastroscope through the mouth past the hypopharynx and into the esophagus.? Under the direct vision of the scope, I advanced down the esophagus towards the stomach.? The upper, mid, and lower esophagus were all normal-appearing. There is very mild irregularity of Z-line at the GE junction around 42 cm from the incisors. Narrowband imaging was used to assist with the analysis. There is no evidence of any Wood's esophagus. I advanced down into the stomach proper and insufflated into the rugae were obliterated. I performed retroflexion. There was no evidence of any hiatal hernia. The gastric cardia, fundus, body, and antrum all appeared totally normal. I did not see any signs of any active gastritis or any other secondary signs of peptic ulcer disease. I am able to advance down around the incisura angularis and across the pylorus into the duodenal bulb with ease. The duodenal bulb and first and second portions of the duodenum were all normal and healthy appearing as well. I then brought the camera back up into the stomach and perform some nondirected cold forceps biopsies of the gastric antrum, gastric body, and all around the fundus, which was the area described as abnormal on the CT scan. Again, by naked eye exam, all of the mucosa looks totally normal and healthy. The biopsy sites were clean, and there was minimal bleeding. Once this was complete, the stomach was emptied all the insufflation, and the camera was brought back out along the length of the esophagus 1 last time. Again, no other abnormalities were appreciated.
[2024-10-14 10:17] VITALS: BP 128/89; PULSE 77; RESP 16; TEMP 36.4; O2SAT 100
[2024-10-14] MEDS: Lactated Ringers 1,000 ML 80 ML IV (10:43)
--- NOTE | 2024-10-14 10:53 | W.ANESPRE ---
General Info Date of Service Date Performed: 10/14/24 Height: 5 ft 10 in Weight: 76.1 kg Body Mass Index (BMI): 24.0 Surgical Procedure: Operation Date: 10/14/24 11:20 Proposed Procedure Side Surgeon p Gastroscopy Chava Alfaro MD Meds Allergies and Home Medications Allergies Allergy/AdvReac Type Severity Reaction Status Date / Time iodine Allergy Severe Anaphylaxis Verified 10/14/24 10:25 codeine AdvReac Mild vomiting Verified 10/14/24 10:25 Home Medication ?Medication ?Instructions ?Recorded Unknown [No Known Home Meds] 10/04/24 Current Visit Medications: Current Medications Generic Name Dose Route Start Last Admin Trade Name Freq PRN Reason Stop Dose Admin Ringer's Solution 1,000 mls @ 80 mls/hr 10/14/24 06:00 10/14/24 10:43 IV 10/14/24 23:59 80 mls/hr INFUSION GAYATHRI Administration IV Miscellaneous Supplies 1 each 10/14/24 06:00 Iv Access IV 10/14/24 23:59 DIRECTED GAYATHRI Ondansetron HCl 4 mg 10/13/24 15:27 Ondansetron 4 Mg/2 Ml Vial IVP 11/12/24 15:26 Q4H PRN PRN Nausea / Vomiting Sodium Chloride 0 ml 10/14/24 06:00 Normal Saline Flush 10 Ml Syr IV 10/14/24 23:59 PRN PRN Sodium Chloride 0 ml 10/14/24 06:00 Normal Saline 10 Ml Vial IJ 10/14/24 23:59 DIRECTED PRN Sterile Water 0 ml 10/14/24 06:00 Water,Injection,Sterile 10 Ml Vial IJ 10/14/24 23:59 DIRECTED PRN PFSH Active Problems Active Problems: Problem Status Onset Code Palpitations Acute R00.2 Gastritis Acute K29.70 Abdominal pain of unknown cause Acute R10.9 Hyperkalemia Acute E87.5 Hypercalcemia Acute E83.52 Abscess, dental Acute K04.7 Scrotal pain Acute N50.82 Medical History Medical History Chronic abdominal pain Polysubstance abuse Lower back pain Sciatica Hepatitis C antibody test positive Acute stress reaction Blurred vision Rectal bleeding Abnormal weight loss Tobacco Smoking/Tobacco Use Status: Former Tobacco Use Alcohol Alcohol Intake: former Substance Use Substance use: Current Sobriety Substance use type: former substance user Vital Signs and Lab Results Vital Signs Most Recent Vital Signs in EMR: Most Recent Vital Signs Temp Pulse Resp BP Pulse Ox 36.4 C L 77 16 128/89 100 10/14/24 10:17 10/14/24 10:17 10/14/24 10:17 10/14/24 10:17 10/14/24 10:17 Lab Results Blood Type / Crossmatch: No Data to Display Complete Blood Count: White Blood Count 7.85 10^3/uL (4.4-10.8) 10/05/24 13:02 Red Blood Count 5.10 10^6/uL (4.36-5.78) 10/05/24 13:02 Hemoglobin 15.6 g/dL (13.5-17.5) 10/05/24 13:02 Hematocrit 45.8 % (40.0-50.0) 10/05/24 13:02 Platelet Count 204 10^3/uL (130-400) 10/05/24 13:02 Venous Blood Lactate 1.1 mmol/L (<or=2.0) 10/04/24 13:27 Complete Metabolic Panel: Sodium 141 mmol/L (136-145) 10/05/24 13:02 Potassium 3.8 mmol/L (3.5-5.1) 10/05/24 13:02 Chloride 103 mmol/L (98-107) 10/05/24 13:02 Carbon Dioxide 30.9 mmol/L (21.0-32.0) 10/05/24 13:02 BUN 20 mg/dL (7-18) H 10/05/24 13:02 Creatinine 1.0 mg/dL (0.70-1.30) 10/05/24 13:02 Est GFR (CKD-EPI 2020) 96.97 (mL/min/1.73m2) 10/05/24 13:02 Magnesium 1.8 mg/dL (1.8-2.4) 10/05/24 13:02 Calcium 9.8 mg/dL (8.5-10.1) 10/05/24 13:02 Albumin 4.3 g/dL (3.4-5.0) 10/05/24 13:02 Glucose 87 mg/dL (74-106) 10/05/24 13:02 Liver Function Panel: Alanine Aminotransferase (ALT/SGPT) 22 U/L (16-63) 10/05/24 13:02 Aspartate Amino Transf (AST/SGOT) 19 U/L (15-37) 10/05/24 13:02 Coagulation Panel: No Data to Display Cardiac Panel: Troponin I 6 ng/L (<or=76) 10/05/24 Arterial Blood Gas: No Data to Display Venous Blood Gas: No Data to Display Pancreas Panel: Lipase 33 U/L (<78) 10/04/24 13:27 Thyroid Panel: Thyroid Stimulating Hormone (TSH) 0.50 uIU/mL (0.36-3.74) 10/05/24 13:02 Infectious Disease: No Data to Display Blood Cultures: No Data to Display Toxicology Panel: No Data to Display Anesthesia Assessment and Plan Anesthesia History Personal History: No History of Anesthesia Complications Family History: No Family History of Anesthesia Complications Exercise Tolerance Exercise Tolerance: Metabolic Equivalents>4 Pertinent Negatives Pertinent Negatives: No Symptoms of GERD, No Major Cardiovascular Symptoms or Complaints, No Major Pulmonary Symptoms or Complaints and No History of CVA/TIA Cardiac & Pulmonary Exam Cardiac Exam: Normal S1/S2 Heart Sounds Pulmonary Exam: Clear Bilateral Breath Sounds Implantable Cardiac Device Does patient have a Pacemaker or an ICD?: No Airway Exam Known Difficult Airway: No Mallampati Class: 1 Mouth Opening: Normal (> 3cm) Thyromental Distance: Greater than 3 cm Neck Range of Motion: Full ROM Neck Circumference: Normal Teeth Condition: Normal Dentition ASA Classification ASA Score: ASA 2 Emergency Case?: No NPO Status NPO Status: NPO Clears >2 hours, Solids >8 hours Anesthesia Plan Resuscitation Status: Full Code Anesthesia Technique: General Anesthesia Airway Planned: Natural Airway Monitors Used: Standard Monitors
[2024-10-14 10:54] VITALS: BMI 24.0
--- NOTE | 2024-10-14 12:04 | STOM_PTH ---
PATIENT: Jed Penn LOC: [facility] U#:[id number] AGE/SX: 39/M ROOM: RE10/14/[address]: Chava Alfaro MD : 1985 BED: DIS: 10/14/2024 SPEC #: [id number] RECD: 10/14/24 12:40 STATUS: RENETTA RE #: [id number] ANNIE: 10/14/24 12:[address]: Chava Alfaro DEPT: Surgical Specimen RECD BY: Loly Muro ENTERED: 10/14/24 12:41 SP TYPE: STOMACH OTHR DR: NEGRA LEE, WALTER Tissues: 1 - STOMACH BIOPSY 2 - STOMACH BIOPSY 3 - STOMACH BIOPSY Procedures: GROSS AND MICRO LEVEL 4 Comments: [id number]
[2024-10-14 12:15] VITALS: BP 119/80; PULSE 105; RESP 18; TEMP 36.3; O2SAT 95
--- NOTE | 2024-10-14 12:20 | W.ANESPOSTOP ---
Postoperative Evaluation Date, Time and Location Date Performed: 10/14/24 Time Performed: 12:20 Patient Location: Day Surgery Unit Vital Signs Most Recent Imported Vital Signs: Most Recent Vital Signs Temp Pulse Resp BP Pulse Ox 36.3 C L 105 H 18 119/80 95 10/14/24 12:15 10/14/24 12:15 10/14/24 12:15 10/14/24 12:15 10/14/24 12:15 Pain Score Most Recent Pain Score: Most Recent Pain Score Pain Level 2 10/14/24 10:17 Assessment Mental Status: Awake (Alert & Oriented to Patient Baseline) Airway and Respiratory Function: Patent airway with normal (patient baseline) respiratory exam Cardiovascular Function: Hemodynamically Stable Hydration Status: Adequately Hydrated Nausea & Vomiting: No Nausea or Vomiting Pain: Pt. Denies Any Pain Peripheral Nerve Block: Patient did not receive a nerve block
[2024-10-14 12:48] VITALS: BP 126/92; PULSE 73; RESP 20; TEMP 36.1; O2SAT 99
== END 2024-10-14 13:00 | disposition home or self-care (01) ==
LOC: SUR 09:44
PROVIDERS: PCP Nurse Practitioner Family; Visit Provider Surgery
PROC: 0DJ68ZZ Inspection of Stomach, Via Natural or Artificial Opening Endoscopic (ICD-10-PCS; CPT 43235; principal; 2024-10-14 11:15)
DX: K29.70 Gastritis, unspecified, without bleeding (principal)
CPT/HCPCS: 43239; 88305; J2003; J2704

== ENCOUNTER 2024-11-03 15:18 | Outpatient (REF) | payer MEDICAID, SELFPAY ==
[2024-11-03 19:23] LABS: ALT 19 U/L (16-63); AST 25 U/L (15-37); Albumin 4.8 g/dL (3.4-5.0); Alkaline Phosphatase 83 U/L (46-116); Anion Gap 8.3 mmol/L (3-11); BUN 10 mg/dL (7-18); Bilirubin, Total 0.77 mg/dL (0.2-1.0); CO2 29.7 mmol/L (21.0-32.0); Calcium 10.5 mg/dL (8.5-10.1); Calculated LDL 143 mg/dL (<100); Chloride 105 mmol/L (98-107); Cholesterol 229 mg/dL (<200); Estimated GFR 96.97 (mL/min/1.73m2); Glucose 89 mg/dL (74-106); HDL Cholesterol 70 mg/dL (40-60); Potassium 4.3 mmol/L (3.5-5.1); Sodium 143 mmol/L (136-145); Total Protein 7.8 g/dL (6.4-8.2); Triglyceride 83 mg/dL (<150)
[2024-11-07 12:15] LABS: Hepatitis C Ab w Rflx HCV PCR Reactive (Negative)
[2024-11-09 12:10] LABS: HCV RNA Qualitative Undetected (Undetected)
== END 2024-11-03 15:19 | disposition home or self-care (01) ==
LOC: NCHCN 15:18
PROVIDERS: PCP Nurse Practitioner Family; Visit Provider Nurse Practitioner Family
DX: Z00.00 Encounter for general adult medical examination without abnormal findings (principal)
CPT/HCPCS: 80053; 80061; 86803; 87522

== ENCOUNTER 2024-11-07 18:07 | Emergency (ER) | payer MEDICAID, SELFPAY ==
[2024-11-07 18:09] VITALS: BP 149/86; PULSE 78; RESP 16; TEMP 36.5; O2SAT 99
--- NOTE | 2024-11-07 19:26 | W.ED.GENAD ---
Discharge Plan Disposition Patient Disposition: Home Condition: Stable Discharge Details Clinical Impression: Abdominal pain of unknown cause Primary Care Provider: NEGRA LEE ED Provider: Walt Tran Home Meds and New Rx's Prescriptions: No Action famotidine 40 mg tablet 40 mg PO DAILY Patient Comments: TAKE ONE TABLET BY MOUTH EVERY DAY Discharge Instructions Instructions: Abdominal Pain, Adult ED Additional Instructions: You were seen in the emergency department for your left-sided abdominal pain of unknown cause there is no evidence of any abnormality on your CT scan and your labs show no evidence of infection, significant bleeding with anemia, kidney or liver abnormalities, any small bowel obstruction or bowel inflammation, there is no evidence of colitis or inflammatory bowel disease, please seek an outpatient referral for colonoscopy for your minor rectal bleeding. Please return to the emergency department for any severe increase in bleeding, weakness, or any other emergent concern. Referrals: NEGRA LEE, [employer]EARCH SCIENTIST [Primary Care Provider] - Discharge Data Discharge Date/Time-TO BE ENTERED AT DEPARTURE: 11/07/24 21:30 HPI General Date/Time Provider Initiated Documentation: 11/07/24 18:17. HPI Narrative: 39 year-old male presents to ED today by POV/ambulating with a chief complaint of LLQ abdominal pain, occasional bloody stools, hard stools with onset this morning. Quality described as soreness in left lower abdomen, no radiation to nausea/vomiting, fever, black stools, cough, shortness of breath, chest pain. Severity is described as moderate. Palliating factors include nothing specific attempted. Provoking factors include nothing specific. Events leading up to the incident/Associated Symptoms: Patient endorses history of diverticulosis. Patient not anticoagulated. Related Data Home Medications ?Medication ?Instructions ?Recorded ?Confirmed famotidine 40 mg tablet 40 mg PO DAILY 11/07/24 11/07/24 Allergies Allergy/AdvReac Type Severity Reaction Status Date / Time iodine Allergy Severe Anaphylaxis Verified 11/07/24 18:16 codeine AdvReac Mild vomiting Verified 11/07/24 18:16 General Stated Complaint: Abd Prob ANH: 3 Review of Systems All systems reviewed & are unremarkable except as noted in HPI and below Exam Narrative Exam Narrative: GENERAL APPEARANCE: Well-nourished, non-toxic, awake and alert, atraumatic, no acute distress. SKIN: Warm, pink, dry, intact, without rashes/lesions/ulcerations. HEAD: Normocephalic, atraumatic, normal hair distribution for gender/age. EYES: Normal conjunctiva, no exudates on lids/lashes. ENT: Nares patent, no circumoral cyanosis, no facial swelling NECK: Supple, trachea midline, painless cervical ROM. LUNGS/CHEST: Lungs CTA bilaterally, non-labored respirations, normal A/P diameter, symmetrical expansion, no chest wall deformity HEART (CV/PV): Regular rate and rhythm without murmur, no peripheral edema, no JVD. ABDOMEN: Soft, non-distended, no guarding, left lower quadrant tenderness without Rovsing's, negative Polanco sign, no CVA tenderness to percussion bilaterally. MSK: Normal ROM, no swelling/deformity to bilateral UEs or LEs, moving all extremities without weakness, no cyanosis, spine midline without tenderness, normal curvature. NEURO: Mental Status AAOx4 - alert to person, place, time, events No facial droop, no forehead involvement. Motor: No focal weakness - strength 5/5 in bilateral UEs and LEs, proximal and distal, symmetric. Sensory: sensation intact to light touch globally. Gait normal: patient ambulated without ataxia into ED room. PSYCH: euthymic, cooperative, pleasant, appropriate speech Course Vital Signs Vital signs: Vital Signs Temperature 36.5 C 11/07/24 18:09 Pulse 78 11/07/24 18:09 Respiratory Rate 16 11/07/24 18:09 Blood Pressure 149/86 H 11/07/24 18:09 Pulse Oximetry 99 11/07/24 18:09 Temperature 36.5 C 11/07/24 18:09 Temperature Source Oral 11/07/24 18:09 Pulse 78 11/07/24 18:09 Respiratory Rate 16 11/07/24 18:09 Blood Pressure 149/86 H 11/07/24 18:09 Blood Pressure Position Sitting 11/07/24 18:09 Pulse Oximetry 99 11/07/24 18:09 Oxygen Delivery Method Room Air 11/07/24 18:09 Oxygen Flow Rate 0 11/07/24 18:09 Pain Level 6 11/07/24 18:09 Medical Decision Making This dictation utilizes [id number] dictation software and may contain unedited grammatical errors. 39 year-old male presents to ED today by POV/ambulating with a chief complaint of LLQ abdominal pain, occasional bloody stools, hard stools with onset this morning. Quality described as soreness in left lower abdomen, no radiation to nausea/vomiting, fever, black stools, cough, shortness of breath, chest pain. Severity is described as moderate. Palliating factors include nothing specific attempted. Provoking factors include nothing specific. Events leading up to the incident/Associated Symptoms: Patient endorses history of diverticulosis. Patients' medical history: Chronic abdominal pain, polysubstance abuse and remote history. Family and social history: Noncontributory, no active drug use or EtOH use. Pertinent exam findings / vital signs include left lower quadrant abdominal tenderness without Rovsing's, negative Polanco sign, benign cardiopulmonary exam, neuro intact, nontoxic and afebrile. Differential / pathologies of concern include diverticulitis, colitis, constipation, less likely renal colic. Diagnostic studies of: -CBC, CMP, CRP/ESR, lactate, magnesium, lipase, UA, CT ABD/pelvis without contrast. -CBC unremarkable -Inflammatory markers negative -Magnesium negative -Lipase negative -UA without acute pathology -Lactate negative -CT shows no bowel obstruction or inflammation, no hydronephrosis Interventions of: -Patient declined analgesics. ED Course/Assessment/Plan: 39-year-old male with chronic abdominal pain presents with left-sided abdominal pain, unremarkable workup and CT, suspect mild colitis, not likely diverticulitis with any microperforation or abscess, patient is negative for sepsis, counseled on getting a referral to general surgery for colonoscopy. Findings not consistent with inflammatory bowel disease, diverticulitis with perforation or abscess, renal colic, sepsis. Disposition of abdominal pain of unknown cause. Patient verbalized understanding of the plan and return to ED criteria and engaged in shared decision making. Medical Records Medical records reviewed: Yes I reviewed the patient's medical records. Imaging Data Radiologic Study: Attestation: I personally reviewed and interpreted this imaging study as follows: Imaging: CT Scan Radiologist's impression: Exam: CT Abdomen And Pelvis Without Contrast Exam date and time: 11/07/2024 7:47 PM Age: 39 years old Clinical indication: Abdominal pain; Localized; Left lower quadrant (llq); Llq tenderness TECHNIQUE: Imaging protocol: Computed tomography of the abdomen and pelvis without contrast. Radiation optimization: All CT scans at this facility use at least one of these dose optimization techniques: automated exposure control; mA and/or kV adjustment per patient size (includes targeted exams where dose is matched to clinical indication); or iterative reconstruction. COMPARISON: CT ABDOMEN PELVIS WO 10/04/2024 1:50 PM FINDINGS: Limitations: The lack of intravenous contrast limits evaluation of the solid organs. Liver: Unremarkable liver. No mass identified. Gallbladder and biliary ducts: The gallbladder is unremarkable. No calcified stones. No ductal dilation. Pancreas: No ductal dilation. No pancreatic lesion seen. Spleen: The spleen is unremarkable. No splenomegaly. Adrenal glands: Normal. No mass. Kidneys and ureters: Normal. No hydronephrosis. Stomach and bowel: The colon is normal. There is sigmoid diverticulosis without acute diverticulitis. No evidence of bowel obstruction or significant bowel inflammation. Appendix: No evidence of appendicitis. Intraperitoneal space: No free air. No significant fluid collection. Vasculature: No abdominal aortic aneurysm. Lymph nodes: No enlarged lymph nodes. Urinary bladder: Unremarkable as visualized. Reproductive: Unremarkable as visualized. Bones/joints: Multilevel degenerative disc disease and facet arthropathy noted in the lumbar spine most prominent at the L2-L3 level with bilateral neural narrowing. No acute fracture. Soft tissues: Unremarkable. IMPRESSION: 1. No evidence of bowel obstruction or severe bowel inflammation. 2. No nephrolithiasis or hydronephrosis. Dictated and Authenticated by: Deborah Mijares MD. Lab Data Lab results reviewed: Yes I reviewed the patient's lab results. Labs: Laboratory Tests Range/Units 11/07/24 11/07/24 19:39 20:47 WBC (4.4-10.8) 10^3/uL 8.24 RBC (4.36-5.78) 10^6/uL 4.54 Hgb (13.5-17.5) g/dL 13.9 Hct (40.0-50.0) % 40.9 MCV (80-95) fL 90 MCH (27.0-33.0) pg 30.6 MCHC (32.0-36.0) % 34.0 RDW (11.8-14.1) % 12.4 Plt Count (130-400) 10^3/uL 212 MPV (8.0-11.0) fL 10.5 Immature Gran % % 0.2 Neutrophils % % 60.1 Lymphocytes % % 29.2 Monocytes % % 6.7 Eosinophils % % 3.0 Basophils % % 0.8 Nucleated RBC % (0.0-0.3) % 0.0 Absolute Neutrophils (1.2-6.7) 10^3/uL 4.94 Absolute Lymphocytes (1.2-3.4) 10^3/uL 2.41 Absolute Monocytes (0.1-0.8) 10^3/uL 0.55 Absolute Eosinophils (0.0-0.7) 10^3/uL 0.25 Absolute Basophils (0.0-0.2) 10^3/uL 0.07 ESR (0-15) mm/hr 5 VBG Lactate (<or=2.0) mmol/L 1.4 Sodium (136-145) mmol/L 142 Potassium (3.5-5.1) mmol/L 4.4 Chloride (98-107) mmol/L 106 Carbon Dioxide (21.0-32.0) mmol/L 28.5 Anion Gap (3-11) mmol/L 7.5 BUN (7-18) mg/dL 15 Creatinine (0.70-1.30) mg/dL 0.9 Est GFR (CKD-EPI 2020) (mL/min/1.73m2) 110.04 Glucose (74-106) mg/dL 96 Calcium (8.5-10.1) mg/dL 9.3 Magnesium (1.8-2.4) mg/dL 2.4 Total Bilirubin (0.2-1.0) mg/dL 0.37 AST (15-37) U/L 26 ALT (16-63) U/L 19 Alkaline Phosphatase (46-116) U/L 99 C-Reactive Protein (<or=0.5) mg/dL < 0.50 Total Protein (6.4-8.2) g/dL 7.5 Albumin (3.4-5.0) g/dL 4.0 Lipase (<78) U/L 36 Urine Color (Yellow) Yellow Urine Clarity (Clear) Clear Urine pH (5-8) 6.0 Ur Specific [place] (1.005-1.025) >= 1.030 H Urine Protein (Neg-Trace) mg/dL Negative Urine Ketones (Negative) mg/dL Negative Urine Blood (Negative) Trace-intact H Urine Nitrite (Negative) Negative Urine Bilirubin (Negative) Negative Urine Urobilinogen (Up to 0.2) mg/dL 1.0 H Ur Leukocyte Esterase (Negative) Negative Urine RBC (0-2) HPF 0-2 Urine WBC (0-5) HPF Negative Ur Epithelial Cells (Negative) HPF Negative Urine Crystals (Negative) HPF Negative Urine Bacteria (Negative) HPF Negative Urine Casts (Negative) LPF Negative Urine Mucus (Negative) Trace Ur Culture Indicated? No Urine Glucose (Negative) mg/dL Negative Quality:SDOH Health Related Social Needs: Health related social needs housing instability, housed, with risk of homelessness (Z59.811) PFSH All Active Problems (Updated 11/07/24 @ 21:12 by LYDIA Hernandez) Abdominal pain of unknown cause (Acute) Abscess, dental (Acute) Scrotal pain (Acute) Medical History (Updated 11/07/24 @ 21:12 by LYDIA Hernandez) Chronic abdominal pain Polysubstance abuse Lower back pain Sciatica Hepatitis C antibody test positive Acute stress reaction Blurred vision Rectal bleeding Abnormal weight loss Social History Smoking/Tobacco Use Status: Former Tobacco Use Quit Date: 09/29/24 Smoking risk assessment performed?: Yes Alcohol Intake: former Drug use: Current Sobriety Substance use type: former substance user Housing: house Do you feel safe at home: Yes Do you feel safe in your relationship?: Yes
--- NOTE | 2024-11-07 19:30 | DI.CT_ITS ---
Exam(s) CT ABDOMEN PELVIS WO EXAM: CT ABDOMEN PELVIS WO CLINICAL HISTORY: LLQ tenderness. TECHNIQUE: Imaging Protocol: Axial computed tomography images with coronal and sagittal reformatted images were created and reviewed. Oral: yes / no COMPARISON: No exams were available for comparison FINDINGS: Lung Bases: No acute findings. Liver: Normal density. No suspicious mass. Gallbladder and biliary tract: No radiodense calculus or biliary dilation. Pancreas: Normal density. No abnormal calcifications or inflammatory process. Spleen: Normal. Kidneys: Normal size, contour and axis. No radiodense stones. No obstructive uropathy. No suspicious masses seen. Adrenal glands: No masses seen. Lymph nodes: Within normal limits. Vasculature: Abdominal aorta non-dilated. Soft tissues: Unremarkable. Bladder: No wall thickening. No mass or calculi. Bowel: Stomach is distended with food. There is a large quantity of stool noted from the right throu gh transverse colon. No obstruction or bowel wall thickening. Peritoneal cavity: No ascites. No focal collection. No mesenteric inflammatory response. Reproductive organs: Unremarkable. Bones: Degenerative disc changes greatest at L2-3. IMPRESSION: No acute abnormality in the abdomen or pelvis. Large quantity fecal material could indicate constipation. RADIATION DOSE DELIVERED: 479.66mGy.cm Total DLP DATA REPOSITORY: All CT scans at this facility are submitted to the National Radiology Data Registry (NRDR) Dose Index Registry (DIR) with the [employer] (ACR). RADIATION OPTIMIZATION: All CT scans at this facility use at least one of these dose optimization te chniques: automated exposure control; mA and/or kV adjustment per patient size (includes targeted exa ms where dose is matched to clinical indication); or iterative reconstruction.
[2024-11-07 19:45] LABS: Lactate 1.4 mmol/L (<or=2.0)
[2024-11-07 19:50] LABS: Abs Immature Grans 0.02 10^3/uL (0.0-0.06); Absolute Basophil Count 0.07 10^3/uL (0.0-0.2); Absolute Eosinophil Count 0.25 10^3/uL (0.0-0.7); Absolute Lymphocyte Count 2.41 10^3/uL (1.2-3.4); Absolute Monocyte Count 0.55 10^3/uL (0.1-0.8); Absolute Neutrophil Count 4.94 10^3/uL (1.2-6.7); Basophils % 0.8 %; HCT 40.9 % (40.0-50.0); HGB 13.9 g/dL (13.5-17.5); Immature Grans % 0.2 %; Lymphocytes % 29.2 %; MCH 30.6 pg (27.0-33.0); MCV 90 fL (80-95); MPV 10.5 fL (8.0-11.0); Monocytes % 6.7 %; Neutrophils % 60.1 %; Platelet Count 212 10^3/uL (130-400); RBC 4.54 10^6/uL (4.36-5.78); RDW 12.4 % (11.8-14.1); RDW-SD 40.5 fL; WBC 8.24 10^3/uL (4.4-10.8)
[2024-11-07 19:53] LABS: ESR 5 mm/hr (0-15)
[2024-11-07 20:02] LABS: Magnesium 2.4 mg/dL (1.8-2.4)
[2024-11-07 20:06] LABS: ALT 19 U/L (16-63); AST 26 U/L (15-37); Alkaline Phosphatase 99 U/L (46-116); Anion Gap 7.5 mmol/L (3-11); BUN 15 mg/dL (7-18); Bilirubin, Total 0.37 mg/dL (0.2-1.0); C-Reactive Protein < 0.50 mg/dL (<or=0.5); CO2 28.5 mmol/L (21.0-32.0); CREATININE 0.9 mg/dL (0.70-1.30); Calcium 9.3 mg/dL (8.5-10.1); Chloride 106 mmol/L (98-107); Estimated GFR 110.04 (mL/min/1.73m2); Glucose 96 mg/dL (74-106); Potassium 4.4 mmol/L (3.5-5.1); Sodium 142 mmol/L (136-145); Total Protein 7.5 g/dL (6.4-8.2)
[2024-11-07 20:39] LABS: Lipase 36 U/L (<78)
[2024-11-07 20:53] LABS: Bilirubin Negative (Negative); Blood Trace-intact (Negative); Clarity Clear (Clear); Glucose Negative (Negative); Ketones Negative (Negative); Leukocyte Esterase Negative (Negative); Nitrite Negative (Negative); Specific Gravity >= 1.030 (1.005-1.025)
[2024-11-07 20:55] VITALS: RESP 16
--- NOTE | 2024-11-07 20:56 | DI.VRAD_ITS ---
PROCEDURE INFORMATION: Exam: CT Abdomen And Pelvis Without Contrast Exam date and time: 11/07/2024 7:47 PM Age: 39 years old Clinical indication: Abdominal pain; Localized; Left lower quadrant (llq); Llq tenderness TECHNIQUE: Imaging protocol: Computed tomography of the abdomen and pelvis without contrast. Radiation optimization: All CT scans at this facility use at least one of these dose optimization techniques: automated exposure control; mA and/or kV adjustment per patient size (includes targeted exams where dose is matched to clinical indication); or iterative reconstruction. COMPARISON: CT ABDOMEN PELVIS WO 10/04/2024 1:50 PM FINDINGS: Limitations: The lack of intravenous contrast limits evaluation of the solid organs. Liver: Unremarkable liver. No mass identified. Gallbladder and biliary ducts: The gallbladder is unremarkable. No calcified stones. No ductal dilation. Pancreas: No ductal dilation. No pancreatic lesion seen. Spleen: The spleen is unremarkable. No splenomegaly. Adrenal glands: Normal. No mass. Kidneys and ureters: Normal. No hydronephrosis. Stomach and bowel: The colon is normal. There is sigmoid diverticulosis without acute diverticulitis. No evidence of bowel obstruction or significant bowel inflammation. Appendix: No evidence of appendicitis. Intraperitoneal space: No free air. No significant fluid collection. Vasculature: No abdominal aortic aneurysm. Lymph nodes: No enlarged lymph nodes. Urinary bladder: Unremarkable as visualized. Reproductive: Unremarkable as visualized. Bones/joints: Multilevel degenerative disc disease and facet arthropathy noted in the lumbar spine most prominent at the L2-L3 level with bilateral neural narrowing. No acute fracture. Soft tissues: Unremarkable. IMPRESSION: 1. No evidence of bowel obstruction or severe bowel inflammation. 2. No nephrolithiasis or hydronephrosis. Dictated and Authenticated by: Deborah Mijares MD. Orderin Chelsea Godoy MD
[2024-11-07 21:00] LABS: Bacteria Negative HPF (Negative); C & S Indicated? No; Casts Negative LPF (Negative); Crystals Negative HPF (Negative); Epithelial Cells Negative HPF (Negative); Mucus Trace (Negative); RBC 0-2 HPF (0-2); WBC Negative HPF (0-5)
[2024-11-07 21:19] VITALS: BP 129/85; PULSE 71; RESP 18; TEMP 37.1; O2SAT 100
[2024-11-07 21:30] VITALS: BP 129/85; PULSE 71; RESP 18; TEMP 37.1; O2SAT 100
== END 2024-11-07 21:30 | disposition home or self-care (01) ==
PROVIDERS: Emergency Provider Physician Assistant; PCP Nurse Practitioner Family
DX: R10.32 Left lower quadrant pain (principal); K92.1 Melena; Z87.891 Personal history of nicotine dependence
CPT/HCPCS: 80053; 83690; 85652; 99284; 74176; 81003; 81015; 83605; 83735; 85025; 86140

== ENCOUNTER 2024-11-10 00:36 | Emergency (ER) | payer MEDICAID, SELFPAY ==
[2024-11-10] VITALS (28 sets, daily range): BP systolic 109–140; BP diastolic 67–90; PULSE 67–100; RESP 18; TEMP 36.4; O2SAT 96–100
--- NOTE | 2024-11-10 00:56 | W.ED.GENAD ---
Discharge Plan Disposition Patient Disposition: Home Condition: Good Discharge Details Clinical Impression: Abdominal pain of unknown cause Primary Care Provider: NEGRA LEE ED Provider: Dino Sanz [place] [facility] Rx's Prescriptions: Continued famotidine 40 mg tablet 40 mg PO DAILY Patient Comments: TAKE ONE TABLET BY MOUTH EVERY DAY Discharge Instructions Instructions: Abdominal Pain, Adult ED Additional Instructions: You were seen for recurrent abdominal pain. Laboratory studies remain normal. CTA of the abdomen and pelvis shows widely patent arteries with no evidence of significant abnormalities, bowel obstruction, bowel ischemia. No clear etiology for your pain. Please follow-up with primary care. Consider referral to GI. Return to ED for fever, persistent vomiting, new or worsening pain, other concerns. Referrals: NEGRA LEE, AMMONI[employer] SULFATE OPERATOR [Primary Care Provider] - [facility] General Mode of arrival: ambulatory. Date/Time Provider Initiated Documentation: 11/10/24 00:49. Limitations to Documentation: no limitations. Information obtained by: patient, RN notes reviewed and old records reviewed. HPI Narrative: Patient presents to ED by ambulance with complaint of left abdominal and flank pain. Patient seen here 2 days ago for same. Was seen for same and late September as well. Labs and imaging at both times were unremarkable. Patient had told nursing that he was fine until tonight when pain recurred. Patient telling me that pain never resolved. Pain much more severe now. Hurts to move or take of breath but pain is in the abdomen not in the chest or upper back. Denies any fever, cough, chest pain, vomiting, diarrhea, hematuria, dysuria. Did not take anything for pain prior to coming in. States that the pain woke him up out of sleep. Related Data Home Medications ?Medication ?Instructions ?Recorded ?Confirmed famotidine 40 mg tablet 40 mg PO DAILY 11/07/24 11/10/24 Allergies Allergy/AdvReac Type Severity Reaction Status Date / Time iodine Allergy Unknown Swelling/Ed Unverified 11/10/24 01:05 josh codeine AdvReac Mild vomiting Verified 11/10/24 00:44 General Stated Complaint: Abd Prob ANH: 3 Exam Narrative Exam Narrative: Const: WDWN male in NAD. VS per triage. HEENT: NC/AT. Normal facial exam. Neck: Supple. Trachea midline. Lungs: Normal respiratory effort. Lungs are clear. Cor: RRR without murmur. Good radial pulses. GI: Soft/ND/NT. There is no significant tenderness to the abdomen. Back: No CVAT. Neuro: A+O x 3. Normal speech, mentation, gait. Cranial nerves II - XII grossly intact. No gross motor or sensory deficit. Course Vital Signs Vital signs: Vital Signs Temperature 97.6 F 11/10/24 00:36 Pulse 80 11/10/24 00:36 Respiratory Rate 18 11/10/24 00:36 Blood Pressure 131/82 11/10/24 00:36 Pulse Oximetry 99 11/10/24 00:36 Temperature 97.6 F 11/10/24 00:45 Temperature Source Oral 11/10/24 00:45 Pulse 80 11/10/24 00:45 Respiratory Rate 18 11/10/24 00:45 Blood Pressure 131/82 11/10/24 00:45 Blood Pressure Position Sitting 11/10/24 00:45 Pulse Oximetry 99 11/10/24 00:45 Oxygen Delivery Method Room Air 11/10/24 00:45 Oxygen Flow Rate 0 11/10/24 00:36 Pain Level 8 11/10/24 00:45 Medical Decision Making Patient returns to ED with recurrent/continued left-sided abdominal pain which she describes as severe. This is now his third visit this year and second this week for similar complaints. He has history of abdominal pain in the past. His labs and scans have been negative though the scans are without contrast. Patient reports that as a child he had iodine placed on a dog bite which resulted in localized swelling. Suspect this probably had more to do with the dog bite than the iodine. In any event IV contrast nowadays has no iodine whatsoever. I have discussed with patient and we will proceed with a CTA of the abdomen to evaluate for possibility of mesenteric ischemia. There is no history of atrial fibrillation or clots, he is a former smoker, consider decreased flow intermittently as a cause of the ischemia. His noncontrast studies have not shown renal stones or ureteral stones. He is not tender in the abdomen on my exam. Ischemia is about the only thing that potentially could be causing his severe pain. Will dose him with ketorolac pending studies. Repeat CBC, BMP and urinalysis ordered. Patient CBC, BMP, urinalysis are all normal. CTA of the abdomen pelvis per preliminary radiology read with no evidence of ischemic change. All arteries/vessels are widely patent. There is no evidence of obstruction. Unremarkable CT of the abdomen. Patient improved after ketorolac and is sitting on stretcher reading. Will plan discharge home to follow-up with PCP. Consider referral to GI. Return precautions provided. Medical Records Medical records reviewed: Yes I reviewed the patient's medical records. Medical records narrative: ED visits Lab Data Lab results reviewed: Yes I reviewed the patient's lab results. Lab results narrative: see MDM Quality:SDOH Health Related Social Needs: Health related social needs housing instability, housed, with risk of homelessness (Z59.811) PFSH All Active Problems (Updated 11/10/24 @ 03:04 by Dino Sanz MD) Abnormal weight loss (Acute) Abdominal pain of unknown cause (Acute) Medical History Chronic abdominal pain Polysubstance abuse Lower back pain Sciatica Hepatitis C antibody test positive Social History Smoking/Tobacco Use Status: Former Tobacco Use Quit Date: 09/29/24 Smoking risk assessment performed?: Yes Alcohol Intake: former Drug use: Current Sobriety Substance use type: former substance user Housing: house Do you feel safe at home: Yes Do you feel safe in your relationship?: Yes
[2024-11-10] MEDS: Ketorolac 30 MG/ML VIAL IVP (01:15)
[2024-11-10 01:18] LABS: Abs Immature Grans 0.02 10^3/uL (0.0-0.06); Absolute Basophil Count 0.07 10^3/uL (0.0-0.2); Absolute Eosinophil Count 0.23 10^3/uL (0.0-0.7); Absolute Lymphocyte Count 3.31 10^3/uL (1.2-3.4); Absolute Monocyte Count 0.55 10^3/uL (0.1-0.8); Absolute Neutrophil Count 4.66 10^3/uL (1.2-6.7); Basophils % 0.8 %; Eosinophils % 2.6 %; HGB 14.3 g/dL (13.5-17.5); Immature Grans % 0.2 %; Lymphocytes % 37.4 %; MCH 30.8 pg (27.0-33.0); MCV 90 fL (80-95); MPV 10.3 fL (8.0-11.0); Monocytes % 6.2 %; Neutrophils % 52.8 %; Platelet Count 221 10^3/uL (130-400); RBC 4.65 10^6/uL (4.36-5.78); RDW 12.3 % (11.8-14.1); RDW-SD 40.5 fL; WBC 8.84 10^3/uL (4.4-10.8)
[2024-11-10 01:26] LABS: Anion Gap 2.5 mmol/L (3-11); BUN 15 mg/dL (7-18); CO2 33.5 mmol/L (21.0-32.0); CREATININE 1.2 mg/dL (0.70-1.30); Calcium 9.3 mg/dL (8.5-10.1); Chloride 106 mmol/L (98-107); Estimated GFR 77.92 (mL/min/1.73m2); Glucose 109 mg/dL (74-106); Potassium 4.3 mmol/L (3.5-5.1); Sodium 142 mmol/L (136-145)
[2024-11-10 01:29] LABS: Bilirubin Negative (Negative); Blood Negative (Negative); Clarity Clear (Clear); Glucose Negative (Negative); Ketones Negative (Negative); Leukocyte Esterase Negative (Negative); Nitrite Negative (Negative); Specific Gravity >= 1.030 (1.005-1.025); Urobilinogen 0.2 mg/dL (Up to 0.2); pH 6.5 (5-8)
[2024-11-10] MEDS: Omnipaque 350 MG/ML 100 ML BTL IJ (02:07)
[2024-11-10] MEDS: Normal Saline - Diluent 50 ML VIAL IJ (02:08)
--- NOTE | 2024-11-10 02:08 | DI.CT_ITS ---
Exam(s) CT ABDOMEN PELVIS CTA EXAM: CT ABDOMEN PELVIS CTA CLINICAL HISTORY: recurrent severe left abd pain. TECHNIQUE: Imaging Protocol: Axial CT angiography was performed with multi-slice acquisition and m ulti-planar and/or 3D reconstructions. CONTRAST MATERIAL: Intravenous: Omnipaque 350 Contrast volume:100 mL Oral: / no COMPARISON: CT CT ABDOMEN PELVIS WO from 11/07/2024 FINDINGS: Vascular Structures: Celiac [place]:No evidence of stenosis. SMA: No evidence of stenosis. Renal Arteries: No evidence of stenosis. There is a single renal artery perfusing each kidney. Aorta: No aneurysm. No dissection. No significant stenosis. Iliac Arteries: No evidence of stenosis. Common Femoral Arteries: No evidence of stenosis. Soft Tissues:Unremarkable. Lung bases:No acute findings. Liver: Normal size. Normal density. No measurable mass. Gallbladder and biliary tract: No evidence of calculi. No gallbladder wall thickening. No biliary di lation. Pancreas: Normal density, no abnormal calcifications or inflammatory process. Spleen: Normal. Kidneys: Normal size, contour and axis. No obstructive uropathy. No masses seen. No evidence of calcu li. Adrenal glands: No masses seen. Bladder: No gross wall thickening. No evidence of calculi. No evidence of mass. Bowel: No obstruction or bowel wall thickening. Large quantity of stool noted from cecum through mi d descending colon. Rectum is distended with air. No source of GI bleeding identified. Peritoneal cavity: No ascites. No focal collection. No mesenteric inflammatory response. Bones: No acute findings. Old sacral fracture. Degenerative changes at L2-3. Lymph nodes: Within normal limits. Reproductive: Unremarkable. IMPRESSION: Normal CT Angiogram of the Abdomen. Increased quantity of stool, otherwise unremarkable exam. RADIATION DOSE DELIVERED: 673.67mGy.cm Total DLP DATA REPOSITORY: All CT scans at this facility are submitted to the National Radiology Data Registry (NRDR) Dose Index Registry (DIR) with the [employer] (ACR). RADIATION OPTIMIZATION: All CT scans at this facility use at least one of these dose optimization te chniques: automated exposure control; mA and/or kV adjustment per patient size (includes targeted exa ms where dose is matched to clinical indication); or iterative reconstruction.
--- NOTE | 2024-11-10 02:47 | DI.VRAD_ITS ---
PROCEDURE INFORMATION: Exam: CTA Abdomen and Pelvis With Contrast Exam date and time: 11/10/2024 1:55 AM Age: 39 years old Clinical indication: Abdominal pain; Localized; Recurrent severe left abd pain. Eval for possible mesenteric ischemia TECHNIQUE: Imaging protocol: Computed tomographic angiography of the abdomen and pelvis with contrast. Exam focused on the arteries. 3D rendering (Not supervised by radiologist): MIP and/or 3D reconstructed images were created by the technologist. Radiation optimization: All CT scans at this facility use at least one of these dose optimization techniques: automated exposure control; mA and/or kV adjustment per patient size (includes targeted exams where dose is matched to clinical indication); or iterative reconstruction. Contrast material: [id number]; COMPARISON: CT ABDOMEN PELVIS WO 11/07/2024 7:47 PM FINDINGS: Limitations: Paucity of intra-abdominal fat. Lungs: Mild dependent atelectasis. Aorta: Normal caliber abdominal aorta. Celiac trunk and mesenteric arteries: Celiac, superior mesenteric, and inferior mesenteric arteries widely patent. Renal arteries: Two renal arteries on the right, both widely patent. Left renal artery widely patent. Right iliac arteries: Right common iliac, internal iliac, and external iliac arteries widely patent. Right femoral/popliteal arteries: Right common femoral and visualized proximal right superficial femoral arteries widely patent. Left iliac arteries: Left common iliac, internal iliac, and external iliac arteries widely patent. Left femoral/popliteal arteries: Left common femoral and visualized proximal left superficial femoral arteries widely patent. Liver: Normal appearing liver. Gallbladder and biliary ducts: Gallbladder collapsed and not well evaluated but grossly unremarkable, as seen. No calcified gallstones seen. No biliary dilatation. Pancreas: Normal appearing pancreas. Spleen: Normal appearing spleen. Adrenal glands: Normal appearing adrenal glands. Kidneys and ureters: Normal appearing kidneys. No hydronephrosis. Stomach and bowel: Stomach moderately distended with ingested material. No small bowel dilatation to suggest obstruction. No small bowel wall thickening. Normal-appearing fecal material in the cecum, ascending colon, transverse colon, and descending colon. Downstream colon and rectum relatively well evacuated but moderately distended with gas. No evidence of diverticulitis or colitis. Appendix: Appendix partially obscured but normal in caliber and appearance through its visualized portion. Intraperitoneal space: No gross ascites or free air. Lymph nodes: No pathologically enlarged mesenteric, retroperitoneal, or pelvic sidewall lymph nodes. Urinary bladder: Normal appearing urinary bladder. Reproductive: Normal-appearing prostate gland and seminal vesicles. Bones/joints: No acute fracture seen among the bones of the abdomen or pelvis. Spinal degenerative change with discogenic degeneration at several lumbar levels. Abrupt angulation of the tailbone through the S3 segment in keeping with an old tailbone fracture. Soft tissues: No significant ventral or inguinal hernia. IMPRESSION: 1. No acute bowel pathology demonstrated. No focus of active bleeding identified. 2. Celiac, superior mesenteric, and inferior mesenteric arteries widely patent. Dictated and Authenticated by: Zafar Alston MD. Orderin Yvon Sun MD
== END 2024-11-10 03:16 | disposition home or self-care (01) ==
PROVIDERS: Emergency Provider Emergency Medicine; PCP Nurse Practitioner Family
DX: R10.32 Left lower quadrant pain (principal); Z87.891 Personal history of nicotine dependence
CPT/HCPCS: 36415; 80048; 96374; 99285; 74174; 81003; 85025; 99284; J1885; J3490

== ENCOUNTER 2025-08-09 15:02 | Outpatient (REF) | payer MEDICAID, SELFPAY ==
[2025-08-11 19:24] LABS: HIV-1/2 Ag & Ab Screen Negative (Negative)
[2025-08-14 11:27] LABS: Chlamydia Result Negative (Negative); GC Result Negative (Negative)
[2025-08-14 11:56] LABS: Hepatitis C Ab w Rflx HCV PCR Reactive (Negative)
[2025-08-14 12:41] LABS: Syphilis Serology (RPR) Negative (Negative)
== END 2025-08-09 15:03 | disposition home or self-care (01) ==
LOC: LBN 15:02
PROVIDERS: PCP Nurse Practitioner Family; Visit Provider Physician Assistant Medical
DX: Z11.3 Encounter for screening for infections with a predominantly sexual mode of transmission (principal)
CPT/HCPCS: 86803; 87389; 87491; 87522; 87591; 86592